=== PATIENT | female | born 1955 | race Caucasian/White ===

== ENCOUNTER 2018-02-18 23:25 | Observation (INO) ==
[2018-02-18] MEDS ORDERED: Ipratropium/Albuterol Neb 3 ML IH STA (23:51)
[2018-02-18] MEDS ORDERED: Aspirin 81 MG TAB.CHEW PO STA (23:51)
--- NOTE | 2018-02-18 23:55 | Emergency Department Note ---
Disposition Clinical Impression: Chest pain Qualifiers: Chest pain type: unspecified Qualified Code(s): R07.9 - Chest pain, unspecified Congestive heart failure Qualifiers: Heart failure type: unspecified Heart failure chronicity: chronic Qualified Code(s): I50.9 - Heart failure, unspecified COPD (chronic obstructive pulmonary disease) Qualifiers: COPD type: unspecified COPD Qualified Code(s): J44.9 - Chronic obstructive pulmonary disease, unspecified Asthma Qualifiers: Asthma severity: unspecified severity Asthma persistence: unspecified Asthma complication type: unspecified Qualified Code(s): J45.909 - Unspecified asthma, uncomplicated Disposition: Admitted As Inpatient Condition: Fair Referrals: Jagdeep Walters MD [Primary Care Provider] - Forms: ED Satisfaction Letter General Adult HPI - General Chief complaint: ED Shortness of Breath/Dyspnea Stated complaint: GEETA Time Seen by Provider: 02/18/18 23:29 Source: patient, EMS Limitations: no limitations - History of Present Illness HPI Narrative: Patient presents complaining of shortness of breath today associated with some intermittent chest discomfort. The last time she felt chest pain was about 6 PM. The pain is an aching discomfort in both sides of her chest, not made worse with a deep breath or with a cough. Her dyspnea is made with his exertion , chest pain is not worse with exertion. She has not had a fever or cough, no hemoptysis. She cannot tell me whether this feels more like her previous episodes of heart failure or more like her previous episodes of exacerbations of asthma or COPD. No recent travel, trauma or surgery. She has a hysterectomy scheduled in the coming weeks, she says that they do not know if she has cancer or not, and that they will find out when they do the hysterectomy. No prior history of cancer. She is not on hormone replacement. No history of DVT or PE. She is on home oxygen for pulmonary disease. Pain Scale: 0 - Related Data Home Medications Medication Instructions Recorded Confirmed ALPRAZolam [Xanax 0.5 MG Tablet] 0.5 mg PO TID PRN #0 05/06/15 05/01/16 Gabapentin [Neurontin] 600 mg PO QAM #0 05/06/15 05/01/16 Ergocalciferol (VITAMIN D2) 50,000 unit PO MO #0 09/16/15 05/01/16 [Vitamin D2 (50,000 UNIT)] Albuterol Sulfate [Albuterol 2 puff IH Q6HR PRN 05/01/16 05/01/16 Inhaler] Celecoxib [Celebrex] 200 mg PO DAILY 05/01/16 05/01/16 Citalopram Hydrobromide [Celexa] 40 mg PO HS 05/01/16 05/01/16 Gabapentin [Neurontin] 1,200 mg PO HS 05/01/16 05/01/16 HYDROcodone/Acet 5/325 mg [[place] 1 tab PO Q12H PRN 05/01/16 05/01/16 5-325 mg] Ipratropium/Albuterol Neb [Duoneb] 3 ml IH Q6HR PRN 05/01/16 05/01/16 Meloxicam [Mobic] 15 mg PO DAILY 05/01/16 05/01/16 Montelukast [Singulair] 10 mg PO HS 05/01/16 05/01/16 Simethicone [Bicarsim] 80 mg PO BID 05/01/16 05/01/16 Torsemide [Demadex] 10 mg PO DAILY PRN 05/01/16 05/01/16 Previous Rx's Medication Instructions Recorded Atorvastatin [Lipitor] 40 mg PO HS #30 tablet 11/17/15 Nitroglycerin 0.4 mg SL Q5MIN PRN #90 tab.subl 11/17/15 Aspirin Enteric Coated [Aspirin EC] 325 mg PO DAILY #21 tablet. 04/30/16 OxyCODONE Immed Rel [Roxicodone 5 5 - 10 mg PO Q6HR PRN #40 tablet 04/30/16 MG] ALPRAZolam [Xanax 0.5 MG Tablet] 0.5 mg PO TID PRN #30 tablet 05/05/16 Promethazine/Phenyleph/Codeine 5 ml PO Q6H PRN #120 ml 06/09/16 [Promethazine Vc-Codeine Syrup] cephALEXin [Keflex] 500 mg PO QID #40 capsule 06/09/16 Amoxicillin/Clavulanate [Augmentin] 875 mg PO BIDWM #20 tablet 06/10/16 Promethazine [Phenergan] 25 mg PO Q6HR PRN #16 tablet 09/01/16 Amoxicillin/Clavulanate [Augmentin] 875 mg PO BIDWM #20 tablet 10/25/16 Promethazine/Dextromethorphan 5 ml PO Q4H PRN #120 ml 10/25/16 [Promethazine-Dm Syrup] Ondansetron ODT [Zofran ODT] 4 mg SL Q6HR #10 tab.rapdis 03/10/17 Ondansetron ODT [Zofran ODT] 4 mg SL Q6HR PRN #20 tab.rapdis 04/05/17 predniSONE [PredniSONE] 60 mg PO DAILY #15 tablet 04/05/17 predniSONE [PredniSONE] 60 mg PO NOW #15 tablet 07/22/17 Allergies Allergy/AdvReac Type Severity Reaction Status Date / Time acetaminophen [From Vicodin] Allergy Unknown Vomiting Verified 07/02/17 21:11 hydrocodone [From Vicodin] Allergy Unknown Vomiting Verified 07/02/17 21:11 All systems ED: reviewed and negative except as stated. Past Medical History - Past Medical History Medical history: Reports: asthma, CHF, COPD, hypertension Surgical history: Reports: cholecystectomy, other Psychiatric history: Reports: anxiety [employer] history: Reports: bilateral tubal ligation - Social History Smoking Status: Never smoker Smokeless Tobacco Status: No Alcohol use: Reports: occasionally Drug use: Reports: none Physical Exam Vital signs noted please see nurse's notes. Gen.: Well-developed, well-nourished patient lying in bed who appears nontoxic. Head: Atraumatic, normocephalic. Eyes: Sclerae anicteric. ENT: Mucous membranes moist. Neck: No JVD Heart: Regular rate and rhythm without appreciable murmur. Lungs: Normal respiratory pattern without respiratory distress, breath sounds somewhat diminished, no rales, rhonchi or wheezing appreciated. No conversational dyspnea Abdomen: Soft, nontender, nondistended, no guarding or peritoneal signs. Skin: Warm and dry without rash. Neurologic: Awake, alert with normal speech and mental status. Cranial nerves grossly intact. No focal deficits or lateralizing signs. Psychiatric: Normal mood and affect. Musculoskeletal: No peripheral edema. No signs of trauma or DVT. Peripheral vascular: Radial pulses 2+ and symmetrical bilaterally. - General Limitations: no limitations General appearance: alert, in no apparent distress Course Vital Signs Temperature 98.6 F 02/18/18 23:28 Pulse Rate 70 02/18/18 23:28 Respiratory Rate 18 02/18/18 23:28 Blood Pressure 174/90 02/18/18 23:28 O2 Sat by Pulse Oximetry 97 02/18/18 23:28 Temperature 98.6 F 02/18/18 23:28 Pulse Rate 70 02/18/18 23:28 Respiratory Rate 18 02/19/18 00:11 Blood Pressure 174/90 02/18/18 23:28 O2 Sat by Pulse Oximetry 97 02/19/18 00:11 Oxygen Delivery Oxygen Delivery Nasal Cannula Medical Decision Making - MDM Narrative Medical decision making narrative: D-dimer is below the age-adjusted cutoff, she is low-risk by Wells criteria, PE is excluded. Her HEART score is 4 (1 for history, 1 for age, 2 for risk factors) . Will call for admission. Chest pain free at the time of admission, dyspnea improved after nebulizer treatments. - Lab Data Result diagrams: 02/19/18 00:07 02/19/18 00:07 Lab Results 02/19/18 02/19/18 02/19/18 Range/Units 00:07 00:07 00:07 WBC 8.2 (4.3-11.1) K/mcL RBC 4.31 (3.82-4.97) M/mcL Hgb 13.1 (11.5-15.4) g/dL Hct 38.8 (35.3-44.9) % MCV 90.0 (83.0-100.0) fL MCH 30.4 (28.0-33.3) pg MCHC 33.8 (31.6-35.5) g/dL RDW 13.5 (11.5-14.5) % Plt Count 229 (140-400) K/mcL MPV 9.9 (9.4-12.4) fL D-Dimer 565 H (0-500) ng/mLFEU Sodium 138 (136-145) mEq/L Potassium 3.6 (3.5-5.1) mEq/L Chloride 101 (98-107) mEq/L Carbon Dioxide 27 (23-29) mEq/L BUN 11 (8-23) mg/dL Creatinine 0.89 (0.60-1.20) mg/dL Est GFR ( Amer) > 60 (> 60) Est GFR (Non-Af Amer) > 60 (> 60) BUN/Creatinine Ratio 12 (6-26) Glucose 146 H (70-105) mg/dL Calculated Osmolality 288 (280-300) Calcium 8.9 (8.6-10.3) mg/dL Troponin I < 0.03 (< 0.04) ng/mL B-Natriuretic Peptide (Less than 100) pg/mL 02/19/18 Range/Units 00:07 WBC (4.3-11.1) K/mcL RBC (3.82-4.97) M/mcL Hgb (11.5-15.4) g/dL Hct (35.3-44.9) % MCV (83.0-100.0) fL MCH (28.0-33.3) pg MCHC (31.6-35.5) g/dL RDW (11.5-14.5) % Plt Count (140-400) K/mcL MPV (9.4-12.4) fL D-Dimer (0-500) ng/mLFEU Sodium (136-145) mEq/L Potassium (3.5-5.1) mEq/L Chloride (98-107) mEq/L Carbon Dioxide (23-29) mEq/L BUN (8-23) mg/dL Creatinine (0.60-1.20) mg/dL Est GFR ( Amer) (> 60) Est GFR (Non-Af Amer) (> 60) BUN/Creatinine Ratio (6-26) Glucose (70-105) mg/dL Calculated Osmolality (280-300) Calcium (8.6-10.3) mg/dL Troponin I (< 0.04) ng/mL B-Natriuretic Peptide 71 (Less than 100) pg/mL - EKG Data EKG #1 EKG attestation: Yes I reviewed and interpreted this EKG. EKG shows normal: sinus rhythm (Rate 67, normal intervals and QRS duration. No acute ischemic changes. No evidence of right heart strain. Other than a flattened T-wave in lead aVL, this is a normal EKG.)
[2018-02-19 00:17] LABS: Hematocrit 38.8 % (35.3-44.9); Hemoglobin 13.1 g/dL (11.5-15.4); Mean Corpuscular HGB Conc 33.8 g/dL (31.6-35.5); Mean Corpuscular Hemoglobin 30.4 pg (28.0-33.3); Mean Platelet Volume 9.9 fL (9.4-12.4); Platelet Count 229 K/mcL (140-400); Red Blood Count 4.31 M/mcL (3.82-4.97); Red Cell Distribution Width 13.5 % (11.5-14.5)
[2018-02-19 00:39] LABS: BUN/Creatinine Ratio 12 (6-26); Blood Urea Nitrogen 11 mg/dL (8-23); Calcium 8.9 mg/dL (8.6-10.3); Carbon Dioxide 27 mEq/L (23-29); Chloride 101 mEq/L (98-107); Glucose 146 mg/dL (70-105); Osmolality,Calculated 288 (280-300); Potassium 3.6 mEq/L (3.5-5.1); Sodium 138 mEq/L (136-145); Troponin I < 0.03 ng/mL (< 0.04); eGFR For African Americans > 60 (> 60); eGFR For Non-African Americans > 60 (> 60)
[2018-02-19] MEDS ORDERED: predniSONE 20 MG TABLET PO STA (01:22)
[2018-02-19] MEDS ORDERED: Naloxone 0.4 MG/ML INJ IVP PRN (04:38)
[2018-02-19] MEDS ORDERED: Isovue-370 500 ML INFUS..BTL IV ONE ×2 (04:38→10:50)
[2018-02-19] MEDS ORDERED: *HR* Enoxaparin 120 MG/0.8 ML SYRINGE SQ STA (04:38)
[2018-02-19] MEDS ORDERED: Albuterol 2.5 MG/3 ML NEBULIZER IH PRN (04:38)
--- NOTE | 2018-02-19 05:21 | Internal Med History&Physical ---
Date of Encounter: 02/19/18 Time of Encounter: 04:35 Internal Medicine - H&P: HPI Chief complaint: chest pain Admitted From: Emergency Dept Plans for Post Hospital Care: Home History of present illness: Ms. Gunter is a 62 year old female who presents to the ER tonight with complaints of chest pain and shortness of breath. She was lying in bed resting comfortably and playing with her grandson when she developed sudden onset of sharp and heavy chest pain associatied with shortness of breath. Symptoms would not resolve and persisted. She therefore came to ER for evaluation. Workup in ER was negative except for an elevated d-dimer. According to ER staff , the d-dimer was age-adjusted and within normal. She was therefore admitted to hospitalist service for further workup and care. I reviewed old records and note that she just had a stress test 5 days ago which was negative. When I assessed the patient and discussed with her the symptoms and history, she describes the chest pain as sharp and heaviness and associated with dyspnea. It is different than the chest pain she was experiencing which led to her stress test. She denies any prior history of clots. She has no prolonged travel. History is negative for clots. However, she is currently being worked up for gynecologic cancer and is due to have a hysterectomy in a few weeks at [facility]. Given the possibility of gynecologic cancer and elevated d-dimer, I am rather concerned about the possibility of pulmonary embolus. Therefore, we will proceed with CT angiogram of the chest, Dopplers of the legs, and a one-time dose of Lovenox. Patient denies any significant flareup of her asthma/COPD. She states she uses albuterol aerosols at home and has not had any change in status or her breathing beyond her baseline. Past Med Surg Social Fam HX - Past Medical History Attestation: Yes The following information was validated with the patient. Source: patient, old records reviewed Medical history: asthma, CHF, COPD, hypertension Additional medical history: chronic back pains Psychiatric history: anxiety - Past Surgical History Surgical History: cholecystectomy Additional surgical history: tubal. colonoscopy - Social History Smoking Status: Never smoker Smokeless Tobacco Status: No Alcohol use: occasionally Drug use: none Current living situation: Home, With Family Activity Level: Independent ambulation Recent Out of Country Travel Within the Last 8 Weeks: No - Family History Mother Living Status: Hx Family Cardiac Disorders: Yes Hx Family Respiratory Disorders: Yes Internal Medicine - H&P: Meds ALPRAZolam [Xanax 0.5 MG Tablet] 0.5 mg PO TID PRN #0 05/06/15 [History] Gabapentin [Neurontin] 600 mg PO QAM #0 05/06/15 [History] Ergocalciferol (VITAMIN D2) [Vitamin D2 (50,000 UNIT)] 50,000 unit PO MO #0 [History] Atorvastatin [Lipitor] 40 mg PO HS #30 tablet 11/17/15 [Rx] Nitroglycerin 0.4 mg SL Q5MIN PRN #90 tab.subl 11/17/15 [Rx] Aspirin Enteric Coated [Aspirin EC] 325 mg PO DAILY #21 tablet.dr 04/30/16 [Rx] OxyCODONE Immed Rel [Roxicodone 5 MG] 5 - 10 mg PO Q6HR PRN #40 tablet 04/30/16 [Rx] Albuterol Sulfate [Albuterol Inhaler] 2 puff IH Q6HR PRN 05/01/16 [History] Celecoxib [Celebrex] 200 mg PO DAILY 05/01/16 [History] Citalopram Hydrobromide [Celexa] 40 mg PO HS 05/01/16 [History] Gabapentin [Neurontin] 1,200 mg PO HS 05/01/16 [History] HYDROcodone/Acet 5/325 mg [[place] 5-325 mg] 1 tab PO Q12H PRN 05/01/16 [History] Ipratropium/Albuterol Neb [Duoneb] 3 ml IH Q6HR PRN 05/01/16 [History] Meloxicam [Mobic] 15 mg PO DAILY 05/01/16 [History] Montelukast [Singulair] 10 mg PO HS 05/01/16 [History] Simethicone [Bicarsim] 80 mg PO BID 05/01/16 [History] Torsemide [Demadex] 10 mg PO DAILY PRN 05/01/16 [History] ALPRAZolam [Xanax 0.5 MG Tablet] 0.5 mg PO TID PRN #30 tablet 05/05/16 [Rx] Promethazine/Phenyleph/Codeine [Promethazine Vc-Codeine Syrup] 5 ml PO Q6H PRN # 120 ml 06/09/16 [Rx] cephALEXin [Keflex] 500 mg PO QID #40 capsule 06/09/16 [Rx] Amoxicillin/Clavulanate [Augmentin] 875 mg PO BIDWM #20 tablet 06/10/16 [Rx] Promethazine [Phenergan] 25 mg PO Q6HR PRN #16 tablet 09/01/16 [Rx] Amoxicillin/Clavulanate [Augmentin] 875 mg PO BIDWM #20 tablet 10/25/16 [Rx] Promethazine/Dextromethorphan [Promethazine-Dm Syrup] 5 ml PO Q4H PRN #120 ml [Rx] Ondansetron ODT [Zofran ODT] 4 mg SL Q6HR #10 tab.rapdis 03/10/17 [Rx] Ondansetron ODT [Zofran ODT] 4 mg SL Q6HR PRN #20 tab.rapdis 04/05/17 [Rx] predniSONE [PredniSONE] 60 mg PO DAILY #15 tablet 04/05/17 [Rx] predniSONE [PredniSONE] 60 mg PO NOW #15 tablet 07/22/17 [Rx] 3 Allergy/AdvReac Type Severity Reaction Status Date / Time acetaminophen [From Vicodin] Allergy Unknown Vomiting Verified 07/02/17 21:11 hydrocodone [From Vicodin] Allergy Unknown Vomiting Verified 07/02/17 21:11 - Constitutional Constitutional: no chills, no fever(s), no night sweats - EENT Eyes: no change in vision Ears: no ear pain, no tinnitus Nose, mouth and throat: no nasal congestion, no sore throat - Cardiovascular Cardiovascular ROS IM: chest pain, dyspnea, dyspnea on exertion, palpitations - Respiratory Respiratory: wheezing, no cough, no hemoptysis, no chest congestion, no excessive phlegm production, no change in phlegm color - Gastrointestinal Gastrointestinal: no abdominal pain, no diarrhea, no hematemesis, no hematochezia, no melena, no vomiting - Genitourinary Genitourinary: no dysuria, no flank pain, no hematuria - Musculoskeletal Musculoskeletal ROS IM: back pain, no arthralgias - Integumentary Integumentary IM: no rash, no jaundice - Neurological Neurological ROS: no dizziness, no focal weakness, no frequent falls, no headache(s) - Psychiatric Psychiatric: no anxiety, no depression - Endocrine Endocrine IM: no polydipsia, no polyuria - Allergic/Immunologic Allergic/Immunologic: wheezing, no GI upset with certain foods - Constitutional Vitals: Temp Pulse Resp BP Pulse Ox 97.7 F 72 15 153/75 97 02/19/18 02:57 02/19/18 02:57 02/19/18 02:57 02/19/18 02:57 02/19/18 02:57 General appearance: Present: cooperative, A&O X 3, morbidly obese, no acute distress, answers questions appropriately - Head Head exam: Present: atraumatic, normal inspection - Eye Eye exam: Present: EOMI, PERRL. Absent: scleral icterus Pupils: Present: normal accommodation - ENT ENT exam: Present: mucous membranes dry, normal exam, normal oropharynx - Neck Neck exam general surgery: Present: full ROM, supple. Absent: tenderness, nuchal rigidity, thyromegaly - Respiratory Respiratory exam: Present: prolonged expiratory phase, wheezes (faint). Absent : accessory muscle use, chest wall tenderness, rales, respiratory distress, rhonchi - Cardiovascular Cardiovascular exam: Present: distant heart sounds, RRR, +S1, +S2. Absent: diastolic murmur, systolic murmur - GI/Abdominal GI/Abdominal exam: Present: normal bowel sounds, soft. Absent: hepatomegaly, mass, splenomegaly, tenderness - Extremities Exam Extremities exam: Present: full ROM, warm, radial pulses palpable and symmetrical. Absent: calf tenderness, joint swelling, pedal edema, tenderness - Back Exam Back exam: Absent: CVA tenderness (L), CVA tenderness (R) - Neurological Exam Neurological exam: Present: alert, CN II-XII intact, oriented X3, no focal deficits - Psychiatric Psychiatric exam: Present: normal affect, normal mood - Skin Skin exam: Present: dry, warm. Absent: rash Internal Med - H&P Results - Labs CBC & Chem 7: 02/19/18 00:07 02/19/18 00:07 - EKG Data -: EKG Interpreted by Myself (NSR; no acute ST-T changes) - Impressions ITS Impressions Chest X-Ray 02/19/18 23:51 IMPRESSION: No acute cardiopulmonary abnormality. D/ / Armando Mattson / Armando Mattson Interpreting Provider: Armando Mattson - Diagnostic Studies Chest x-ray Status: image reviewed by me (negative) - Assessment and plan (1) Chest pain Current Visit: Yes Status: Acute Assessment and plan: 1. I have a higher index of suspicion for PE than ER. 2. Will proceed with CTA chest and BLE Dopplers. 3. I ordered a one time dose of Lovenox 1 mg/kg SQ now. Further anti- coagulation vs DVT prophylaxis o be determined by primary team once above test results become available. 4. Stress test negative 5 days ago. 5. Trend troponins and EKG. Qualifiers: Chest pain type: precordial pain Qualified Code(s): R07.2 - Precordial pain (2) Asthma Current Visit: Yes Status: Chronic Assessment and plan: 1. Will schedule aerosols and oxygen. 2. Resume home meds as appropriate once verified. Qualifiers: Asthma severity: moderate Asthma persistence: persistent Asthma complication type: unspecified Qualified Code(s): J45.40 - Moderate persistent asthma, uncomplicated (3) DVT prophylaxis Current Visit: Yes Status: Acute Assessment and plan: 1. Lovenox 1 time dose as above. 2. Further prophylaxis vs full anti-coagulation to be determined per primary team after above testing/imaging.
[2018-02-19 05:44] LABS: INR 1.1
[2018-02-19 05:47] LABS: Activated Partial Thrombo Time 29.3 Seconds (26.0-36.0)
[2018-02-19] MEDS: Ipratropium/Albuterol Neb 3 ML IH SCH ×2 (07:59→11:28)
[2018-02-19 12:18] VITALS: BP 159/84
--- NOTE | 2018-02-19 13:57 | Discharge Summary ---
- NOTES TO OUTPATIENT PROVIDER Notes to Outpatient Provider: Pt was admitted for chest pain and shortness of breath. Patient had negative stress test on 02/13/18. Patient was admitted due to new history of possible gynecological cancer and increased risk for PE, patient had elevated d-dimer in the emergency department. Chest CTA was negative for PE and BLE venous dopplers were negative for PE. Troponins were negative and her EKG was NSR with no acute ischemic changes. Recommend follow up with PCP for continued monitoring. Orders not resulted at time of discharge: Pending orders 02/19/18 06:00 ECG 12 lead ECG [ECG] AM 0600 02/19/18 17:15 Troponin I Q6H 02/20/18 04:00 Complete Blood Count [HEME] AM 0400 Comprehensive Metabolic Panel AM 0400 Date of Encounter: 02/19/18 Time of Encounter: 10:45 - Discharge Diagnosis (1) Chest pain Priority: Primary Status: Acute Assessment and Plan: Pt reports chest pain and shortness of breath while resting in bed and playing with her grandson. She described the pain at sudden and short, heavy with associated with SOB. Pt had elevated d-dimer and was admitted due to concern of increased risk of PE secondary to potential gynecological cancer. Patient is being worked up at the [facility] and is to have a hysterectomy in the near future. Troponins were negative, EKG was normal sinus rhythm with no acute ST changes. Patient had a negative stress test on 02/13/18 with a gated EF of 52%. Chest CTA was negative for PE or any acute processes, bilateral lower extremity venous Dopplers were negative for DVT. Unclear etiology for chest pain, likely musculoskeletal in nature since she was playing with her grandchild. The pain is not reproducible palpation, movement, or inspiration. Qualifiers: Chest pain type: precordial pain Qualified Code(s): R07.2 - Precordial pain (2) Asthma Priority: Secondary Status: Chronic Assessment and Plan: Chronic. No acute exacerbation. Lungs are clear and diminished throughout. Continue home medications. Qualifiers: Asthma severity: moderate Asthma persistence: persistent Asthma complication type: unspecified Qualified Code(s): J45.40 - Moderate persistent asthma, uncomplicated (3) DVT prophylaxis Priority: Secondary Status: Acute Assessment and Plan: Patient received 1 time Lovenox dose, patient is being discharged no further DVT prophylaxis necessary. (4) Morbid obesity Priority: Secondary Status: Chronic Assessment and Plan: Chronic. Encourage lifestyle modifications. (5) DMII (diabetes mellitus, type 2) Priority: Secondary Status: Chronic Assessment and Plan: Last A1c in November, was 5.7%. Continue home medications and Accu-Chek regimen. 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 Well controlled. Continue home medications. Qualifiers: Hypertension type: essential hypertension Qualified Code(s): I10 - Essential (primary) hypertension Hospital course: Ms. Gunter is a 62 year old female with past medical history of hypertension, diabetes, anxiety, right knee arthritis, CHF, COPD, morbid obesity. She presented to the emergency department with chest pain that began while she was resting in bed playing with her grandson. The pain did not resolve quickly she presented for evaluation. Patient had negative stress test with a preserved ejection fraction 5 days ago. EKG was negative for ischemic changes and was normal sinus rhythm. Troponins were negative. The pain is not reproducible. Patient reports newly diagnosed possible gynecological cancer and is having a hysterectomy and evaluation at the [facility] in a few weeks. Patient elevated d-dimer in the emergency department but her chest CTA was negative for PE or any acute processes, bilateral lower extremity Dopplers were negative for DVTs. Currently unclear etiology for chest pain other than possible musculoskeletal chest pain secondary to playing with her grandson. The pain has resolved and patient states that she is feeling better. She also reports that she needs to be discharged today before 4 PM so she can go home and care for her disabled brother at home. Patient's vital signs are stable and within normal limits, as are her labs. Discharge discussed with: patient - Time Spent with Patient Total time spent providing and/or coordinating discharge services: Less than 30 minutes - Discharge Medications Home Medications: Gabapentin [Neurontin] 600 mg PO QAM #0 05/06/15 [History] Ergocalciferol (VITAMIN D2) [Vitamin D2 (50,000 UNIT)] 50,000 unit PO MO #0 [History] Atorvastatin [Lipitor] 40 mg PO HS #30 tablet 11/17/15 [Rx] Nitroglycerin 0.4 mg SL Q5MIN PRN #90 tab.subl 11/17/15 [Rx] Aspirin Enteric Coated [Aspirin EC] 325 mg PO DAILY #21 tablet.dr 04/30/16 [Rx] Albuterol Sulfate [Albuterol Inhaler] 2 puff IH Q6HR PRN 05/01/16 [History] Citalopram Hydrobromide [Celexa] 40 mg PO HS 05/01/16 [History] Gabapentin [Neurontin] 1,200 mg PO HS 05/01/16 [History] Ipratropium/Albuterol Neb [Duoneb] 3 ml IH Q6HR PRN 05/01/16 [History] Meloxicam [Mobic] 15 mg PO DAILY 05/01/16 [History] Montelukast [Singulair] 10 mg PO HS 05/01/16 [History] Simethicone [Bicarsim] 80 mg PO BID 05/01/16 [History] Ondansetron ODT [Zofran ODT] 4 mg SL Q6HR PRN #20 tab.rapdis 04/05/17 [Rx] ALPRAZolam [Xanax 1 MG Tablet] 1 mg PO BID PRN 02/19/18 [History] Allergies/Adverse Reactions: 3 Allergy/AdvReac Type Severity Reaction Status Date / Time acetaminophen [From Vicodin] Allergy Unknown Vomiting Verified 07/02/17 21:11 hydrocodone [From Vicodin] Allergy Unknown Vomiting Verified 07/02/17 21:11 Date of admission: 02/19/18 01:42 Primary care physician: Jagdeep Walters MD Discharging clinician: Kimberly Pinedo Anticipated date of discharge: 02/19/18 - Constitutional Vitals: Temp Pulse Resp BP Pulse Ox 97.6 F 55 16 159/84 96 02/19/18 12:16 02/19/18 12:16 02/19/18 12:16 02/19/18 12:16 02/19/18 12:16 General appearance: Present: cooperative, A&O X 3, morbidly obese, no acute distress, answers questions appropriately - Head Head exam: Present: atraumatic, normal inspection, normocephalic - Eye Eye exam: Present: normal appearance, conjuntiva pink, sclera anicteric - Neck Neck exam general surgery: Present: supple, trachea midline. Absent: lymphadenopathy, tenderness - Respiratory Respiratory exam: Present: CTAB. Absent: accessory muscle use, chest wall tenderness, rales, respiratory distress, rhonchi, wheezes - Cardiovascular Cardiovascular exam: Present: RRR, +S1, +S2. Absent: diastolic murmur, gallop, rubs, systolic murmur - GI/Abdominal GI/Abdominal exam: Present: normal bowel sounds, soft. Absent: distended, hepatomegaly, tenderness - Extremities Exam Extremities exam: Present: normal capillary refill, normal inspection, warm, radial pulses palpable and symmetrical. Absent: calf tenderness, cyanotic, pedal edema, tenderness - Neurological Exam Neurological exam: Present: alert, oriented X3, no focal deficits. Absent: altered, facial droop, speech deficit - Skin Skin exam: Present: dry, intact, normal color, warm. Absent: rash - Patient Status Disposition: Home, Self-Care Condition: Good Functional capacity at discharge: independent ambulation Overall status at discharge: patient is progressing back to baseline - Discharge Instructions Follow Up With: Jagdeep Walters MD [Primary Care Provider] - Additional Instructions: Please follow up with your PCP in the next 5-7 days for a recheck. Return to the ER immediately if your pain returns or is worse. Take your normal medications as directed and return to your normal diet and activities. - Diet and Activity Activity: increase activity as tolerated Diet: diabetic diet, low fat, low cholesterol, low salt diet
--- NOTE | 2018-02-19 17:27 | Electrocardiograph Report ---
[address] [address] Test Date: 2018-02-18 Pat Name: Nancy Gunter Department: 103 Room: 3B Gender: F Soup Person: MICHELE : 1955 Requested By: Valentin Pastrana Order Number: [id number] Reading MD: Syeda Castelan Measurements Intervals [place] Rate: 67 P: -45 [place]: 145 QRS: 31 QRSD: 100 T: 60 QT: 400 QTc: 415 Interpretive Statements SINUS RHYTHM NONSPECIFIC T-WAVE ABNORMALITY Electronically Signed On 02-19-2018 17:25:47 EDT by Syeda Castelan
== END 2018-02-19 15:29 | disposition home or self-care (01) ==
LOC: 3BNU 23:25 → EMEROO 23:25 → 3BNU 02-19 02:24
PROVIDERS: ADMIT Pediatrics; ATTEND Family Medicine

== ENCOUNTER 2018-02-23 22:28 | Inpatient (IN) ==
[2018-02-23] MEDS ORDERED: methylPREDNISolone 125 MG/2 ML VIAL IVP ONE (22:36)
[2018-02-23] MEDS ORDERED: Ipratropium/Albuterol Neb 3 ML IH ONE (22:36)
[2018-02-23 23:15] LABS: Basophils % 0.1 %; Eosinophils % 0.1 %; Hematocrit 37.8 % (35.3-44.9); Hemoglobin 12.2 g/dL (11.5-15.4); Immature Granulocytes % 0.3 % (0-4); Lymphocytes # 2.8 K/mcL (0.6-4.6); Lymphocytes % 18.4 %; Mean Corpuscular HGB Conc 32.3 g/dL (31.6-35.5); Mean Corpuscular Hemoglobin 30.7 pg (28.0-33.3); Mean Corpuscular Volume 95.2 fL (83.0-100.0); Mean Platelet Volume 9.9 fL (9.4-12.4); Monocytes # 0.5 K/mcL (0.0-1.3); Monocytes % 3.1 %; Neutrophils # 11.8 K/mcL (1.6-8.9); Platelet Count 273 K/mcL (140-400); Red Blood Count 3.97 M/mcL (3.82-4.97); Red Cell Distribution Width 14.4 % (11.5-14.5)
[2018-02-23 23:17] LABS: VBG HCO3 35 mEq/L (21-27); VBG PCO2 83 mmHg (41-51); VBG PH 7.23 pH Units (7.32-7.42); VBG PO2 66 mmHg (25-50)
[2018-02-23 23:32] LABS: Calcium 9.3 mg/dL (8.6-10.3); Troponin I 0.13 ng/mL (< 0.04)
[2018-02-24] MEDS ORDERED: Levofloxacin 750 MG/150 ML 750 MG/150 ML BAG IVPB ONE (00:48)
[2018-02-24] MEDS ORDERED: 0.9 % Sodium Chloride 1,000 ML IVC ONE (00:52)
[2018-02-24 01:00] LABS: VBG HCO3 32 mEq/L (21-27); VBG PCO2 80 mmHg (41-51); VBG PH 7.21 pH Units (7.32-7.42); VBG PO2 82 mmHg (25-50)
[2018-02-24] MEDS ORDERED: Aspirin 325 MG TABLET PO ONE (01:09)
[2018-02-24] MEDS ORDERED: *HR* Rocuronium Bromide 50 MG/5 ML VIAL IVP ONE (01:28)
[2018-02-24] MEDS ORDERED: *HR* Etomidate 40 MG/20 ML VIAL IVP ONE (01:31)
--- NOTE | 2018-02-24 01:36 | Emergency Department Note ---
Disposition Clinical Impression: Acute exacerbation of chronic obstructive airways disease, HCAP (healthcare- associated pneumonia), Elevated troponin I level, CRYS (acute kidney injury) Sepsis Qualifiers: Sepsis type: sepsis due to unspecified organism Qualified Code(s): A41.9 - Sepsis, unspecified organism Acute respiratory failure Qualifiers: Respiratory failure complication: hypoxia and hypercapnia Qualified Code(s): J96.01 - Acute respiratory failure with hypoxia; J96.02 - Acute respiratory failure with hypercapnia Disposition: Admitted As Inpatient Condition: Critical Referrals: Jagdeep Walters MD [Primary Care Provider] - Time of Disposition: 01:57 SOB HPI - General Chief Complaint: ED Shortness of Breath/Dyspnea Stated Complaint: breating problem Time Seen by Provider: 02/23/18 22:36 Source: patient, EMS Limitations: altered mental status Nursing Notes Reviewed: Yes Vital Signs Reviewed: Yes - History of Present Illness Patient is a 62-year-old female who presents to [facility] ED with concern for respiratory failure. EMS was called to the house and states she was breathing approximately 6 times a minute and was blue. States she was not hooked up to any oxygen and the air conditioner was not on. Her oxygen saturation there was 56% on room air. They placed her on CPAP immediately and gave her 2 DuoNeb breathing treatments. Her saturation improved to 87% on the CPAP. Patient had just returned home from the [facility] after having a laparoscopic total hysterectomy 2 days ago. Patient denies any chest pain, abdominal pain, mainly just the shortness of breath. Past medical history significant for COPD and congestive heart failure. Pt Subjective Complaint: shortness of breath Onset (ago): hour(s) Severity: severe Improves with: nothing Worsens with: lying flat Known history of: COPD, congestive heart failure, diabetes Associated symptoms: Reports: wheezing. Denies: chest pain, fever, cough Treatment prior to arrival: oxygen, bronchodilator, NIPPV - Related Data Home Medications Medication Instructions Recorded Confirmed Gabapentin [Neurontin] 600 mg PO QAM #0 05/06/15 02/19/18 Ergocalciferol (VITAMIN D2) 50,000 unit PO MO #0 09/16/15 02/19/18 [Vitamin D2 (50,000 UNIT)] Albuterol Sulfate [Albuterol 2 puff IH Q6HR PRN 05/01/16 02/19/18 Inhaler] Citalopram Hydrobromide [Celexa] 40 mg PO HS 05/01/16 02/19/18 Gabapentin [Neurontin] 1,200 mg PO HS 05/01/16 02/19/18 Ipratropium/Albuterol Neb [Duoneb] 3 ml IH Q6HR PRN 05/01/16 02/19/18 Meloxicam [Mobic] 15 mg PO DAILY 05/01/16 02/19/18 Montelukast [Singulair] 10 mg PO HS 05/01/16 02/19/18 Simethicone [Bicarsim] 80 mg PO BID 05/01/16 02/19/18 ALPRAZolam [Xanax 1 MG Tablet] 1 mg PO BID PRN 02/19/18 02/19/18 Previous Rx's Medication Instructions Recorded Atorvastatin [Lipitor] 40 mg PO HS #30 tablet 11/17/15 Nitroglycerin 0.4 mg SL Q5MIN PRN #90 tab.subl 11/17/15 Aspirin Enteric Coated [Aspirin EC] 325 mg PO DAILY #21 tablet.dr 04/30/16 Ondansetron ODT [Zofran ODT] 4 mg SL Q6HR PRN #20 tab.rapdis 04/05/17 Allergies Allergy/AdvReac Type Severity Reaction Status Date / Time acetaminophen [From Vicodin] Allergy Unknown Vomiting Verified 07/02/17 21:11 hydrocodone [From Vicodin] Allergy Unknown Vomiting Verified 07/02/17 21:11 All systems ED: reviewed and negative except as stated. Past Medical History - Past Medical History Attestation: Yes The following information was validated with the patient. 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: bilateral tubal ligation - Social History Smoking Status: Never smoker Smokeless Tobacco Status: No Alcohol use: Reports: occasionally Drug use: Reports: none Physical Exam - General Limitations: altered mental status General appearance: obtunded - Head Head exam: atraumatic, normocephalic, normal inspection - Eye Eye exam: Present: normal appearance, EOMI - ENT ENT exam: normal exam, normal oropharynx, mucous membranes moist - Neck Neck exam: Present: normal inspection, full ROM, trachea midline - Chest Chest inspection: Present: normal inspection, symmetric chest wall rise - Respiratory Respiratory exam: Present: wheezes (Bilateral and very tight) - Cardiovascular Cardiovascular exam: Present: regular rate, normal rhythm, normal heart sounds - Abdominal Exam Abdominal exam: Present: soft, Non-Tender. Absent: tenderness, distention, guarding, rebound, rigidity - Extremities Exam Extremities exam: Present: normal inspection, full ROM. Absent: tenderness, pedal edema - Back Exam Back exam: Present: normal inspection, full ROM. Absent: tenderness - Neurological Exam Neurological exam: Present: other (awakens to verbal stim) - Psychiatric Psychiatric exam: Present: normal affect, normal mood - Skin Skin exam: Present: warm, dry, intact, normal color, other (Incision site on the abdomen without signs of erythema or wound dehiscence) Course Course Narrative: Patient seen and examined. Acute respiratory failure. Patient currently on CPAP upon her arrival to the emergency department. Respiratory therapy was called to bring down the BiPAP. Patient was switched over to BiPAP. Cardiopulmonary workup initiated. Patient's breath sounds were very tight bilaterally with expiratory wheezes and prolonged expiratory phase. Triple DuoNeb ordered as well as 125 mg Solu-Medrol. Patient's vital signs show a low- grade temperature. - Reevaluation(s) Reevaluation #1: Labwork shows an elevated troponin of 0.11. Unknown if this is primary cardiac or demand ischemia at this time. Aspirin ordered. Chest x-ray showed signs of a right lower lobe pneumonia. We will go ahead and treat with think and Levaquin to cover her for hospital acquired pneumonia. 1 L of IV fluids ordered. Patient awakens to verbal stimulation upon my reexamination. She is able to verbally respond without difficulty. Repeat VBG showed worsening acidosis and unchanged CO2. Patient is so bradypneic that I feel she has not adequately blowing off the CO2. I discussed intubation with her and her grandson who is present at the bedside. Patient will be intubated. 20 mg of etomidate and 100 mg of rocuronium ordered. Patient intubated with the glide scope on first attempt. Patient tolerated well. Post intubation chest x-ray ordered. We will admit to ICU for acute respiratory failure. I discussed with the hospitalist Dr. Barnard who has accepted patient for admission. Would also like Zosyn added for double pseudomonas coverage. Time: 01:48 Vital Signs Temperature 100.7 F H 02/23/18 22:30 Pulse Rate 116 02/23/18 22:30 Respiratory Rate 14 02/23/18 22:30 Blood Pressure 149/112 02/23/18 22:30 O2 Sat by Pulse Oximetry 99 02/23/18 22:30 Temperature 100.7 F H 02/23/18 22:30 Pulse Rate 98 02/24/18 01:21 Respiratory Rate 9 02/24/18 01:21 Blood Pressure 138/113 02/24/18 01:21 O2 Sat by Pulse Oximetry 97 02/24/18 01:21 Oxygen Delivery Oxygen Delivery Bipap Shortness of Breath/Dyspnea - Medical Records Medical records reviewed: Yes I reviewed the patient's medical records. - Lab Data Lab results reviewed: Yes I reviewed the patient's lab results. Result diagrams: 02/23/18 22:36 02/23/18 22:56 Lab Results 02/23/18 02/23/18 02/23/18 Range/Units 22:36 22:36 22:56 WBC 15.1 H D (4.3-11.1) K/mcL RBC 3.97 (3.82-4.97) M/mcL Hgb 12.2 (11.5-15.4) g/dL Hct 37.8 (35.3-44.9) % MCV 95.2 (83.0-100.0) fL MCH 30.7 (28.0-33.3) pg MCHC 32.3 (31.6-35.5) g/dL RDW 14.4 (11.5-14.5) % Plt Count 273 (140-400) K/mcL MPV 9.9 (9.4-12.4) fL Immature Gran % 0.3 (0-4) % Seg Neutrophils % 78.0 % Lymphocytes % 18.4 % Monocytes % 3.1 % Eosinophils % 0.1 % Basophils % 0.1 % Neutrophils # 11.8 H (1.6-8.9) K/mcL Lymphocytes # 2.8 (0.6-4.6) K/mcL Monocytes # 0.5 (0.0-1.3) K/mcL Eosinophils # 0.0 (0.0-0.6) K/mcL Basophils # 0.0 (0.0-0.2) K/mcL VBG pH (7.32-7.42) pH Units VBG pCO2 (41-51) mmHg VBG pO2 (25-50) mmHg VBG HCO3 (21-27) mEq/L Sodium 134 L (136-145) mEq/L Potassium 5.0 (3.5-5.1) mEq/L Chloride 98 (98-107) mEq/L Carbon Dioxide 29 (23-29) mEq/L BUN 28 H (8-23) mg/dL Creatinine 1.44 H (0.60-1.20) mg/dL Est GFR ( Amer) 45 L (> 60) Est GFR (Non-Af Amer) 37 L (> 60) BUN/Creatinine Ratio 19 (6-26) Glucose 158 H (70-105) mg/dL Calculated Osmolality 287 (280-300) Lactic Acid (0.5-2.2) mmol/L Calcium 9.3 (8.6-10.3) mg/dL Troponin I 0.13 H* (< 0.04) ng/mL B-Natriuretic Peptide 340 H (Less than 100) pg/mL Person Notif of Crit 02/23/18 02/23/18 02/24/18 Range/Units 23:05 23:07 00:54 WBC (4.3-11.1) K/mcL RBC (3.82-4.97) M/mcL Hgb (11.5-15.4) g/dL Hct (35.3-44.9) % MCV (83.0-100.0) fL MCH (28.0-33.3) pg MCHC (31.6-35.5) g/dL RDW (11.5-14.5) % Plt Count (140-400) K/mcL MPV (9.4-12.4) fL Immature Gran % (0-4) % Seg Neutrophils % % Lymphocytes % % Monocytes % % Eosinophils % % Basophils % % Neutrophils # (1.6-8.9) K/mcL Lymphocytes # (0.6-4.6) K/mcL Monocytes # (0.0-1.3) K/mcL Eosinophils # (0.0-0.6) K/mcL Basophils # (0.0-0.2) K/mcL VBG pH 7.23 L 7.21 L (7.32-7.42) pH Units VBG pCO2 83 H* 80 H* (41-51) mmHg VBG pO2 66 H 82 H (25-50) mmHg VBG HCO3 35 H 32 H (21-27) mEq/L Sodium (136-145) mEq/L Potassium (3.5-5.1) mEq/L Chloride (98-107) mEq/L Carbon Dioxide (23-29) mEq/L BUN (8-23) mg/dL Creatinine (0.60-1.20) mg/dL Est GFR ( Amer) (> 60) Est GFR (Non-Af Amer) (> 60) BUN/Creatinine Ratio (6-26) Glucose (70-105) mg/dL Calculated Osmolality (280-300) Lactic Acid 1.0 (0.5-2.2) mmol/L Calcium (8.6-10.3) mg/dL Troponin I (< 0.04) ng/mL B-Natriuretic Peptide (Less than 100) pg/mL Person Notif of [facility] - Radiology Data Radiology results reviewed: Yes I reviewed the patient's radiology results. Chest X-Ray 02/23/18 22:36 IMPRESSION: Right basilar atelectasis or pneumonia. D/ / Kevin Velazquez MD / Kevin Velazquez MD Interpreting Provider: Kevin Velazquez MD - EKG Data EKG attestation: Yes I reviewed and interpreted this EKG. EKG results narrative: EKG done at 2228 shows sinus tachycardia with a rate of [address] elevation or depression noted. Normal axis. Q waves present in lead 3 as well as inverted T wave.
[2018-02-24] MEDS ORDERED: Piperacillin/Tazobactam 3.375 GM in 0.9 % Sodium Chloride Mini Bag 100 ML IVPB ONE (02:02)
[2018-02-24] MEDS: Dexmedetomidine HCl 400 MCG/100 ML MLS IVC SCH ×2 (02:11→08:48)
--- NOTE | 2018-02-24 02:22 | Emergency Department Note ---
Disposition Clinical Impression: Acute exacerbation of chronic obstructive airways disease, HCAP (healthcare- associated pneumonia), Elevated troponin I level, CRYS (acute kidney injury) Sepsis Qualifiers: Sepsis type: sepsis due to unspecified organism Qualified Code(s): A41.9 - Sepsis, unspecified organism Acute respiratory failure Qualifiers: Respiratory failure complication: hypoxia and hypercapnia Qualified Code(s): J96.01 - Acute respiratory failure with hypoxia Disposition: Admitted As Inpatient Condition: Critical General Adult HPI - General Chief complaint: ED Shortness of Breath/Dyspnea Stated complaint: breating problem Time Seen by Provider: 02/23/18 22:36 Source: patient, EMS Limitations: altered mental status - History of Present Illness Pain Scale: 0 - Related Data Home Medications Medication Instructions Recorded Confirmed Gabapentin [Neurontin] 600 mg PO QAM #0 05/06/15 02/19/18 Ergocalciferol (VITAMIN D2) 50,000 unit PO MO #0 09/16/15 02/19/18 [Vitamin D2 (50,000 UNIT)] Albuterol Sulfate [Albuterol 2 puff IH Q6HR PRN 05/01/16 02/19/18 Inhaler] Citalopram Hydrobromide [Celexa] 40 mg PO HS 05/01/16 02/19/18 Gabapentin [Neurontin] 1,200 mg PO HS 05/01/16 02/19/18 Ipratropium/Albuterol Neb [Duoneb] 3 ml IH Q6HR PRN 05/01/16 02/19/18 Meloxicam [Mobic] 15 mg PO DAILY 05/01/16 02/19/18 Montelukast [Singulair] 10 mg PO HS 05/01/16 02/19/18 Simethicone [Bicarsim] 80 mg PO BID 05/01/16 02/19/18 ALPRAZolam [Xanax 1 MG Tablet] 1 mg PO BID PRN 02/19/18 02/19/18 Previous Rx's Medication Instructions Recorded Atorvastatin [Lipitor] 40 mg PO HS #30 tablet 11/17/15 Nitroglycerin 0.4 mg SL Q5MIN PRN #90 tab.subl 11/17/15 Aspirin Enteric Coated [Aspirin EC] 325 mg PO DAILY #21 tablet. 04/30/16 Ondansetron ODT [Zofran ODT] 4 mg SL Q6HR PRN #20 tab.rapdis 04/05/17 Allergies Allergy/AdvReac Type Severity Reaction Status Date / Time acetaminophen [From Vicodin] Allergy Unknown Vomiting Verified 07/02/17 21:11 hydrocodone [From Vicodin] Allergy Unknown Vomiting Verified 07/02/17 21:11 Past Medical History - Past Medical History Medical history: Reports: asthma, CHF, COPD, hypertension Surgical history: Reports: cholecystectomy Psychiatric history: Reports: anxiety [employer] history: Reports: bilateral tubal ligation - Social History Smoking Status: Never smoker Smokeless Tobacco Status: No Alcohol use: Reports: occasionally Drug use: Reports: none Physical Exam - General Limitations: altered mental status General appearance: obtunded Course Vital Signs Temperature 100.7 F H 02/23/18 22:30 Pulse Rate 116 02/23/18 22:30 Respiratory Rate 14 02/23/18 22:30 Blood Pressure 149/112 02/23/18 22:30 O2 Sat by Pulse Oximetry 99 02/23/18 22:30 Temperature 100.7 F H 02/23/18 22:30 Pulse Rate 98 02/24/18 01:21 Respiratory Rate 9 02/24/18 01:21 Blood Pressure 138/113 02/24/18 01:21 O2 Sat by Pulse Oximetry 97 02/24/18 01:21 Oxygen Delivery Oxygen Delivery Bipap Medical Decision Making - Lab Data Result diagrams: 02/23/18 22:36 02/23/18 22:56 Lab Results 02/23/18 02/23/18 02/23/18 Range/Units 22:36 22:36 22:56 WBC 15.1 H D (4.3-11.1) K/mcL RBC 3.97 (3.82-4.97) M/mcL Hgb 12.2 (11.5-15.4) g/dL Hct 37.8 (35.3-44.9) % MCV 95.2 (83.0-100.0) fL MCH 30.7 (28.0-33.3) pg MCHC 32.3 (31.6-35.5) g/dL RDW 14.4 (11.5-14.5) % Plt Count 273 (140-400) K/mcL MPV 9.9 (9.4-12.4) fL Immature Gran % 0.3 (0-4) % Seg Neutrophils % 78.0 % Lymphocytes % 18.4 % Monocytes % 3.1 % Eosinophils % 0.1 % Basophils % 0.1 % Neutrophils # 11.8 H (1.6-8.9) K/mcL Lymphocytes # 2.8 (0.6-4.6) K/mcL Monocytes # 0.5 (0.0-1.3) K/mcL Eosinophils # 0.0 (0.0-0.6) K/mcL Basophils # 0.0 (0.0-0.2) K/mcL VBG pH (7.32-7.42) pH Units VBG pCO2 (41-51) mmHg VBG pO2 (25-50) mmHg VBG HCO3 (21-27) mEq/L Sodium 134 L (136-145) mEq/L Potassium 5.0 (3.5-5.1) mEq/L Chloride 98 (98-107) mEq/L Carbon Dioxide 29 (23-29) mEq/L BUN 28 H (8-23) mg/dL Creatinine 1.44 H (0.60-1.20) mg/dL Est GFR ( Amer) 45 L (> 60) Est GFR (Non-Af Amer) 37 L (> 60) BUN/Creatinine Ratio 19 (6-26) Glucose 158 H (70-105) mg/dL Calculated Osmolality 287 (280-300) Lactic Acid (0.5-2.2) mmol/L Calcium 9.3 (8.6-10.3) mg/dL Troponin I 0.13 H* (< 0.04) ng/mL B-Natriuretic Peptide 340 H (Less than 100) pg/mL Person Notif of Crit 02/23/18 02/23/18 02/24/18 Range/Units 23:05 23:07 00:54 WBC (4.3-11.1) K/mcL RBC (3.82-4.97) M/mcL Hgb (11.5-15.4) g/dL Hct (35.3-44.9) % MCV (83.0-100.0) fL MCH (28.0-33.3) pg MCHC (31.6-35.5) g/dL RDW (11.5-14.5) % Plt Count (140-400) K/mcL MPV (9.4-12.4) fL Immature Gran % (0-4) % Seg Neutrophils % % Lymphocytes % % Monocytes % % Eosinophils % % Basophils % % Neutrophils # (1.6-8.9) K/mcL Lymphocytes # (0.6-4.6) K/mcL Monocytes # (0.0-1.3) K/mcL Eosinophils # (0.0-0.6) K/mcL Basophils # (0.0-0.2) K/mcL VBG pH 7.23 L 7.21 L (7.32-7.42) pH Units VBG pCO2 83 H* 80 H* (41-51) mmHg VBG pO2 66 H 82 H (25-50) mmHg VBG HCO3 35 H 32 H (21-27) mEq/L Sodium (136-145) mEq/L Potassium (3.5-5.1) mEq/L Chloride (98-107) mEq/L Carbon Dioxide (23-29) mEq/L BUN (8-23) mg/dL Creatinine (0.60-1.20) mg/dL Est GFR ( Amer) (> 60) Est GFR (Non-Af Amer) (> 60) BUN/Creatinine Ratio (6-26) Glucose (70-105) mg/dL Calculated Osmolality (280-300) Lactic Acid 1.0 (0.5-2.2) mmol/L Calcium (8.6-10.3) mg/dL Troponin I (< 0.04) ng/mL B-Natriuretic Peptide (Less than 100) pg/mL Person Notif of [facility] Critical Care Time Critical Care Time: Yes Total Critical Care Time: 60 Attestation: Critical care performed: Time is exclusive of separately billable procedures. Time includes: direct patient care, patient reassessment, coordination of patient care, interpretation of data (laboratory data, radiology data, and respiratory data), review of patient's medical records, medical consultation and documentation of patient care. Procedures included in critical care time: Procedures excluded from critical care time: Endotracheal intubation Attestation Statement - Attestation Attestation: IJon MD, personally evaluated this patient and discussed their management with the resident physician. I reviewed the resident's note and agree with the documented findings, medical decision making, and plan of care. 62-year-old female presents to the emergency department by EMS for respiratory distress. Patient had a robotic-assisted total hysterectomy at [facility] yesterday for a malignant pelvic mass. She just came home today from [facility] and apparently left there AMA. Family states that she arrived home about 4 PM. About 5:30 or 6 PM she started developing increased shortness of breath. She does have a history of COPD and CHF. She has home oxygen but was not using it. EMS reports that when they arrived the patient was on the floor and was very cyanotic and hypoventilating. Altered mental status. They report that there was no air conditioning and the house was extremely hot. They placed the patient on BiPAP and gave her a nebulizer treatment in route to the emergency department with some improvement in her condition. Her initial oxygen saturation was 56% on room air at the home. On examination patient is a well-developed morbidly obese female in moderate respiratory distress. She is very drowsy but responds to verbal stimuli and answers questions appropriately. There is no cyanosis or diaphoresis on arrival here. Breath sounds are markedly decreased bilaterally with prolonged expiratory phase and tight expiratory wheezes. Heart tachycardic and regular. Abdomen soft with present bowel sounds. Chest x-ray showed a right basilar atelectasis versus pneumonia. Labs reviewed. Patient acidotic with pH of 7.23 and PCO2 of 83 on her VBG. She was continued on the BiPAP here in the emergency department and had clinical improvement as far as improved oxygen saturations and decreased heart rate. She maintained a stable blood pressure. However patient continued to be very drowsy but would respond to verbal stimuli. A repeat ABG showed PCO2 improved only to 80 and her pH actually went down to 7.21. The decision was made to intubate the patient. She was intubated orally by Dr. Benjamin on first attempt without difficulty. The hospitalist, Dr. Barnard, was consulted and accepted admission of the patient.
[2018-02-24] MEDS ORDERED: *HR* Dextrose 50 % in Water (Syg) 50 ML SYRINGE IVP PRN (03:12)
[2018-02-24] MEDS ORDERED: Dextrose Gel 15 GM/37.5 ML TUBE PO PRN ×2 (03:12)
[2018-02-24] MEDS ORDERED: D5% in Water 1,000 ML IVC PRN (03:12)
[2018-02-24] MEDS ORDERED: Lacri-Lube 3.5 GM TUBE BOTH EYES PRN (03:18)
--- NOTE | 2018-02-24 03:28 | Event Note ---
Date of Encounter: 02/24/18 Time of Encounter: 02:30 I have seen and examined this patient independently. I have talked with patient 's grandson regarding the history and explained to him treatment plan. I have discussed with resident physician Dr. Levi regarding the management plan. Patient was discharged from [facility] this afternoon, after laparoscopic total hysterectomy. Since 6 PM, patient still shortness of breath, which is getting worse gradually. Patient denies chest pain. Family found the patient turns blue and called EMS. Patient was found wheezing bilaterally in the emergency room, with elevated PCO2 level. Patient failed BiPAP treatment and finally was intubated. Chest x-ray shows possible pneumonia. We will treat patient as COPD exacerbation with antibiotic, steroid, and bronchodilator. We will treat patient as HCAP with Vanco and Zosyn. Follow-up blood culture results. Continue mechanical ventilation and consult pulmonology in a.m. Critical care time 40 minutes including history, physical exam, data review, and medical decision making.
[2018-02-24] MEDS: Ipratropium/Albuterol Neb 3 ML IH SCH ×4 (03:36→22:18)
--- NOTE | 2018-02-24 03:42 | Internal Med History&Physical ---
Date of Encounter: 02/24/18 Time of Encounter: 02:30 Internal Medicine - H&P: HPI Chief complaint: dyspnea Admitted From: Home History of present illness: Ms. Gunter is a 62 year old female with PMH COPD, CHF, and DM who presented to the emergency department by EMS for dyspnea. Per review of ED chart, EMS said she was cyanotic on arrival, RR 6, and SpO2 56% on room air. She was placed on CPAP by EMS and given 2 DuoNeb treatments, her SpO2 improved to 87%. Earlier in the day, she had returned home from [facility] where she had a laparoscopic total hysterectomy 2 days ago done by gynecology-oncology. Family reports she had no complaints of chest pain, but c/o not feeling well before she went to her bedroom to take a nap. Grandson at bedside states his brother checked in on patient 2 or 3 hours later and she was purple. The grandson says that she does use oxygen at home, but he thinks patient is just supposed to use it at night and when needed. In the emergency department the patient was switched from CPAP to BiPAP and she received triple DuoNebs and 125 mg Solu-Medrol. Work up in the ED showed WBC 15.1, BUN 28, Cr 1.44, troponin 0.13, BNP 340. The patient was intubated as her respiratory acidosis worsened and because she didnt seem to be blowing off adequate amount of CO2. Initial CXR showed right basilar atelectasis vs PNA. She will be admitted for further evaluation and care, as well as ventilator management. Past Med Surg Social Fam HX - Past Medical History Medical history: asthma, CHF, COPD, hypertension Additional medical history: chronic back pains Psychiatric history: anxiety - Past Surgical History Surgical History: cholecystectomy Additional surgical history: tubal. colonoscopy - Social History Smoking Status: Never smoker Smokeless Tobacco Status: No Alcohol use: occasionally Drug use: none - Family History Mother Living Status: Hx Family Cardiac Disorders: Yes Hx Family Respiratory Disorders: Yes Internal Medicine - H&P: Meds Gabapentin [Neurontin] 600 mg PO QAM #0 05/06/15 [History] Ergocalciferol (VITAMIN D2) [Vitamin D2 (50,000 UNIT)] 50,000 unit PO MO #0 [History] Atorvastatin [Lipitor] 40 mg PO HS #30 tablet 11/17/15 [Rx] Nitroglycerin 0.4 mg SL Q5MIN PRN #90 tab.subl 11/17/15 [Rx] Aspirin Enteric Coated [Aspirin EC] 325 mg PO DAILY #21 tablet.dr 04/30/16 [Rx] Albuterol Sulfate [Albuterol Inhaler] 2 puff IH Q6HR PRN 05/01/16 [History] Citalopram Hydrobromide [Celexa] 40 mg PO HS 05/01/16 [History] Gabapentin [Neurontin] 1,200 mg PO HS 05/01/16 [History] Ipratropium/Albuterol Neb [Duoneb] 3 ml IH Q6HR PRN 05/01/16 [History] Meloxicam [Mobic] 15 mg PO DAILY 05/01/16 [History] Montelukast [Singulair] 10 mg PO HS 05/01/16 [History] Simethicone [Bicarsim] 80 mg PO BID 05/01/16 [History] Ondansetron ODT [Zofran ODT] 4 mg SL Q6HR PRN #20 tab.rapdis 04/05/17 [Rx] ALPRAZolam [Xanax 1 MG Tablet] 1 mg PO BID PRN 02/19/18 [History] 3 Allergy/AdvReac Type Severity Reaction Status Date / Time acetaminophen [From Vicodin] Allergy Unknown Vomiting Verified 07/02/17 21:11 hydrocodone [From Vicodin] Allergy Unknown Vomiting Verified 07/02/17 21:11 ROS unobtainable: due to endotracheal tube All Systems PM: A 10-system review of systems was performed and is negative for pertinent findings except as documented above in the HPI. - Constitutional Vitals: Temp Pulse Resp BP Pulse Ox 97.4 F L 70 16 99/48 95 02/24/18 02:49 02/24/18 03:33 02/24/18 03:36 02/24/18 03:36 02/24/18 03:36 General appearance: Present: A&O X 0, morbidly obese, no acute distress (sedated ) - Head Head exam: Present: atraumatic, normocephalic - Eye Eye exam: Present: normal appearance, PERRL - Respiratory Respiratory exam: Present: decreased breath sounds, wheezes (right) Additional comments: mechanical ventilation - Cardiovascular Cardiovascular exam: Present: RRR, +S1, +S2. Absent: diastolic murmur, systolic murmur - GI/Abdominal GI/Abdominal exam: Present: normal bowel sounds, soft. Absent: distended, rigid , tenderness - Additional comments: Sebastian catheter - Extremities Exam Extremities exam: Present: normal inspection. Absent: cyanotic, mottling Additional comments: DP pulses 2+/4 bilaterally - Incison Incision: Present: clean and dry, intact - Neurological Exam Additional comments: Unable to assess fully because pt is intubated and sedated. Eyes open to voice, but doesn't follow commands. - Skin Skin exam: Present: dry, intact, warm Internal Med - H&P Results - Labs CBC & Chem 7: 02/23/18 22:36 02/23/18 22:56 - Assessment and plan (1) Acute respiratory failure with hypoxia and hypercarbia Current Visit: Yes Status: Acute Assessment and plan: Most likely d/t acute exacerbation of COPD VBG pO2 66 --> 82 and pCO2 83 --> 80 Morning ABG (2) Acute exacerbation of chronic obstructive airways disease Current Visit: Yes Status: Acute Assessment and plan: Known h/o COPD Right-sided wheezing on exam DuoNebs Q6H Solu-medrol 40 mg IVP Q6H Empiric IV abx Zosyn and Vanc (3) Elevated troponin I level Current Visit: Yes Status: Acute Assessment and plan: Initial troponin 0.13 EKG shows no acute ST elevation or depression 02/13/18 stress test negative for ischemia Trend troponins x 3 (4) CRYS (acute kidney injury) Current Visit: Yes Status: Acute Assessment and plan: Creatinine 1.44 Baseline Cr appears to be around 0.9 Gentle IVF Monitor with AM labs Avoid nephrotoxins and use renal dosing when able (5) Congestive heart failure Current Visit: Yes Status: Acute Assessment and plan: BNP 340 Doesn't appear fluid overloaded and no rales on exam Last echo 11/2015 LVEF 60%, LV moderate diastolic dysfunction Gentle administration IVF Qualifiers: Heart failure type: unspecified Heart failure chronicity: chronic Qualified Code(s): I50.9 - Heart failure, unspecified (6) DMII (diabetes mellitus, type 2) Current Visit: Yes Status: Chronic Assessment and plan: Low dose sliding scale insulin Accu-cheks Q6H Qualifiers: Diabetes mellitus care home insulin use: unspecified care home insulin use status Diabetes mellitus complication status: with unspecified complications Qualified Code(s): E11.8 - Type 2 diabetes mellitus with unspecified complications (7) Leukocytosis Current Visit: Yes Status: Acute Assessment and plan: WBC 15.1 Most likely reactive leukocytosis from recent surgery Expect some increase d/t steroids for COPD exacerbation Follow with AM labs Qualifiers: Leukocytosis type: unspecified Qualified Code(s): D72.829 - Elevated white blood cell count, unspecified (8) DVT prophylaxis Current Visit: No Status: Acute Assessment and plan: Heparin 5,000 units subcutaneous Q8H - Time Spent With Patient Total time spent is greater than 50% in coordination of care (as documented) at patient's floor/unit and/or counseling patient:
[2018-02-24] MEDS: Lacri-Lube 3.5 GM TUBE BOTH EYES SCH ×5 (04:32→22:22)
[2018-02-24 04:47] LABS: ABG Base Excess 5 mEq/L (-2 to 3); ABG HCO3 32 mEq/L (21-27); ABG Oxygen Saturation 92 % (95-98); ABG PCO2 56 mmHg (35-45); ABG PH 7.36 pH Units (7.32-7.45); ABG PO2 70 mmHg (85-104); ABG TCO2 33 mEq/L (20-26)
[2018-02-24 05:22] LABS: Troponin I 0.18 ng/mL (< 0.04)
[2018-02-24] MEDS: MethylPREDNISolone 40 MG/ML VIAL IVP SCH ×3 (06:17→18:18)
[2018-02-24] MEDS: *HR* Heparin 5,000 UNIT/ML VIAL SQ SCH ×3 (06:17→22:23)
[2018-02-24 06:30] LABS: Hematocrit 31.3 % (35.3-44.9); Immature Granulocytes % 0.4 % (0-4); Lymphocytes # 0.6 K/mcL (0.6-4.6); Lymphocytes % 7.4 %; Mean Corpuscular HGB Conc 31.6 g/dL (31.6-35.5); Mean Corpuscular Hemoglobin 30.4 pg (28.0-33.3); Mean Platelet Volume 10.6 fL (9.4-12.4); Monocytes # 0.2 K/mcL (0.0-1.3); Monocytes % 2.1 %; Neutrophils # 7.7 K/mcL (1.6-8.9); Platelet Count 204 K/mcL (140-400); Red Blood Count 3.26 M/mcL (3.82-4.97); Red Cell Distribution Width 14.5 % (11.5-14.5); Segmented Neutrophils % 90.1 %
[2018-02-24] MEDS: Insulin LISPRO 300 UNITS/3 ML VIAL SQ SCH ×3 (06:31→18:20)
[2018-02-24 06:32] LABS: Calcium 6.7 mg/dL (8.6-10.3); Potassium 3.9 mEq/L (3.5-5.1)
[2018-02-24 06:35] LABS: Hemoglobin 9.9 g/dL (11.5-15.4)
[2018-02-24 06:50] LABS: Platelet Estimate Normal (Normal)
[2018-02-24] MEDS ORDERED: Isovue-370 500 ML INFUS..BTL IV ONE (07:50)
--- NOTE | 2018-02-24 07:53 | Pulmonology Consult Note ---
<John Mckeon W - Last Filed: 02/24/18 10:01> Date of Encounter: 02/24/18 Medications and Allergies Gabapentin [Neurontin] 600 mg PO QAM #0 05/06/15 [History] Ergocalciferol (VITAMIN D2) [Vitamin D2 (50,000 UNIT)] 50,000 unit PO MO #0 [History] Atorvastatin [Lipitor] 40 mg PO HS #30 tablet 11/17/15 [Rx] Nitroglycerin 0.4 mg SL Q5MIN PRN #90 tab.subl 11/17/15 [Rx] Aspirin Enteric Coated [Aspirin EC] 325 mg PO DAILY #21 tablet.dr 04/30/16 [Rx] Albuterol Sulfate [Albuterol Inhaler] 2 puff IH Q6HR PRN 05/01/16 [History] Citalopram Hydrobromide [Celexa] 40 mg PO HS 05/01/16 [History] Gabapentin [Neurontin] 1,200 mg PO HS 05/01/16 [History] Ipratropium/Albuterol Neb [Duoneb] 3 ml IH Q6HR PRN 05/01/16 [History] Meloxicam [Mobic] 15 mg PO DAILY 05/01/16 [History] Montelukast [Singulair] 10 mg PO HS 05/01/16 [History] Simethicone [Bicarsim] 80 mg PO BID 05/01/16 [History] Ondansetron ODT [Zofran ODT] 4 mg SL Q6HR PRN #20 tab.rapdis 04/05/17 [Rx] ALPRAZolam [Xanax 1 MG Tablet] 1 mg PO BID PRN 02/19/18 [History] 3 Allergy/AdvReac Type Severity Reaction Status Date / Time acetaminophen [From Vicodin] Allergy Unknown Vomiting Verified 07/02/17 21:11 hydrocodone [From Vicodin] Allergy Unknown Vomiting Verified 07/02/17 21:11 All Systems: The remainder of the systems were reviewed and are negative Physical Examination Vital Signs: Vital Signs, Last 4 Hours Pulse Resp BP Pulse Ox 02/24/18 07:41 16 101/53 92 02/24/18 07:00 62 16 97/52 93 02/24/18 06:11 16 89/45 93 02/24/18 06:00 62 16 89/45 93 02/24/18 05:00 65 16 85/45 94 Ventilator Settings Ventilator Settings: Ventilator Settings, Last 8 Hours Ventilator Tidal Volume 450 Setting Ventilator Tidal Volume 450 Setting Ventilator Tidal Volume 450 Setting Ventilator Tidal Volume 450 Setting Ventilator Tidal Volume 450 Setting Ventilator Tidal Volume 450 Setting Ventilator Tidal Volume 450 Setting Ventilator Respiratory Rate 16 Setting Ventilator Respiratory Rate 16 Setting Ventilator Respiratory Rate 16 Setting Ventilator Respiratory Rate 16 Setting Ventilator Respiratory Rate 16 Setting Ventilator Respiratory Rate 16 Setting Ventilator Respiratory Rate 16 Setting Actual Respiratory Rate 16 Actual Respiratory Rate 16 Actual Respiratory Rate 16 Actual Respiratory Rate 16 Actual Respiratory Rate 16 Actual Respiratory Rate 16 Positive End Expiratory 5 Pressure Positive End Expiratory 5 Pressure Positive End Expiratory 5 Pressure Positive End Expiratory 5 Pressure Positive End Expiratory 5 Pressure Positive End Expiratory 5 Pressure Positive End Expiratory 5 Pressure Peak Inspiratory Airway 30 Pressure Peak Inspiratory Airway 30 Pressure Peak Inspiratory Airway 31 Pressure Peak Inspiratory Airway 30 Pressure Peak Inspiratory Airway 30 Pressure Peak Inspiratory Airway 33 Pressure Results - Laboratory Findings CBC and BMP: 02/24/18 00:45 02/24/18 04:45 ABG ABG pH 7.36 pH Units (7.32-7.45) 02/24/18 04:44 ABG pCO2 56 mmHg (35-45) H 02/24/18 04:44 ABG pO2 70 mmHg (85-104) L 02/24/18 04:44 ABG O2 Saturation 92 % (95-98) L 02/24/18 04:44 Abnormal lab findings: Abnormal lab results RBC 3.26 M/mcL (3.82-4.97) L 02/24/18 00:45 Hgb 9.9 g/dL (11.5-15.4) L D 02/24/18 00:45 Hct 31.3 % (35.3-44.9) L 02/24/18 00:45 ABG pCO2 56 mmHg (35-45) H 02/24/18 04:44 ABG pO2 70 mmHg (85-104) L 02/24/18 04:44 ABG HCO3 32 mEq/L (21-27) H 02/24/18 04:44 ABG Total CO2 33 mEq/L (20-26) H 02/24/18 04:44 ABG O2 Saturation 92 % (95-98) L 02/24/18 04:44 ABG Base Excess 5 mEq/L (-2 to 3) H 02/24/18 04:44 VBG pH 7.21 pH Units (7.32-7.42) L 02/24/18 00:54 VBG pCO2 80 mmHg (41-51) H* 02/24/18 00:54 VBG pO2 82 mmHg (25-50) H 02/24/18 00:54 VBG HCO3 32 mEq/L (21-27) H 02/24/18 00:54 Chloride 108 mEq/L (98-107) H 02/24/18 04:45 BUN 27 mg/dL (8-23) H 02/24/18 04:45 Est GFR ( Amer) 58 (> 60) L 02/24/18 04:45 Est GFR (Non-Af Amer) 47 (> 60) L 02/24/18 04:45 Glucose 212 mg/dL (70-105) H 02/24/18 04:45 POC Glucose 215 mg/dL (70-99) H 02/24/18 02:52 Calcium 6.7 mg/dL (8.6-10.3) L 02/24/18 04:45 Troponin I 0.18 ng/mL (< 0.04) H* 02/24/18 04:45 B-Natriuretic Peptide 340 pg/mL (Less than 100) H 02/23/18 22:36 - Clinical Findings Intake & Output: Intake & Output 02/23/18 02/24/18 02/24/18 23:59 07:59 15:59 Intake Total 1640 / 1650 Output Total 270 / 370 Balance 1370 / 1280 Weight 133.5 kg Consult Discharge Plan - Plan Referrals: Jagdeep Walters MD [Primary Care Provider] - - Attending Attestation I examined this patient and my medical decision-making was reviewed with the Resident Physician. I agree with the documented findings, disposition and treatment plan as described except to the extent set forth below. We independently had [id number] contact with the patient Patient seen and examined at bedside Labs, radiology, chart personally reviewed. Management was reviewed during multidisciplinary critical care rounds. NUCLEAR PHYSICS PROFESSOR: Patient able to open eyes and follow commands on minimal sedation for vent comfort. Goal Schneider 2-3. No acute focal deficits Pulm: Hypoxic hypercapnic respiratory failure likely secondary to pneumonia complicated by COPD exacerbation acceptable oxygenation and ventilation today on current vent settings. Consider spontaneous breathing trial later in the day depending on clinical course. CTA chest to rule out PE pending (patient has presumed surgery for gynecological malignancy, recent hospitalization, tachycardic,) continue bronchodilators and IV steroids Cards: Elevated BNP suspected heart failure with preserved ejection fraction versus less likely but possibly right heart strain; troponin was modestly elevated needed trend I suspect this is demand ischemia echocardiogram pending GI: GI prophylaxis given Nutrition: Nothing by mouth for now Renal: Mild CRYS improved UOP Monitored, Cont to Trend sCr and monitor Electrolytes. ID: suspected pneumonia with risk factors for hospital associated organisms. Blood and sputum cultures pending along with urine antigens to evaluate for strep and legionella Heme/Onc: recent hysterectomy for presumed gynecological malignancy. Continue DVT prophylaxis she has a significant drop in H&H overnight which may be dilutional effect. CTA abdomen also pending to rule out GI hemorrhage given recent surgery Endo: Glucose Monitored Integ/MSK: Skin Care per routine ICU Nursing Protocol to prevent ulcers. Lines: All lines examined without evidence of infection : Dispo: ICU for vent management CODE: Full <Phil Mukherjee - Last Filed: 02/24/18 10:34> Date of Encounter: 02/24/18 Time of Encounter: 07:53 Assessment and Plan (1) Acute respiratory failure with hypoxia and hypercarbia Current Visit: Yes Status: Acute Systems based plan: - Patient seen and examined. - Labs, radiology, chart personally reviewed. NUCLEAR PHYSICS PROFESSOR: Continue Precedex to keep LIN at 3 Pulmonary: Adequate ventilation and oxygenation, continue current vent settings (AC-VC/450/16/5/40%), P/F - 160, continue vancomycin and Zosyn for possible pneumonia, sputum cultures, as well as strep pneumo and Legionella pending, getting CTA chest today to rule out PE Cardiovascular: Troponins trending up, but hemodynamically stable and not requiring pressure support. We will get a stat echo today and avoid volume overload and may consider diuresis GI: Nutrition per dietary and GI prophylaxis per routine, also getting a CT abdomen and pelvis with IV contrast to evaluate for postoperative abscess and possible cause of anemia Heme: DVT prophylaxis per routine ID: Continue antibiotics and plan to de-escalation Renal: Trend Endorcine: Monitor blood glucose Lines: all lines checked and no evidence of infections Skin: skin care to prevent pressure ulcers per nursing routine care Will renew restraints today Overall prognosis is poor This is the primary cause of her admission to the ICU and is multifactorial including COPD, CHF, possible pneumonia 1. Continue ventilator support 2. Vent bundle ordered 3. Continue vancomycin and Zosyn with plan to de-escalate 4. Continue duo nebs and Solu-Medrol 5. CTA chest to rule out PE and right heart strain as she is high risk using well's criteria (Score 7) placing her in High-risk group and d-dimer would be of less sensitivity 6. Echo to evaluate EF 7. CT abdomen and pelvis with IV contrast to evaluate for possible postop abscess 8. Avoiding overhydration due to congestive heart failure component 9. We will obtain records from [facility] with her recent surgery and any possible pathology (2) DMII (diabetes mellitus, type 2) Current Visit: Yes Status: Chronic 1. 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 Improved, we will continue to trend (4) Anemia Current Visit: Yes Status: Acute 1. Unclear etiology but did have a drop from 12.2 to 9.9 today. Could be delusional, but we will continue to monitor as she did have a recent surgery. Her hemodynamics have been stable, so I do not suspect any active bleeding and she has not had any melena or hematochezia, so we will continue to monitor Qualifiers: Anemia type: unspecified type Qualified Code(s): D64.9 - Anemia, unspecified (5) Congestive heart failure Current Visit: Yes Status: Acute 1. Has a history of diastolic CHF, her BNP was 340 on admission and this was normal on the of this month. Certainly could be contributing to her respiratory failure, but is not likely to be her primary cause. She also has an elevated troponin as discussed previously. We will diurese as tolerated. Qualifiers: Heart failure type: unspecified Heart failure chronicity: acute on chronic Qualified Code(s): I50.9 - Heart failure, unspecified (6) COPD (chronic obstructive pulmonary disease) Current Visit: Yes Status: Acute 1. Acute on chronic and it certainly contributing to her acute respiratory failure 2. Continue scheduled DuoNeb nebs and Solu-Medrol, agree with current dosing Qualifiers: COPD type: unspecified COPD Qualified Code(s): J44.9 - Chronic obstructive pulmonary disease, unspecified (7) DVT prophylaxis Current Visit: Yes Status: Acute 1. Subcutaneous heparin 2. Continue GI prophylaxis 3. We will renew restraints (8) Sepsis Current Visit: Yes Status: Acute 1. Suspected to be from right lower lobe pneumonia. Patient is on vancomycin and Zosyn for possible healthcare acquired pneumonia as she just had a surgery 2 days ago at [facility]. She was borderline febrile and tachycardic upon arrival. 2. Continue vancomycin and Zosyn 3. Blood and sputum cultures pending 4. Legionella and strep pneumo antigens pending 5. We will avoid aggressive rehydration due to the patient's history of congestive heart failure and need for continuous ventilator support 6. Ordering stat echo today as well as a CTA chest to rule out PE and a CT of the abdomen and pelvis to evaluate for possible abscess postop Qualifiers: Sepsis type: sepsis due to unspecified organism Qualified Code(s): A41.9 - Sepsis, unspecified organism (9) Elevated troponin I level Current Visit: Yes Status: Acute 1. Likely related to her sepsis and was trending up with max of 0.18 2. Getting a CTA chest to rule out PE and right heart strain History of Present Illness Consult date: 02/24/18 Requesting physician: Carson Barnard Reason for consult: other (Respiratory failure) Chief complaint: Respiratory failure History of present illness: 62-year-old female who presented to the emergency department after EMS was called to her house for difficulty breathing and cyanosis. According to the record. Patient was only breathing about 6 times per minute. Patient was awake and alert at that point and stated that she just was not hooked up to her oxygen and that her air conditioner was not on. Apparently, her sats were 56% on room air, so EMS gave her breathing treatments and placed her on CPAP. Her sats had improved to 87%. She was also able to state that she was just recently at [facility] for a hysterectomy, 2 days prior to this. She was denying any chest pain or abdominal pain and was only complaining of shortness of breath at that time. Past Med Surg Social Fam HX - Past Medical History Medical history: asthma, CHF, COPD, hypertension Additional medical history: chronic back pains Psychiatric history: anxiety - Past Surgical History Surgical History: cholecystectomy Additional surgical history: tubal. colonoscopy - Social History Smoking Status: Never smoker Smokeless Tobacco Status: No Alcohol use: occasionally Drug use: none - Family History Mother Living Status: Hx Family Cardiac Disorders: Yes Hx Family Respiratory Disorders: Yes ROS unobtainable: due to endotracheal tube All Systems: The remainder of the systems were reviewed and are negative Physical Examination Vital Signs: Vital Signs, Last 4 Hours Pulse Resp BP Pulse Ox 02/24/18 07:41 16 101/53 92 02/24/18 06:11 16 89/45 93 02/24/18 06:00 62 16 89/45 93 02/24/18 05:00 65 16 85/45 94 02/24/18 04:00 66 16 94/56 100 General appearance: no acute distress, alert (Alert to voice) Eyes: nonicteric ENT: oropharynx dry Effort: normal (vent) Inspection: normal Auscultation: right: rhonchi Cardiovascular: regular rate and rhythm Gastrointestinal: normoactive bowel sounds, non-distended, other (Postop laparoscopic incisions are clean and intact, no surrounding erythema, abdomen is soft, obese, nondistended, no guarding or rebound, nonrigid) Integumentary: normal Extremities: no cyanosis, no edema (Is obese, but there is no pitting edema) other (Patient is adequately sedated and does respond to verbal stimulation and follows commands with no focal deficits) Ventilator Settings Ventilator Settings: Ventilator Settings, Last 8 Hours Ventilator Tidal Volume 450 Setting Ventilator Tidal Volume 450 Setting Ventilator Tidal Volume 450 Setting Ventilator Tidal Volume 450 Setting Ventilator Tidal Volume 450 Setting Ventilator Tidal Volume 450 Setting Ventilator Respiratory Rate 16 Setting Ventilator Respiratory Rate 16 Setting Ventilator Respiratory Rate 16 Setting Ventilator Respiratory Rate 16 Setting Ventilator Respiratory Rate 16 Setting Ventilator Respiratory Rate 16 Setting Actual Respiratory Rate 16 Actual Respiratory Rate 16 Actual Respiratory Rate 16 Actual Respiratory Rate 16 Actual Respiratory Rate 16 Positive End Expiratory 5 Pressure Positive End Expiratory 5 Pressure Positive End Expiratory 5 Pressure Positive End Expiratory 5 Pressure Positive End Expiratory 5 Pressure Positive End Expiratory 5 Pressure Peak Inspiratory Airway 30 Pressure Peak Inspiratory Airway 31 Pressure Peak Inspiratory Airway 30 Pressure Peak Inspiratory Airway 30 Pressure Peak Inspiratory Airway 33 Pressure Results - Laboratory Findings CBC and BMP: 02/24/18 00:45 02/24/18 04:45 ABG ABG pH 7.36 pH Units (7.32-7.45) 02/24/18 04:44 ABG pCO2 56 mmHg (35-45) H 02/24/18 04:44 ABG pO2 70 mmHg (85-104) L 02/24/18 04:44 ABG O2 Saturation 92 % (95-98) L 02/24/18 04:44 Abnormal lab findings: Abnormal lab results RBC 3.26 M/mcL (3.82-4.97) L 02/24/18 00:45 Hgb 9.9 g/dL (11.5-15.4) L D 02/24/18 00:45 Hct 31.3 % (35.3-44.9) L 02/24/18 00:45 ABG pCO2 56 mmHg (35-45) H 02/24/18 04:44 ABG pO2 70 mmHg (85-104) L 02/24/18 04:44 ABG HCO3 32 mEq/L (21-27) H 02/24/18 04:44 ABG Total CO2 33 mEq/L (20-26) H 02/24/18 04:44 ABG O2 Saturation 92 % (95-98) L 02/24/18 04:44 ABG Base Excess 5 mEq/L (-2 to 3) H 02/24/18 04:44 VBG pH 7.21 pH Units (7.32-7.42) L 02/24/18 00:54 VBG pCO2 80 mmHg (41-51) H* 02/24/18 00:54 VBG pO2 82 mmHg (25-50) H 02/24/18 00:54 VBG HCO3 32 mEq/L (21-27) H 02/24/18 00:54 Chloride 108 mEq/L (98-107) H 02/24/18 04:45 BUN 27 mg/dL (8-23) H 02/24/18 04:45 Est GFR ( Amer) 58 (> 60) L 02/24/18 04:45 Est GFR (Non-Af Amer) 47 (> 60) L 02/24/18 04:45 Glucose 212 mg/dL (70-105) H 02/24/18 04:45 POC Glucose 215 mg/dL (70-99) H 02/24/18 02:52 Calcium 6.7 mg/dL (8.6-10.3) L 02/24/18 04:45 Troponin I 0.18 ng/mL (< 0.04) H* 02/24/18 04:45 B-Natriuretic Peptide 340 pg/mL (Less than 100) H 02/23/18 22:36 - Clinical Findings Intake & Output: Intake & Output 02/23/18 02/23/18 02/24/18 15:59 23:59 07:59 Intake Total 1640 / 1650 Output Total 270 / 370 Balance 1370 / 1280 Weight 133.5 kg
[2018-02-24] MEDS: Pantoprazole 40 MG VIAL IVP SCH (08:07)
[2018-02-24] MEDS: Chlorhexidine Rinse 15 ML MOUTHWASH MM SCH ×2 (08:07→22:23)
[2018-02-24] MEDS ORDERED: Furosemide 40 MG/4 ML VIAL IVP ONE (11:50)
[2018-02-24] MEDS ORDERED: Furosemide 40 MG/4 ML VIAL ONE (11:54)
[2018-02-24] MEDS: Piperacillin/Tazobactam 3.375 GM in 0.9 % Sodium Chloride Mini Bag 100 ML IVPB SCH ×2 (11:55→22:22)
[2018-02-24] MEDS: Acetaminophen 325 MG TABLET PO PRN (16:05)
[2018-02-24] MEDS ORDERED: Gabapentin 100 MG CAPSULE PO ONE (20:28)
[2018-02-24] MEDS ORDERED: ALPRAZolam 0.5 MG TABLET PO ONE (20:28)
[2018-02-25] MEDS: Lacri-Lube 3.5 GM TUBE BOTH EYES SCH ×7 (00:13→23:17)
[2018-02-25] MEDS: MethylPREDNISolone 40 MG/ML VIAL IVP SCH ×5 (00:22→23:24)
[2018-02-25] MEDS: Insulin LISPRO 300 UNITS/3 ML VIAL SQ SCH ×4 (00:23→15:53)
[2018-02-25] MEDS: Ipratropium/Albuterol Neb 3 ML IH SCH ×4 (03:38→21:58)
[2018-02-25] MEDS: Piperacillin/Tazobactam 3.375 GM in 0.9 % Sodium Chloride Mini Bag 100 ML IVPB SCH ×3 (04:03→19:34)
[2018-02-25 05:15] LABS: Basophils % 0.1 %; Hematocrit 31.1 % (35.3-44.9); Hemoglobin 9.9 g/dL (11.5-15.4); Immature Granulocytes % 0.5 % (0-4); Lymphocytes # 0.9 K/mcL (0.6-4.6); Lymphocytes % 10.6 %; Mean Corpuscular HGB Conc 31.8 g/dL (31.6-35.5); Mean Corpuscular Hemoglobin 30.4 pg (28.0-33.3); Mean Corpuscular Volume 95.4 fL (83.0-100.0); Mean Platelet Volume 10.5 fL (9.4-12.4); Monocytes # 0.3 K/mcL (0.0-1.3); Monocytes % 3.4 %; Neutrophils # 7.3 K/mcL (1.6-8.9); Platelet Count 196 K/mcL (140-400); Red Blood Count 3.26 M/mcL (3.82-4.97); Segmented Neutrophils % 85.4 %
[2018-02-25 05:35] LABS: Calcium 8.2 mg/dL (8.6-10.3)
[2018-02-25] MEDS: *HR* Heparin 5,000 UNIT/ML VIAL SQ SCH ×3 (06:07→20:57)
[2018-02-25] MEDS: Dexmedetomidine HCl 400 MCG/100 ML MLS IVC SCH ×2 (07:51→22:24)
[2018-02-25] MEDS: Chlorhexidine Rinse 15 ML MOUTHWASH MM SCH ×2 (07:51→20:37)
[2018-02-25] MEDS ORDERED: Furosemide 20 MG/2 ML VIAL IVP ONE (08:23)
[2018-02-25] MEDS: Pantoprazole 40 MG VIAL IVP SCH (09:09)
--- NOTE | 2018-02-25 09:21 | Pulmonology Progress Note ---
Date of Encounter: 02/25/18 Time of Encounter: 07:30 Assessment and Plan (1) Acute and chronic respiratory failure Current Visit: Yes Status: Acute Patient has acute on chronic hypoxic and hypercarbic respiratory failure secondary to Right sided pneumonia and CHF . Patient needs to use her home BIPAP Will do overnight BIPAP qualification on the based on chronic hypercapnic respiratory failure . Patient had issues with BIPAP use at home because of increased pressure intolerance will try lower pressure of 12/6 tonight. Qualifiers: Respiratory failure complication: hypoxia and hypercapnia Qualified Code(s) : J96.21 - Acute and chronic respiratory failure with hypoxia; J96.22 - Acute and chronic respiratory failure with hypercapnia (2) Acute exacerbation of chronic obstructive airways disease Current Visit: Yes Status: Acute To continue Bronchodilators and Steroids. (3) HCAP (healthcare-associated pneumonia) Current Visit: Yes Status: Acute Concern for HAP to continue Vanc and Zosyn nothing growing in the cultures. Will descalate antibiotics soon. (4) Morbid obesity Current Visit: No Status: Chronic Patient has significant Morbid obesity will need weight loss in the intermediate card tender management of her comorbid disorders . Patient is not motivated about weight lose for now (5) Congestive heart failure Current Visit: Yes Status: Acute Patient some diastolic heart failure will gently diurese her as tolerated . Qualifiers: Heart failure type: diastolic Heart failure chronicity: acute on chronic Qualified Code(s): I50.33 - Acute on chronic diastolic (congestive) heart failure Subjective Principal diagnosis: Pneumonia with CHF Interval history: 62 year old female morbidly obese developed acute on chronic hypoxic and hypercarbic respiratory failure due to Right lower pneumonia and CHF due to diastolic dysfunction . Patient was extubated yesterday she is doing well she is eating and drinking overnight . Patient had a excision of pelvic mass with laprascopic hysterectomy with BSO the pathology is pending . Objective PUL Vital signs: Last Vital Signs Temp 96.7 F L 02/25/18 07:29 Pulse 56 02/25/18 07:00 Resp 26 02/25/18 07:00 BP 130/66 02/25/18 07:00 Pulse Ox 99 02/25/18 07:00 Auscultation: bilateral: diminished breath sounds (basilar diminshed breadth sounds), other (some bibasilar scattered crackles ) Cardiovascular: other (sinus bradycardia with sinus arrhythmia ) Gastrointestinal: soft, other (obese distended abdomen ) Results - Laboratory Findings CBC and BMP: 02/25/18 04:40 02/25/18 04:40 ABG ABG pH 7.36 pH Units (7.32-7.45) 02/24/18 04:44 ABG pCO2 56 mmHg (35-45) H 02/24/18 04:44 ABG pO2 70 mmHg (85-104) L 02/24/18 04:44 ABG O2 Saturation 92 % (95-98) L 02/24/18 04:44 Abnormal lab findings: Abnormal lab results RBC 3.26 M/mcL (3.82-4.97) L 02/25/18 04:40 Hgb 9.9 g/dL (11.5-15.4) L 02/25/18 04:40 Hct 31.1 % (35.3-44.9) L 02/25/18 04:40 ABG pCO2 56 mmHg (35-45) H 02/24/18 04:44 ABG pO2 70 mmHg (85-104) L 02/24/18 04:44 ABG HCO3 32 mEq/L (21-27) H 02/24/18 04:44 ABG Total CO2 33 mEq/L (20-26) H 02/24/18 04:44 ABG O2 Saturation 92 % (95-98) L 02/24/18 04:44 ABG Base Excess 5 mEq/L (-2 to 3) H 02/24/18 04:44 VBG pH 7.21 pH Units (7.32-7.42) L 02/24/18 00:54 VBG pCO2 80 mmHg (41-51) H* 02/24/18 00:54 VBG pO2 82 mmHg (25-50) H 02/24/18 00:54 VBG HCO3 32 mEq/L (21-27) H 02/24/18 00:54 Carbon Dioxide 30 mEq/L (23-29) H 02/25/18 04:40 BUN 36 mg/dL (8-23) H 02/25/18 04:40 Creatinine 1.23 mg/dL (0.60-1.20) H 02/25/18 04:40 Est GFR ( Amer) 54 (> 60) L 02/25/18 04:40 Est GFR (Non-Af Amer) 44 (> 60) L 02/25/18 04:40 BUN/Creatinine Ratio 29 (6-26) H 02/25/18 04:40 Glucose 190 mg/dL (70-105) H 02/25/18 04:40 POC Glucose 232 mg/dL (70-99) H 02/24/18 23:44 Calcium 8.2 mg/dL (8.6-10.3) L 02/25/18 04:40 Troponin I 0.05 ng/mL (< 0.04) H* 02/24/18 22:30 B-Natriuretic Peptide 340 pg/mL (Less than 100) H 02/23/18 22:36 - Microbiology Findings Microbiology Findings: Microbiology, Last 48 Hours 02/24/18 11:00 Legionella Antigen - Final Urine,Catheterized Streptococcus pneumoniae Antigen (M - Final - Clinical Findings Intake & Output: Intake & Output 02/24/18 02/25/18 02/25/18 23:59 07:59 15:59 Intake Total 337 / 337 600 / 600 360 / 360 Output Total 1825 / 1825 500 / 500 Balance -1488 / -1488 100 / 100 360 / 360 Weight 133.5 kg Consult Discharge Plan - Plan Referrals: Jagdeep Walters MD [Primary Care Provider] -
[2018-02-25] MEDS ORDERED: Sennosides/Docusate Sodium TABLET PO PRN (09:33)
[2018-02-25] MEDS ORDERED: Insulin LISPRO 300 UNITS/3 ML VIAL SQ SCH ×2 (12:00→21:00)
[2018-02-25] MEDS: Acetaminophen 325 MG TABLET PO PRN (20:40)
[2018-02-25] MEDS ORDERED: Gabapentin 300 MG CAPSULE PO ONE (20:44)
[2018-02-25] MEDS ORDERED: ALPRAZolam 0.5 MG TABLET PO ONE (20:45)
[2018-02-26] MEDS: Ipratropium/Albuterol Neb 3 ML IH SCH ×4 (03:25→21:53)
[2018-02-26] MEDS: Lacri-Lube 3.5 GM TUBE BOTH EYES SCH ×2 (03:41→07:37)
[2018-02-26] MEDS: Piperacillin/Tazobactam 3.375 GM in 0.9 % Sodium Chloride Mini Bag 100 ML IVPB SCH ×3 (04:04→20:52)
[2018-02-26 04:57] LABS: Basophils % 0.1 %; Hematocrit 32.6 % (35.3-44.9); Hemoglobin 10.5 g/dL (11.5-15.4); Immature Granulocytes % 1.4 % (0-4); Lymphocytes % 9.9 %; Mean Corpuscular HGB Conc 32.2 g/dL (31.6-35.5); Mean Corpuscular Hemoglobin 30.6 pg (28.0-33.3); Mean Platelet Volume 10.7 fL (9.4-12.4); Monocytes # 0.3 K/mcL (0.0-1.3); Monocytes % 3.4 %; Neutrophils # 8.3 K/mcL (1.6-8.9); Platelet Count 203 K/mcL (140-400); Red Blood Count 3.43 M/mcL (3.82-4.97); Segmented Neutrophils % 85.2 %
[2018-02-26 05:00] LABS: BUN/Creatinine Ratio 36 (6-26); Blood Urea Nitrogen 38 mg/dL (8-23); Carbon Dioxide 28 mEq/L (23-29); Chloride 103 mEq/L (98-107); Glucose 229 mg/dL (70-105); Osmolality,Calculated 296 (280-300); Potassium 4.8 mEq/L (3.5-5.1); Sodium 135 mEq/L (136-145); eGFR For African Americans > 60 (> 60); eGFR For Non-African Americans 52 (> 60)
[2018-02-26] MEDS: MethylPREDNISolone 40 MG/ML VIAL IVP SCH ×3 (05:19→20:49)
[2018-02-26] MEDS: *HR* Heparin 5,000 UNIT/ML VIAL SQ SCH ×3 (05:19→20:49)
[2018-02-26] MEDS: Chlorhexidine Rinse 15 ML MOUTHWASH MM SCH (07:37)
[2018-02-26] MEDS: Insulin LISPRO 300 UNITS/3 ML VIAL SQ SCH ×3 (08:12→16:45)
--- NOTE | 2018-02-26 09:16 | Pulmonology Progress Note ---
<Phil Mukherjee - Last Filed: 02/26/18 15:22> Date of Encounter: 02/26/18 Time of Encounter: 09:16 Assessment and Plan (1) Acute respiratory failure with hypoxia and hypercarbia Current Visit: Yes Status: Acute TXF out of ICU today 1. largely resolved, continue to monitor, keep on home O2 settings 2. patient will need overnight BiPAP qualification and will need to stay in hospital overnight for this but can likely be discharged home tomorrow. 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 insulin use status Diabetes mellitus complication status: with unspecified complications Qualified Code(s): E11.8 - Type 2 diabetes mellitus with unspecified complications (3) CRYS (acute kidney injury) Current Visit: Yes Status: Chronic - monitor (4) Anemia Current Visit: Yes Status: Acute - monitor Qualifiers: Anemia type: unspecified type Qualified Code(s): D64.9 - Anemia, unspecified (5) Congestive heart failure Current Visit: Yes Status: Acute - continue lasix 20-40mg BID Qualifiers: Heart failure type: diastolic Heart failure chronicity: acute on chronic Qualified Code(s): I50.33 - Acute on chronic diastolic (congestive) heart failure (6) COPD (chronic obstructive pulmonary disease) Current Visit: Yes Status: Acute - continue duonebs and solu-medrol, may transition to prednisone on floor Qualifiers: COPD type: unspecified COPD Qualified Code(s): J44.9 - Chronic obstructive pulmonary disease, unspecified (7) DVT prophylaxis Current Visit: Yes Status: Acute - SQH (8) Sepsis Current Visit: Yes Status: Acute - resolved Qualifiers: Sepsis type: sepsis due to unspecified organism Qualified Code(s): A41.9 - Sepsis, unspecified organism (9) Elevated troponin I level Current Visit: Yes Status: Acute - trended down, likely related to demand ischemia from sepsis Subjective Principal diagnosis: Pneumonia with CHF Interval history: patient feeling better, off vent/BiPAP, states she feels back to baseline and would like to go home. She will need overnight BiPAP qualification as this was likely the reason she had resp failure in the first place. Objective PUL Vital signs: Last Vital Signs Temp 97.7 F 02/26/18 07:56 Pulse 65 02/26/18 08:00 Resp 20 02/26/18 08:00 BP 142/76 02/26/18 08:00 Pulse Ox 96 02/26/18 08:00 General appearance: no acute distress Eyes: nonicteric ENT: oropharynx moist Effort: normal Auscultation: bilateral: diminished breath sounds Cardiovascular: regular rate and rhythm Gastrointestinal: normoactive bowel sounds, non-distended Integumentary: normal Extremities: no cyanosis, no edema, no clubbing mood appropriate, affect normal Results - Laboratory Findings CBC and BMP: 02/26/18 04:32 02/26/18 04:32 ABG ABG pH 7.36 pH Units (7.32-7.45) 02/24/18 04:44 ABG pCO2 56 mmHg (35-45) H 02/24/18 04:44 ABG pO2 70 mmHg (85-104) L 02/24/18 04:44 ABG O2 Saturation 92 % (95-98) L 02/24/18 04:44 Abnormal lab findings: Abnormal lab results RBC 3.43 M/mcL (3.82-4.97) L 02/26/18 04:32 Hgb 10.5 g/dL (11.5-15.4) L 02/26/18 04:32 Hct 32.6 % (35.3-44.9) L 02/26/18 04:32 ABG pCO2 56 mmHg (35-45) H 02/24/18 04:44 ABG pO2 70 mmHg (85-104) L 02/24/18 04:44 ABG HCO3 32 mEq/L (21-27) H 02/24/18 04:44 ABG Total CO2 33 mEq/L (20-26) H 02/24/18 04:44 ABG O2 Saturation 92 % (95-98) L 02/24/18 04:44 ABG Base Excess 5 mEq/L (-2 to 3) H 02/24/18 04:44 VBG pH 7.21 pH Units (7.32-7.42) L 02/24/18 00:54 VBG pCO2 80 mmHg (41-51) H* 02/24/18 00:54 VBG pO2 82 mmHg (25-50) H 02/24/18 00:54 VBG HCO3 32 mEq/L (21-27) H 02/24/18 00:54 Sodium 135 mEq/L (136-145) L 02/26/18 04:32 BUN 38 mg/dL (8-23) H 02/26/18 04:32 Est GFR (Non-Af Amer) 52 (> 60) L 02/26/18 04:32 BUN/Creatinine Ratio 36 (6-26) H 02/26/18 04:32 Glucose 229 mg/dL (70-105) H 02/26/18 04:32 POC Glucose 233 mg/dL (70-99) H 02/25/18 19:34 Calcium 8.0 mg/dL (8.6-10.3) L 02/26/18 04:32 Troponin I 0.05 ng/mL (< 0.04) H* 02/24/18 22:30 B-Natriuretic Peptide 340 pg/mL (Less than 100) H 02/23/18 22:36 - Microbiology Findings Microbiology Findings: Microbiology, Last 48 Hours 02/24/18 11:00 Legionella Antigen - Final Urine,Catheterized Streptococcus pneumoniae Antigen (M - Final - Clinical Findings Intake & Output: Intake & Output 02/25/18 02/26/18 02/26/18 23:59 07:59 15:59 Intake Total 100 / 100 Output Total 525 / 525 550 / 550 Balance -425 / -425 -550 / -550 Weight 132.4 kg Consult Discharge Plan - Plan Referrals: Jagdeep Walters MD [Primary Care Provider] - <Hari Benito S - Last Filed: 02/26/18 20:50> Date of Encounter: 02/26/18 Assessment and Plan (1) Acute and chronic respiratory failure Current Visit: Yes Status: Acute Qualifiers: Respiratory failure complication: hypoxia and hypercapnia Qualified Code(s) : J96.21 - Acute and chronic respiratory failure with hypoxia; J96.22 - Acute and chronic respiratory failure with hypercapnia (2) Acute exacerbation of chronic obstructive airways disease Current Visit: Yes Status: Acute (3) HCAP (healthcare-associated pneumonia) Current Visit: Yes Status: Acute (4) Morbid obesity Current Visit: No Status: Chronic (5) Congestive heart failure Current Visit: Yes Status: Acute Qualifiers: Heart failure type: diastolic Heart failure chronicity: acute on chronic Qualified Code(s): I50.33 - Acute on chronic diastolic (congestive) heart failure Objective PUL Vital signs: Last Vital Signs Temp 97.8 F 02/26/18 20:15 Pulse 83 02/26/18 20:15 Resp 16 02/26/18 20:15 BP 172/97 02/26/18 20:15 Pulse Ox 92 02/26/18 20:15 Results - Laboratory Findings CBC and BMP: 02/26/18 04:32 02/26/18 04:32 ABG ABG pH 7.36 pH Units (7.32-7.45) 02/24/18 04:44 ABG pCO2 56 mmHg (35-45) H 02/24/18 04:44 ABG pO2 70 mmHg (85-104) L 02/24/18 04:44 ABG O2 Saturation 92 % (95-98) L 02/24/18 04:44 Abnormal lab findings: Abnormal lab results RBC 3.43 M/mcL (3.82-4.97) L 02/26/18 04:32 Hgb 10.5 g/dL (11.5-15.4) L 02/26/18 04:32 Hct 32.6 % (35.3-44.9) L 02/26/18 04:32 ABG pCO2 56 mmHg (35-45) H 02/24/18 04:44 ABG pO2 70 mmHg (85-104) L 02/24/18 04:44 ABG HCO3 32 mEq/L (21-27) H 02/24/18 04:44 ABG Total CO2 33 mEq/L (20-26) H 02/24/18 04:44 ABG O2 Saturation 92 % (95-98) L 02/24/18 04:44 ABG Base Excess 5 mEq/L (-2 to 3) H 02/24/18 04:44 VBG pH 7.21 pH Units (7.32-7.42) L 02/24/18 00:54 VBG pCO2 80 mmHg (41-51) H* 02/24/18 00:54 VBG pO2 82 mmHg (25-50) H 02/24/18 00:54 VBG HCO3 32 mEq/L (21-27) H 02/24/18 00:54 Sodium 135 mEq/L (136-145) L 02/26/18 04:32 BUN 38 mg/dL (8-23) H 02/26/18 04:32 Est GFR (Non-Af Amer) 52 (> 60) L 02/26/18 04:32 BUN/Creatinine Ratio 36 (6-26) H 02/26/18 04:32 Glucose 229 mg/dL (70-105) H 02/26/18 04:32 POC Glucose 186 mg/dL (70-99) H 02/26/18 11:27 Calcium 8.0 mg/dL (8.6-10.3) L 02/26/18 04:32 Troponin I 0.05 ng/mL (< 0.04) H* 02/24/18 22:30 B-Natriuretic Peptide 340 pg/mL (Less than 100) H 02/23/18 22:36 - Clinical Findings Intake & Output: Intake & Output 02/26/18 02/26/18 02/26/18 07:59 15:59 23:59 Intake Total 120 / 120 360 / 360 Output Total 550 / 550 500 / 500 200 / 200 Balance -550 / -550 -380 / -380 160 / 160 Weight 132.4 kg 132.9 kg - Attending Attestation I saw and evaluated this patient and my medical decision-making was reviewed with the Resident Physician. I agree with the documented findings, disposition and treatment plan as described except to the extent set forth below. We independently had [id number] contact with the patient I spent of Critical Care time with this patient. It involved decision making of high complexity to assess, manipulate, and support vital organ system failure and/or to prevent further life threatening deterioration of the patient's condition. The time involved in the performance of separately reportable procedures was not counted toward critical care time. Patient seen and examined at bedside Labs, radiology, chart personally reviewed. Management was reviewed during multidisciplinary critical care rounds. COMPONENT PREP OPERATOR: Patient is conscious oriented x 3 sitting in the bed no acute issues Pulm: Patient acute on chronic hypoxic and hypercarbic respiratory failure secondary to COPD , JOSE/OHS complicated by pneumonia and Pulmonary edema . Patient oxygenation and ventilation adequate . Patient lost her CPAP machine at home patient will benefit from nightly BIPAP therapy . Patient will need overnight BIPAP qualification Cards: Acute on chronic diastolic dysfunction to continue diuresis as tolerated FEN-GI: Diet according to Nutrition Renal: Labs output and reviewed ID:Descalated antibiotics no evidence of infection.. Heme/Onc: Labs and output reviewed Endo: Glucose Monitored Integ/MSK: Skin Care per routine ICU Nursing Protocol to prevent ulcers. Lines: All lines examined without evidence of infection : Dispo: Can be transferred to Medical telemetry CODE: Full Code
[2018-02-26] MEDS ORDERED: Dextrose Gel 15 GM/37.5 ML TUBE PO PRN ×2 (12:38)
[2018-02-26] MEDS ORDERED: Acetaminophen 325 MG TABLET PO PRN (12:38)
[2018-02-26] MEDS ORDERED: D5% in Water 1,000 ML IVC PRN (12:38)
[2018-02-26] MEDS ORDERED: *HR* Dextrose 50 % in Water (Syg) 50 ML SYRINGE IVP PRN (12:38)
[2018-02-26] MEDS ORDERED: Torsemide 20 MG TABLET PO PRN (12:38)
[2018-02-26] MEDS ORDERED: Sennosides/Docusate Sodium TABLET PO PRN (12:38)
[2018-02-26] MEDS ORDERED: Ipratropium/Albuterol Neb 3 ML IH PRN (12:38)
[2018-02-26] MEDS ORDERED: Ondansetron ODT 4 MG TAB.RAPDIS SL PRN (12:38)
[2018-02-26] MEDS: Aspirin Enteric Coated 325 MG Tablet PO SCH (13:37)
--- NOTE | 2018-02-26 16:32 | Electrocardiograph Report ---
[address] [place], [place] [address] Test Date: 2018-02-23 Pat Name: Nancy Gunter Department: 103 Room: 2NE16 Gender: [employer] Front Desk Attendant: VOLODYMYR : 1955 Requested By: Ana Lilia Benjamin Order Number: [id number] Reading MD: June Cruz Measurements Intervals [place] Rate: 121 P: 46 MI: 154 QRS: 34 QRSD: 94 T: 5 QT: 299 QTc: 371 Interpretive Statements SINUS TACHYCARDIA ABNORMAL RHYTHM ECG Electronically Signed On 02-26-2018 16:30:51 EDT by June Cruz
[2018-02-26] MEDS ORDERED: Aminoglycoside Consult 1 EACH MC ONE (16:52)
[2018-02-26] MEDS: Simethicone 80 MG TAB.CHEW PO SCH (20:51)
[2018-02-26] MEDS ORDERED: Insulin LISPRO 300 UNITS/3 ML VIAL SQ SCH (21:00)
[2018-02-26] MEDS ORDERED: Gabapentin 300 MG CAPSULE PO ONE (21:31)
[2018-02-26] MEDS ORDERED: *HR* LORazepam 1 MG TABLET PO PRN (21:32)
[2018-02-27] MEDS: MethylPREDNISolone 40 MG/ML VIAL IVP SCH ×3 (01:29→16:03)
[2018-02-27] MEDS: Ipratropium/Albuterol Neb 3 ML IH SCH ×3 (04:16→15:23)
[2018-02-27] MEDS: *HR* Heparin 5,000 UNIT/ML VIAL SQ SCH ×2 (06:12→16:04)
[2018-02-27] MEDS: Piperacillin/Tazobactam 3.375 GM in 0.9 % Sodium Chloride Mini Bag 100 ML IVPB SCH ×2 (06:13→16:04)
[2018-02-27] MEDS: Insulin LISPRO 300 UNITS/3 ML VIAL SQ SCH ×2 (08:19→11:26)
[2018-02-27] MEDS: Aspirin Enteric Coated 325 MG Tablet PO SCH (08:19)
[2018-02-27] MEDS: Simethicone 80 MG TAB.CHEW PO SCH (08:19)
--- NOTE | 2018-02-27 12:30 | Discharge Summary ---
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 status Diabetes mellitus complication status: with unspecified complications Qualified Code(s): E11.8 - Type 2 diabetes mellitus with unspecified complications (2) CRYS (acute kidney injury) Priority: Secondary Status: Resolved (3) Anemia Priority: Secondary Status: Acute Qualifiers: Anemia type: unspecified type Qualified Code(s): D64.9 - Anemia, unspecified (4) Congestive heart failure Priority: Secondary Status: Chronic Qualifiers: Heart failure type: diastolic Heart failure chronicity: acute on chronic Qualified Code(s): I50.33 - Acute on chronic diastolic (congestive) heart failure (5) COPD (chronic obstructive pulmonary disease) Priority: Secondary Status: Chronic Qualifiers: COPD type: unspecified COPD Qualified Code(s): J44.9 - Chronic obstructive pulmonary disease, unspecified (6) Sepsis Priority: Primary Status: Acute Qualifiers: Sepsis type: sepsis due to unspecified organism Qualified Code(s): A41.9 - Sepsis, unspecified organism (7) Elevated troponin I level Priority: Secondary Status: Acute (8) Acute respiratory failure with hypoxia and hypercarbia Priority: Secondary Status: Acute Hospital course: Ms. Gunter is a 62 year old female who was admitted for dyspnea. Patient was cyanotic on arrival. She was placed on CPAP with oxygen saturation 97%. Patient was transferred to [facility] and received Solu-Medrol and DuoNeb's. Patient had elevated white blood cell count, elevated troponin and elevated BNP. Patient was in intubated due to hypercapnia. Initial chest x-ray showed pneumonia. Patient was given vancomycin and Zosyn. Patient was extubated and has done well since. Patient completed bipap qualification overnight and did not qualify. Patient currently wears 2 L oxygen nasal cannula at night. Patient also had acute kidney injury on admission but this is now resolved. Patient also had elevated troponin levels. This is most likely due to demand ischemia from sepsis. These levels have now trended down. Patient is back at baseline for respiratory status. - Time Spent with Patient Total time spent providing and/or coordinating discharge services: - Discharge Medications Prescriptions: GuaiFENesin ER [Mucinex] 600 mg PO BID #60 tbbp.12hr Levofloxacin [Levaquin] 750 mg PO DAILY #4 tablet Metoprolol [Lopressor] 25 mg PO BID #60 tablet PredniSONE [Deltasone] 10 mg PO DAILY #24 tablet Home Medications: Gabapentin [Neurontin] 600 mg PO QAM #0 05/06/15 [History] Atorvastatin [Lipitor] 40 mg PO HS #30 tablet 11/17/15 [Rx] Nitroglycerin 0.4 mg SL Q5MIN PRN #90 tab.subl 11/17/15 [Rx] Aspirin Enteric Coated [Aspirin EC] 325 mg PO DAILY #21 tablet. 04/30/16 [Rx] Albuterol Sulfate [Albuterol Inhaler] 2 puff IH Q6HR PRN 05/01/16 [History] Citalopram Hydrobromide [Celexa] 40 mg PO HS 05/01/16 [History] Gabapentin [Neurontin] 1,200 mg PO HS 05/01/16 [History] Ipratropium/Albuterol Neb [Duoneb] 3 ml IH Q6HR PRN 05/01/16 [History] Meloxicam [Mobic] 15 mg PO DAILY 05/01/16 [History] Montelukast [Singulair] 10 mg PO HS 05/01/16 [History] Simethicone [Bicarsim] 80 mg PO BID 05/01/16 [History] Ondansetron ODT [Zofran ODT] 4 mg SL Q6HR PRN #20 tab.rapdis 04/05/17 [Rx] ALPRAZolam [Xanax 1 MG Tablet] 1 mg PO BID PRN 02/19/18 [History] Ergocalciferol (VITAMIN D2) [Vitamin D2] 50,000 unit PO MO 02/24/18 [History] Lansoprazole [Prevacid] 30 mg PO BID 02/24/18 [History] Oxycodone HCl [Oxaydo] 5 mg PO DAILY 02/24/18 [History] Torsemide [Demadex] 10 mg PO DAILY PRN 02/24/18 [History] GuaiFENesin ER [Mucinex] 600 mg PO BID #60 tbbp.12hr 02/27/18 [Rx] Levofloxacin [Levaquin] 750 mg PO DAILY #4 tablet 02/27/18 [Rx] Metoprolol [Lopressor] 25 mg PO BID #60 tablet 02/27/18 [Rx] PredniSONE [Deltasone] 10 mg PO DAILY #24 tablet 02/27/18 [Rx] Allergies/Adverse Reactions: 3 Allergy/AdvReac Type Severity Reaction Status Date / Time acetaminophen [From Vicodin] Allergy Unknown Vomiting Verified 07/02/17 21:11 hydrocodone [From Vicodin] Allergy Unknown Vomiting Verified 07/02/17 21:11 Date of admission: 02/24/18 02:08 Primary care physician: Jagdeep Walters MD Consults: 02/24/18 04:52 Consult to Critical Care [CONS] Routine Consulting Provider: [facility] [place] Reason for Consult: COPD exacerbation, intubated Call Completed: Yes Discharging clinician: Rosalba Mukherjee Anticipated date of discharge: 02/27/18 - Constitutional Vitals: Temp Pulse Resp BP Pulse Ox 98.0 F 68 18 202/98 94 02/27/18 10:59 02/27/18 10:59 02/27/18 11:06 02/27/18 10:59 02/27/18 11:37 General appearance: Present: A&O X 3, morbidly obese, no acute distress (sedated ) - Head Head exam: Present: atraumatic, normocephalic - Respiratory Respiratory exam: Present: decreased breath sounds. Absent: accessory muscle use, rales, rhonchi, wheezes - Cardiovascular Cardiovascular exam: Present: RRR, +S1, +S2. Absent: diastolic murmur, gallop, rubs, systolic murmur - GI/Abdominal GI/Abdominal exam: Present: normal bowel sounds, soft, no peritoneal signs. Absent: distended, tenderness - Neurological Exam Neurological exam: Present: alert, oriented X3, no focal deficits - Patient Status Disposition: Home, Self-Care Condition: Good Overall status at discharge: patient is back to baseline - Discharge Instructions Follow Up With: Jagdeep Walters MD [Primary Care Provider] - (appt,requested ) Additional Instructions: Please continue all of your home medications. Please start taking the following medications; prednisone taper, metoprolol for your high blood pressure , Levaquin antibiotic for your pneumonia, Mucinex for your mucus build-up and cough. Please follow-up with your primary care physician within one week. Please return for any new or worsening symptoms. - Diet and Activity Activity: increase activity as tolerated Diet: advance to your usual diet <Javier Mckinnon - Last Filed: 02/27/18 12:56> Orders not resulted at time of discharge: Pending orders 02/24/18 08:19 Culture,Sputum with Gram Stain [RM] Stat Date of Encounter: 02/27/18 Hospital course: Ms. Gunter is a 62 year old female - Time Spent with Patient Total time spent providing and/or coordinating discharge services: Date of admission: 02/24/18 02:08 Primary care physician: Jagdeep Walters MD Consults: 02/24/18 04:52 Consult to Critical Care [CONS] Routine Consulting Provider: [facility] [place] Reason for Consult: COPD exacerbation, intubated Call Completed: Yes - Constitutional Vitals: Temp Pulse Resp BP Pulse Ox 98.0 F 68 18 184/89 94 02/27/18 10:59 02/27/18 10:59 02/27/18 11:06 02/27/18 12:31 02/27/18 11:37 - Attending Attestation I performed an independent interview and examine this patient. I agree with the findings, assessment, and plan of Dr. Mukherjee, internal medicine resident. Patient is doing well and is stable for discharge. She will continue with Levaquin 750 mg by mouth daily to complete a 7 day course of antibiotics for suspected community acquired pneumonia. She will also continue on prednisone taper for COPD exacerbation. Equally candidate. Patient is doing well. Follow -up with primary care provider next week. 32 minutes spent on discharge and coordination of care. Exam: No acute distress Lungs show diminished breath sounds at the bases no wheezing Heart Regular rate and rhythm Abdomen nontender Extremities no edema
[2018-02-27 12:31] VITALS: BP 184/89
== END 2018-02-27 16:53 | disposition home or self-care (01) | DRG 871 ==
LOC: EMEROO 22:28 → ICNU 02-24 02:08 → 2NENU 02-26 09:59
PROVIDERS: ADMIT Internal Medicine Nephrology; ATTEND Internal Medicine Nephrology

== ENCOUNTER 2018-07-21 23:40 | Observation (INO) ==
[2018-07-22] MEDS ORDERED: Ipratropium/Albuterol Neb 3 ML IH ONE (00:01)
--- NOTE | 2018-07-22 00:01 | Emergency Department Note ---
Disposition Clinical Impression: Chronic obstructive pulmonary disease with (acute) exacerbation Disposition: Admitted As Inpatient Condition: Fair Referrals: Jagdeep Walters MD [Primary Care Provider] - Forms: ED Satisfaction Letter Time of Disposition: 01:05 SOB HPI - General Chief Complaint: ED Shortness of Breath/Dyspnea Stated Complaint: GEETA, wheezing Time Seen by Provider: 07/21/18 23:48 Source: patient Limitations: no limitations Nursing Notes Reviewed: Yes Vital Signs Reviewed: Yes - History of Present Illness 62-year-old female presents from home for evaluation of shortness of breath. Onset this morning upon awakening and with no improvement during the day. History of COPD on 2 L nasal cannula baseline continuous home as well as home albuterol nebulizers. Her symptoms are not improved with 4 albuterol home nebulizers taken back to back. She does have dyspnea at rest which is worsened with light exertion. She does not have a change in cough. She has never smoked however was around significant secondhand smoke. PMH: CHF, COPD, hypertension ROS: Positive: As above Negative: Fever, chills, nausea, vomiting, chest pain, palpitations, unusual back pain, abdominal pain, changes in bowel or bladder habits, productive cough - Related Data Home Medications Medication Instructions Recorded Confirmed Gabapentin [Neurontin] 600 mg PO QAM #0 05/06/15 02/24/18 Albuterol Sulfate [Albuterol 2 puff IH Q6HR PRN 05/01/16 02/24/18 Inhaler] Citalopram Hydrobromide [Celexa] 40 mg PO HS 05/01/16 02/24/18 Gabapentin [Neurontin] 1,200 mg PO HS 05/01/16 02/24/18 Ipratropium/Albuterol Neb [Duoneb] 3 ml IH Q6HR PRN 05/01/16 02/24/18 Meloxicam [Mobic] 15 mg PO DAILY 05/01/16 02/24/18 Montelukast [Singulair] 10 mg PO HS 05/01/16 02/24/18 Simethicone [Bicarsim] 80 mg PO BID 05/01/16 02/24/18 ALPRAZolam [Xanax 1 MG Tablet] 1 mg PO BID PRN 02/19/18 02/24/18 Ergocalciferol (VITAMIN D2) 50,000 unit PO MO 02/24/18 02/24/18 [Vitamin D2] Lansoprazole [Prevacid] 30 mg PO BID 02/24/18 02/24/18 Oxycodone HCl [Oxaydo] 5 mg PO DAILY 02/24/18 02/24/18 Torsemide [Demadex] 10 mg PO DAILY PRN 02/24/18 02/24/18 Previous Rx's Medication Instructions Recorded Atorvastatin [Lipitor] 40 mg PO HS #30 tablet 11/17/15 Nitroglycerin 0.4 mg SL Q5MIN PRN #90 tab.subl 11/17/15 Aspirin Enteric Coated [Aspirin EC] 325 mg PO DAILY #21 tablet.dr 04/30/16 Ondansetron ODT [Zofran ODT] 4 mg SL Q6HR PRN #20 tab.rapdis 04/05/17 GuaiFENesin ER [Mucinex] 600 mg PO BID #60 tbbp.12hr 02/27/18 Levofloxacin [Levaquin] 750 mg PO DAILY #4 tablet 02/27/18 Metoprolol [Lopressor] 25 mg PO BID #60 tablet 02/27/18 PredniSONE [Deltasone] 10 mg PO DAILY #24 tablet 02/27/18 Oxycodone HCl/Acetaminophen 1 each PO Q6HR PRN 2 Days #6 tablet 03/21/18 [Percocet 5-325 mg Tablet] Sulfamethoxazole/Trimeth DS 1 each PO BID #7 tablet 03/21/18 [Bactrim DS] Sulfamethoxazole/Trimeth DS 1 each PO BID 10 Days tablet 04/04/18 [Bactrim DS] cephALEXin [Keflex] 500 mg PO QID 10 Days capsule 04/04/18 predniSONE [Prednisone] 50 mg PO DAILY #4 tablet 05/02/18 Allergies Allergy/AdvReac Type Severity Reaction Status Date / Time No Known Allergies Allergy Verified 04/03/18 20:40 All systems ED: reviewed and negative except as stated. 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 Head: atraumatic, normocephalic Eye: normal appearance, PERRL, EOMI, no scleral icterus, no conjunctival injection ENT: mucous membranes moist, normal external ear exam Neck: normal inspection, trachea midline, full ROM Chest: normal inspection, symmetric chest rise Respiratory: Prolonged expiratory phase. Good respiratory effort. Bilateral breath sounds are diminished with poor air entry. No wheeze, crackles, or rhonchi. Cardiovascular: Regular rate and rhythm. No clicks, rubs, gallops, or murmors. Normal heart sounds. Abdomen: Bowel sounds present normoactive x-4 quadrants. Abdomen is soft, nondistended, and nontender. No guarding or rebound. Musculoskeletal: Spontaneously moving all extremities. Skin: warm, dry, intact. Neuro: Alert and oriented x4. Sensation light touch intact. Psych: Patient's affect is appropriate for situation. - General Limitations: no limitations General appearance: alert, in no apparent distress Course Course Narrative: Concern the patient does have mild restaurant distress. Though there is no wheeze on auscultation concerned this may be due to poor air entry. Will provide DuoNeb's and IV solumedrol. Cardiac and pulmonary workup. EKG dated 07/22/2018 at 00:07 interpreted as sinus rhythm with rate of 64. VT 94, curious or 2, QTC 454. Normal intervals. Normal axis. No previous EKG for comparison. After triple dose of DuoNeb's, patient does have some scattered wheeze and for her airways are starting to open. Respirations are 18 and she is not hypoxic on her baseline 2 L. Concerned as she continues to prefer sitting upright on the edge of the bed, her home albuterol nebulizers did not improve her symptoms nor lateral oxygen. I discussed the patient discharge home versus admission. She states this is aware she has ever felt with her COPD and she prefers admission. She will need continued restaurant support here in the hospital prior discharge home. I discussed the patient with having hospitalist, Dr. Nelson. He agrees to accept the patient for his aspiration of COPD. Chest X-Ray 07/22/18 23:53 IMPRESSION: No evidence of acute cardiopulmonary disease. D/ / Josiah Tam MD / Josiah Tam MD Interpreting Provider: Josiah Tam MD Vital Signs Temperature 98.2 F 07/21/18 23:43 Pulse Rate 56 07/21/18 23:43 Respiratory Rate 24 07/21/18 23:43 Blood Pressure 166/74 07/21/18 23:43 O2 Sat by Pulse Oximetry 97 07/21/18 23:43 Temperature 98.2 F 07/21/18 23:45 Pulse Rate 56 07/21/18 23:45 Respiratory Rate 16 07/22/18 00:11 Blood Pressure 166/74 07/21/18 23:45 O2 Sat by Pulse Oximetry 100 07/22/18 00:11 Oxygen Delivery Oxygen Delivery Room Air Shortness of Breath/Dyspnea - Lab Data Result diagrams: 07/22/18 00:14 Lab Results 07/22/18 07/22/18 07/22/18 Range/Units 00:14 00:14 00:14 WBC 9.5 (4.3-11.1) K/mcL RBC 4.43 (3.82-4.97) M/mcL Hgb 12.6 (11.5-15.4) g/dL Hct 40.1 (35.3-44.9) % MCV 90.5 (83.0-100.0) fL MCH 28.4 (28.0-33.3) pg MCHC 31.4 L (31.6-35.5) g/dL RDW 13.5 (11.5-14.5) % Plt Count 271 (140-400) K/mcL MPV 10.0 (9.4-12.4) fL Immature Gran % 0.2 (0-4) % Seg Neutrophils % 59.7 % Lymphocytes % 32.4 % Monocytes % 5.2 % Eosinophils % 2.3 % Basophils % 0.2 % Neutrophils # 5.7 (1.6-8.9) K/mcL Lymphocytes # 3.1 (0.6-4.6) K/mcL Monocytes # 0.5 (0.0-1.3) K/mcL Eosinophils # 0.2 (0.0-0.6) K/mcL Basophils # 0.0 (0.0-0.2) K/mcL Troponin I 0.03 (< 0.04) ng/mL B-Natriuretic Peptide 162 H (Less than 100) pg/mL Attestation Statement - Attestation Attestation: I examined this patient and my medical decision-making was reviewed with the Resident Physician. I agree with the documented findings, disposition and treatment plan as described except to the extent set forth below. Findings consistent with dyspnea. We will obtain chest x-ray, proBNP, troponin, EKG is nondiagnostic. I suspect mild exacerbation of COPD. There is no overt wheezing at this time. Minimal we will provide antibiotics, steroids, bronchodilator medication on a more scheduled schedule. She will be discharge pending negative results of her heart failure testing.
[2018-07-22] MEDS ORDERED: methylPREDNISolone 125 MG/2 ML VIAL IVP ONE (00:02)
[2018-07-22 00:26] LABS: Basophils % 0.2 %; Eosinophils # 0.2 K/mcL (0.0-0.6); Eosinophils % 2.3 %; Hematocrit 40.1 % (35.3-44.9); Hemoglobin 12.6 g/dL (11.5-15.4); Immature Granulocytes % 0.2 % (0-4); Lymphocytes # 3.1 K/mcL (0.6-4.6); Lymphocytes % 32.4 %; Mean Corpuscular HGB Conc 31.4 g/dL (31.6-35.5); Mean Corpuscular Hemoglobin 28.4 pg (28.0-33.3); Mean Corpuscular Volume 90.5 fL (83.0-100.0); Monocytes # 0.5 K/mcL (0.0-1.3); Monocytes % 5.2 %; Neutrophils # 5.7 K/mcL (1.6-8.9); Platelet Count 271 K/mcL (140-400); Red Blood Count 4.43 M/mcL (3.82-4.97); Red Cell Distribution Width 13.5 % (11.5-14.5); Segmented Neutrophils % 59.7 %
[2018-07-22] MEDS ORDERED: Acetaminophen 325 MG TABLET PO PRN (01:30)
[2018-07-22] MEDS ORDERED: Ondansetron 4 MG/2 ML VIAL IVP PRN (01:30)
[2018-07-22] MEDS ORDERED: Naloxone 0.4 MG/ML INJ IVP PRN (01:30)
[2018-07-22] MEDS ORDERED: ALPRAZolam 1 MG TABLET PO PRN (01:32)
--- NOTE | 2018-07-22 01:38 | Internal Med History&Physical ---
Date of Encounter: 07/22/18 Time of Encounter: 01:35 Internal Medicine - H&P: HPI Chief complaint: Shortness of breath Admitted From: Emergency Dept Plans for Post Hospital Care: Home History of present illness: Ms. Gunter is a 62 year old female with past medical history of COPD on chronic 2 L of nasal cannula oxygen, asthma, diastolic heart failure, anxiety, who presented to us from home to be evaluated for shortness of breath. The patient shortness of breath started suddenly this morning and persisted during today. She tried about 4 treatments of albuterol nebulizer at home without any improvement. The patient says she does have dyspnea on exertion at baseline but this is worsened. She does have a history of COPD from secondhand smoke and throughout her life as well as asthma. In the ED when she presented she was not hypoxic but she was significantly tachypneic and was having significant conversational dyspnea. She was given multiple rounds of nebulizer as well as IV Solu-Medrol. She did not require more oxygen than her baseline. She was afebrile. CBC was unremarkable. Chest x-ray with no acute findings. The patient herself denies any fever, chills, nausea, vomiting, headache, blurry vis ion, chest pain, abdominal pain, diarrhea, constipation, urinary symptoms, or neurological symptoms. Past Med Surg Social Fam HX - Past Medical History Medical history: asthma, CHF, COPD, hypertension Additional medical history: chronic back pains Psychiatric history: anxiety - Past Surgical History Surgical History: cholecystectomy Additional surgical history: tubal. colonoscopy - Social History Smoking Status: Never smoker Smokeless Tobacco Status: No Alcohol use: rarely Drug use: none - Family History Mother Living Status: Hx Family Cardiac Disorders: Yes Hx Family Respiratory Disorders: Yes Internal Medicine - H&P: Meds Nitroglycerin 0.4 mg SL Q5MIN PRN #90 tab.subl 11/17/15 [Rx] Aspirin Enteric Coated [Aspirin EC] 325 mg PO DAILY #21 tablet. 04/30/16 [Rx] Albuterol Sulfate [Albuterol Inhaler] 2 puff IH Q6HR PRN 05/01/16 [History] Gabapentin [Neurontin] 600 mg PO BID 05/01/16 [History] Ipratropium/Albuterol Neb [Duoneb] 3 ml IH Q6HR PRN 05/01/16 [History] Montelukast [Singulair] 10 mg PO HS 05/01/16 [History] Simethicone [Bicarsim] 80 mg PO BID 05/01/16 [History] ALPRAZolam [Xanax 1 MG Tablet] 1 mg PO BID PRN 02/19/18 [History] Ergocalciferol (VITAMIN D2) [Vitamin D2] 50,000 unit PO MO 02/24/18 [History] Allergy/AdvReac Type Severity Reaction Status Date / Time No Known Allergies Allergy Verified 04/03/18 20:40 All Systems PM: A 10-system review of systems was performed and is negative for pertinent findings except as documented above in the HPI. Review of systems: All systems reviewed are negative except for as mentioned above - Constitutional Vitals: Temp Pulse Resp BP Pulse Ox 98.2 F 60 18 129/79 100 07/21/18 23:45 07/22/18 01:06 07/22/18 01:06 07/22/18 01:06 07/22/18 01:06 Exam: GEN: NAD HEENT: AT, NC, No cyanosis, oral mucosa is moist, No JVD Lymphatics: No lymphadenoapthy Eyes: Extrocular muscles intact, anicteric CVS:RRR. S1, S2, No m/r/g RESP: Significantly diminished but no wheezes. ABD: Soft, NT, ND, +BS EXT: No edema, No rashes, 2+ DP NEURO: Nonfocal, CN II-XII intact, No focal motor or sensory deficits Psych: Cooperative, Not anxious or depressed Internal Med - H&P Results - Labs CBC & Chem 7: 07/22/18 00:14 Labs: Short CBC 07/22/18 Range/Units 00:14 WBC 9.5 (4.3-11.1) K/mcL Hgb 12.6 (11.5-15.4) g/dL Hct 40.1 (35.3-44.9) % Plt Count 271 (140-400) K/mcL Neutrophils # 5.7 (1.6-8.9) K/mcL Cardiac Enzymes 07/22/18 Range/Units 00:14 Troponin I 0.03 (< 0.04) ng/mL - Impressions ITS Impressions Chest X-Ray 11/19/18 23:53 IMPRESSION: No evidence of acute cardiopulmonary disease. D/ / Josiah Tam MD / Josiah Tam MD Interpreting Provider: Josiah Tam MD - Assessment and plan (1) Chronic obstructive pulmonary disease with (acute) exacerbation Current Visit: Yes Status: Acute Assessment and plan: Prescription possibly be also has been exacerbation. We will continue the patient on IV Solu-Medrol every 8 hours 60 mg. We will schedule nebs. Continue O2 support. No need for antibiotics at the moment. (2) Congestive heart failure Current Visit: No Status: Chronic Assessment and plan: Not in exacerbation. Qualifiers: Heart failure type: diastolic Heart failure chronicity: acute on chronic Qualified Code(s): I50.33 - Acute on chronic diastolic (congestive) heart failure (3) Anxiety Current Visit: No Status: Chronic Assessment and plan: Continue home meds (4) DVT prophylaxis Current Visit: No Status: Acute Assessment and plan: Heparin subcutaneous (5) Morbid obesity Current Visit: No Status: Chronic - Time Spent With Patient Total time spent is greater than 50% in coordination of care (as documented) at patient's floor/unit and/or counseling patient:
[2018-07-22] MEDS: Ipratropium/Albuterol Neb 3 ML IH SCH ×6 (02:29→23:43)
[2018-07-22] MEDS: *HR* Heparin 5,000 UNIT/ML VIAL SQ SCH ×3 (05:01→21:16)
[2018-07-22 05:35] LABS: Basophils % 0.2 %; Eosinophils % 0.2 %; Hemoglobin 12.8 g/dL (11.5-15.4); Immature Granulocytes % 0.3 % (0-4); Lymphocytes # 0.7 K/mcL (0.6-4.6); Lymphocytes % 9.9 %; Mean Corpuscular Hemoglobin 28.8 pg (28.0-33.3); Mean Corpuscular Volume 89.9 fL (83.0-100.0); Mean Platelet Volume 10.3 fL (9.4-12.4); Monocytes # 0.1 K/mcL (0.0-1.3); Monocytes % 1.1 %; Neutrophils # 5.9 K/mcL (1.6-8.9); Platelet Count 237 K/mcL (140-400); Red Blood Count 4.45 M/mcL (3.82-4.97); Red Cell Distribution Width 13.6 % (11.5-14.5); Segmented Neutrophils % 88.3 %
[2018-07-22 05:57] LABS: BUN/Creatinine Ratio 19 (6-26); Blood Urea Nitrogen 21 mg/dL (8-23); Calcium 9.2 mg/dL (8.6-10.3); Carbon Dioxide 27 mEq/L (23-29); Chloride 101 mEq/L (98-107); Glucose 171 mg/dL (70-105); Osmolality,Calculated 291 (280-300); Sodium 137 mEq/L (136-145); eGFR For Non-African Americans 50 (> 60)
[2018-07-22] MEDS: Simethicone 80 MG TAB.CHEW PO SCH ×2 (07:57→21:16)
[2018-07-22] MEDS: methylPREDNISolone 125 MG/2 ML VIAL IVP SCH ×2 (07:57→15:19)
[2018-07-22] MEDS: Gabapentin 300 MG CAPSULE PO SCH ×2 (07:57→21:16)
[2018-07-22] MEDS: Aspirin Enteric Coated 325 MG Tablet PO SCH (07:57)
--- NOTE | 2018-07-22 15:58 | Internal Med Progress Note ---
Hospitalist Progress Note - Encounter Date of Encounter: 07/22/18 Time of Encounter: 15:57 - Subjective Interval History: Patient was seen and examined at bedside patient states she is feeling a lot better today almost back to baseline still having moderate dyspnea on exertion - Exam Vitals: Temp Pulse Resp BP Pulse Ox 97.9 F 94 16 123/86 93 07/22/18 11:03 07/22/18 11:03 07/22/18 11:03 07/22/18 11:03 07/22/18 11:03 Exam: Gen: Alert, awake, Oriented to time,place and person Chest: Diminished breath sounds B/L, moderate wheezing, No crackles, No rales Heart: S1S2+ RRR No murmurs Abd: Soft, NT, BS +, No organomegaly Ext: No edema, pulses are palpable, No calf tenderness Neuro : Benign findings Skin: No rash. - Assessment and Plan (1) Chronic obstructive pulmonary disease with (acute) exacerbation Current Visit: Yes Status: Acute Assessment and Plan: Does have significant COPD exacerbation improving started tapering steroids reviewed chest x-ray did not show any infiltrates cont Duoneb and O2 Does use 2 lit O2 at bed time at home - Chronic nocturnal hypoxia (2) Anxiety Current Visit: No Status: Chronic Assessment and Plan: Continue home meds (3) Congestive heart failure Current Visit: No Status: Chronic Assessment and Plan: Not in exacerbation Echo from 02/18 showed preserved LVEF with mild left ventricular diastolic dysfunction resumed all home medications (4) DVT prophylaxis Current Visit: No Status: Acute Assessment and Plan: Heparin subcutaneous (5) Morbid obesity Current Visit: No Status: Chronic Assessment and Plan: Counseled to lose weight - Time Spent with Patient Total time spent is greater than 50% in coordination of care (as documented) at patient's floor/unit and/or counseling patient: Internal Medicine: Result - Labs CBC & Chem 7: 07/22/18 05:14 07/22/18 05:14 Labs: Short CBC 07/22/18 07/22/18 Range/Units 00:14 05:14 WBC 9.5 6.7 (4.3-11.1) K/mcL Hgb 12.6 12.8 (11.5-15.4) g/dL Hct 40.1 40.0 (35.3-44.9) % Plt Count 271 237 (140-400) K/mcL Neutrophils # 5.7 5.9 (1.6-8.9) K/mcL BMP 07/22/18 05:14 Sodium 137 Potassium 4.0 Chloride 101 Carbon Dioxide 27 BUN 21 Creatinine 1.10 Glucose 171 H Calcium 9.2 Cardiac Enzymes 07/22/18 Range/Units 00:14 Troponin I 0.03 (< 0.04) ng/mL - Impressions Impressions Chest X-Ray 07/22/18 23:53 IMPRESSION: No evidence of acute cardiopulmonary disease. D/ / Josiah Tam MD / Josiah Tam MD Interpreting Provider: Josiah Tam MD Consult Discharge Plan - Plan Referrals: Jagdeep Walters MD [Primary Care Provider] - (3) Congestive heart failure Qualifiers: Heart failure type: diastolic Heart failure chronicity: acute on chronic Qualified Code(s): I50.33 - Acute on chronic diastolic (congestive) heart failure
[2018-07-22] MEDS: MethylPREDNISolone 40 MG/ML VIAL IVP SCH (17:15)
[2018-07-22] MEDS: Budesonide/Formoterol 80/4.5 MDI IH SCH (20:41)
[2018-07-23] MEDS: Ipratropium/Albuterol Neb 3 ML IH SCH ×3 (03:45→11:31)
[2018-07-23] MEDS: *HR* Heparin 5,000 UNIT/ML VIAL SQ SCH (05:58)
[2018-07-23] MEDS: MethylPREDNISolone 40 MG/ML VIAL IVP SCH (05:58)
[2018-07-23 06:43] VITALS: BP 137/75
[2018-07-23] MEDS: Budesonide/Formoterol 80/4.5 MDI IH SCH (07:50)
[2018-07-23] MEDS: Aspirin Enteric Coated 325 MG Tablet PO SCH (09:29)
[2018-07-23] MEDS: Simethicone 80 MG TAB.CHEW PO SCH (09:29)
[2018-07-23] MEDS: Gabapentin 300 MG CAPSULE PO SCH (09:29)
--- NOTE | 2018-07-23 09:35 | Discharge Summary ---
- NOTES TO OUTPATIENT PROVIDER Notes to Outpatient Provider: Follow up with PCP in one week Date of Encounter: 07/23/18 Time of Encounter: 09:32 - Discharge Diagnosis (1) Chronic obstructive pulmonary disease with (acute) exacerbation Priority: Primary Status: Acute (2) Anxiety Priority: Secondary Status: Chronic (3) Congestive heart failure Priority: Secondary Status: Chronic Qualifiers: Heart failure type: diastolic Heart failure chronicity: acute on chronic Qualified Code(s): I50.33 - Acute on chronic diastolic (congestive) heart failure (4) DVT prophylaxis Priority: Secondary Status: Acute (5) Morbid obesity Priority: Secondary Status: Chronic Hospital course: Ms. Gunter is a 62 year old female with past medical history of COPD on chronic 2 L of nasal cannula oxygen at bed time, asthma, diastolic heart failure, anxiety, who presented to ER from home to be evaluated for shortness of breath. In the ED when she presented she was not hypoxic but she was significantly tachypneic and was having significant conversational dyspnea. She was given multiple rounds of nebulizer as well as IV Solu-Medrol. Patient was admitted in the hospital and started her on high-dose IV steroids and frequent nebulizers. Her symptoms started improving slowly, patient states she feels like she is back to baseline today. Due to her COPD I also started her on Symbicort 1 puff BID. Will discharge her home in a stable condition today - Time Spent with Patient Total time spent providing and/or coordinating discharge services: - Discharge Medications Prescriptions: Budesonide/Formoterol 80/4.5 [Symbicort 80/4.5] 1 puff IH BIDR #1 inhaler Omeprazole [PriLOSEC] 20 mg PO DAILY #30 capsule. predniSONE [PredniSONE] 40 mg PO DAILY #10 tablet Home Medications: Nitroglycerin 0.4 mg SL Q5MIN PRN #90 tab.subl 11/17/15 [Rx] Aspirin Enteric Coated [Aspirin EC] 325 mg PO DAILY #21 tablet. 04/30/16 [Rx] Albuterol Sulfate [Albuterol Inhaler] 2 puff IH Q6HR PRN 05/01/16 [History] Gabapentin [Neurontin] 600 mg PO BID 05/01/16 [History] Ipratropium/Albuterol Neb [Duoneb] 3 ml IH Q6HR PRN 05/01/16 [History] Montelukast [Singulair] 10 mg PO HS 05/01/16 [History] Simethicone [Bicarsim] 80 mg PO BID 05/01/16 [History] ALPRAZolam [Xanax 1 MG Tablet] 1 mg PO BID PRN 02/19/18 [History] Ergocalciferol (VITAMIN D2) [Vitamin D2] 50,000 unit PO MO 02/24/18 [History] Budesonide/Formoterol 80/4.5 [Symbicort 80/4.5] 1 puff IH BIDR #1 inhaler 07/23/18 [Rx] Omeprazole [PriLOSEC] 20 mg PO DAILY #30 capsule. 07/23/18 [Rx] predniSONE [PredniSONE] 40 mg PO DAILY #10 tablet 07/23/18 [Rx] Allergies/Adverse Reactions: Allergy/AdvReac Type Severity Reaction Status Date / Time No Known Allergies Allergy Verified 04/03/18 20:40 Date of admission: 07/22/18 01:11 Primary care physician: Jagdeep Walters MD Consults: 07/22/18 09:49 Consult to Nurse Navigator [CONS] Routine Comment: COPD - Constitutional Vitals: Temp Pulse Resp BP Pulse Ox 97.8 F 78 17 137/75 98 07/23/18 06:42 07/23/18 06:42 07/23/18 07:52 07/23/18 06:42 07/23/18 07:52 General appearance: Present: cooperative, A&O X 3, no acute distress, answers questions appropriately Exam: Gen: Alert, awake, Oriented to time,place and person Chest: Diminished breath sounds B/L, mild wheezing, No crackles, No rales Heart: S1S2+ RRR No murmurs Abd: Soft, NT, BS +, No organomegaly Ext: No edema, pulses are palpable, No calf tenderness Neuro : Benign findings Skin: No rash. - Patient Status Disposition: Home, Self-Care Condition: Good Overall status at discharge: patient is back to baseline - Discharge Instructions Follow Up With: Jagdeep Walters MD [Primary Care Provider] - (Your appointment has been requested. our offices will call you with an apointment time and date.) - Diet and Activity Activity: increase activity as tolerated, wear oxygen at night Diet: low salt diet
--- NOTE | 2018-07-23 10:27 | Physician Discharge Referral ---
Home Health/Hosp Referral Info Transfer to: Home Health Provider in Charge Post Discharge: PCP - Diagnosis (1) Chronic obstructive pulmonary disease with (acute) exacerbation Status: Acute (2) Anxiety Status: Chronic (3) Congestive heart failure Status: Chronic (4) DVT prophylaxis Status: Acute (5) Morbid obesity Status: Chronic - Respiratory Orders Smoking Cessation: Smoking cessation has been advised. For more information, call the [place] Tobacco Quit Line at 5-462-ZPSG-NOW. - Services Needed Following services are medically necessary services: Nursing, Home Health Aide - Transfer Medications Prescriptions: Budesonide/Formoterol 80/4.5 [Symbicort 80/4.5] 1 puff IH BIDR #1 inhaler Omeprazole [PriLOSEC] 20 mg PO DAILY #30 capsule. predniSONE [PredniSONE] 40 mg PO DAILY #10 tablet Home Medications: Nitroglycerin 0.4 mg SL Q5MIN PRN #90 tab.subl 11/17/15 [Rx] Aspirin Enteric Coated [Aspirin EC] 325 mg PO DAILY #21 tablet. 04/30/16 [Rx] Albuterol Sulfate [Albuterol Inhaler] 2 puff IH Q6HR PRN 05/01/16 [History] Gabapentin [Neurontin] 600 mg PO BID 05/01/16 [History] Ipratropium/Albuterol Neb [Duoneb] 3 ml IH Q6HR PRN 05/01/16 [History] Montelukast [Singulair] 10 mg PO HS 05/01/16 [History] Simethicone [Bicarsim] 80 mg PO BID 05/01/16 [History] ALPRAZolam [Xanax 1 MG Tablet] 1 mg PO BID PRN 02/19/18 [History] Ergocalciferol (VITAMIN D2) [Vitamin D2] 50,000 unit PO MO 02/24/18 [History] Budesonide/Formoterol 80/4.5 [Symbicort 80/4.5] 1 puff IH BIDR #1 inhaler 07/23/18 [Rx] Omeprazole [PriLOSEC] 20 mg PO DAILY #30 capsule. 07/23/18 [Rx] predniSONE [PredniSONE] 40 mg PO DAILY #10 tablet 07/23/18 [Rx] Allergies/Adverse Reactions: Allergy/AdvReac Type Severity Reaction Status Date / Time No Known Allergies Allergy Verified 04/03/18 20:40 Certification: Further, I certify that my clinical findings support that this patient is homebound (i.e. absences from home require considerable and taxing effort and are for medical reasons or buddhist services or infrequently or short duration when for other reasons) because: Homebound Reason: Patient requires assistance of a person or device to safely leave home Attestation: My signature below is to certify that this patient is under my care and that I, or nurse practitioner, or a physician's community relations assistant working with me, has a [id number] encounter with this patient.
--- NOTE | 2018-07-23 13:28 | Electrocardiograph Report ---
[address] [place], [place] [address] Test Date: 2018-07-22 Pat Name: Nancy Gunter Department: EXAM2 Room: 3B Gender: F Surgical Attendant: : 1955 Requested By: Uday Mckeon Order Number: [id number] Reading MD: Joann Maradiaga Measurements Intervals Rogers Rate: 64 P: -43 AR: 94 QRS: 53 QRSD: 102 T: 68 QT: 440 QTc: 454 Interpretive Statements Sinus rhythm Short AR interval Electronically Signed On 07-23-2018 13:26:59 EST by Joann Maradiaga
== END 2018-07-23 13:12 | disposition home or self-care (01) ==
LOC: EMEROOARM 23:40 → 3BNU 23:40
PROVIDERS: ADMIT Internal Medicine; ATTEND Internal Medicine

== ENCOUNTER 2019-03-07 22:25 | Observation (INO) ==
[2019-03-07 23:45] LABS: Basophils % 0.2 %; Eosinophils # 0.1 K/mcL (0.0-0.6); Eosinophils % 1.4 %; Hematocrit 40.3 % (35.3-44.9); Hemoglobin 13.2 g/dL (11.5-15.4); Immature Granulocytes % 0.2 % (0-4); Lymphocytes # 2.7 K/mcL (0.6-4.6); Lymphocytes % 26.2 %; Mean Corpuscular HGB Conc 32.8 g/dL (31.6-35.5); Mean Corpuscular Hemoglobin 30.2 pg (28.0-33.3); Mean Corpuscular Volume 92.2 fL (83.0-100.0); Mean Platelet Volume 9.8 fL (9.4-12.4); Monocytes # 0.5 K/mcL (0.0-1.3); Neutrophils # 6.9 K/mcL (1.6-8.9); Platelet Count 232 K/mcL (140-400); Red Blood Count 4.37 M/mcL (3.82-4.97); Red Cell Distribution Width 13.1 % (11.5-14.5); White Blood Count 10.3 K/mcL (4.3-11.1)
[2019-03-07 23:52] LABS: INR 1.1; Prothrombin Time 12.1 Seconds (9.4-12.1)
[2019-03-07 23:55] LABS: Activated Partial Thrombo Time 31.8 Seconds (26.0-36.0)
[2019-03-08 00:40] LABS: Chloride 100 mEq/L (98-107); Sodium 140 mEq/L (136-145); Troponin I < 0.03 ng/mL (< 0.04)
[2019-03-08 00:56] LABS: BUN/Creatinine Ratio 18 (6-26); Blood Urea Nitrogen 17 mg/dL (8-23); Calcium 8.8 mg/dL (8.6-10.3); Carbon Dioxide 32 mEq/L (23-29); Glucose 121 mg/dL (70-105); Osmolality,Calculated 293 (280-300); eGFR For African Americans > 60 (> 60); eGFR For Non-African Americans 58 (> 60)
[2019-03-08] MEDS ORDERED: Nitroglycerin 0.4 MG TAB.SUBL SL PRN (01:28)
[2019-03-08] MEDS ORDERED: Aspirin 325 MG TABLET PO ONE (01:28)
--- NOTE | 2019-03-08 01:38 | Emergency Department Note ---
Disposition Clinical Impression: Chest pain Qualifiers: Chest pain type: unspecified Qualified Code(s): R07.9 - Chest pain, unspecified Disposition: Admitted As Inpatient Condition: Good Time of Disposition: 04:01 Chest Pain HPI - General Chief Complaint: ED Chest Pain Stated Complaint: CP Time Seen by Provider: 03/07/19 23:59 Source: patient Limitations: no limitations Vital Signs Reviewed: Yes Nursing Notes Reviewed: Yes - History of Present Illness HPI Narrative: 63-year-old female presents from home via EMS for evaluation of chest pain. Onset 7:30 to 8 PM this evening. Described as left sided sharp stab with radiation around the left flank. No unusual dyspnea or nausea. Present at rest and worse with exertion. Unchanged thoracic movement or with deep breathing. Pain is never completely subsided. It was unchanged at home with low-dose aspir in, with nebulizer, or with a single subungual nitroglycerin. PMH: Obesity, diabetes, COPD on baseline 2 L nasal cannula at night, CHF with ACS status post NH approximately 9 months ago no stent, history CHF ROS: Positive: As above Negative: Fever, chills, nausea, vomiting, palpitations, unusual dyspnea, diaphoresis, cough Severity scale (1-10): 8 - Related Data Home Medications Medication Instructions Recorded Confirmed Albuterol Sulfate [Proventil 2 puff IH Q6HR PRN 05/01/16 03/08/19 Inhaler] Gabapentin [Neurontin] 800 mg PO BID 05/01/16 03/08/19 Ipratropium/Albuterol Neb [Duoneb] 3 ml IH Q6HR PRN 05/01/16 03/08/19 Montelukast [Singulair] 10 mg PO HS 05/01/16 03/08/19 Simethicone [Bicarsim] 80 mg PO BID 05/01/16 03/08/19 ALPRAZolam [Xanax 1 MG Tablet] 1 mg PO BID PRN 02/19/18 03/08/19 Ergocalciferol (VITAMIN D2) 50,000 unit PO MO 02/24/18 03/08/19 [Vitamin D2] Previous Rx's Medication Instructions Recorded Nitroglycerin 0.4 mg SL Q5MIN PRN #90 tab.subl 11/17/15 Aspirin Enteric Coated [Aspirin EC] 325 mg PO DAILY #21 tablet. 04/30/16 Budesonide/Formoterol 80/4.5 1 puff IH BIDR #1 inhaler 07/23/18 [Symbicort 80/4.5] Omeprazole [PriLOSEC] 20 mg PO DAILY #30 capsule. 07/23/18 predniSONE [PredniSONE] 40 mg PO DAILY #8 tablet 12/04/18 Allergies Allergy/AdvReac Type Severity Reaction Status Date / Time No Known Allergies Allergy Verified 03/08/19 00:02 All systems ED: reviewed and negative except as stated. 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 Head: atraumatic, normocephalic Eye: normal appearance, PERRL, EOMI, no scleral icterus, no conjunctival injection ENT: mucous membranes moist, normal external ear exam Neck: normal inspection, trachea midline, full ROM Chest: normal inspection, symmetric chest rise Respiratory: Good respiratory effort. Bilateral breath sounds have scant bibasilar wheeze. No crackles or rhonchi. Cardiovascular: Regular rate and rhythm. No clicks, rubs, gallops, or murmors. Normal heart sounds. Bilateral radial and posterior tibial pulses 2/4. Trace pedal edema bilaterally. Abdomen: Bowel sounds present normoactive. Abdomen is soft, nondistended, and nontender. No guarding or rebound. No organomegaly noted. Musculoskeletal: Spontaneously moving all extremities. Skin: warm, dry, intact. Neuro: GCS 15. No focal neurologic deficits observed. Psych: Patient's affect is appropriate for situation. - General Limitations: no limitations General appearance: alert Course Course Narrative: EKG dated 07 March 2019 at 22:32 interpreted as sinus rhythm with a rate of 73. Short [place] at 99 ms. QRS 96, QTC 49. Normal axis. Nonspecific ST-T changes. Compared to previous EKG dated 11/17/2018 showing no acute ischemic changes or comparison. Chest x-ray is unremarkable. Serum hematology is unremarkable. Initial troponin is within normal limits. I discussed the above the patient. Though her symptoms are atypical, she has multiple concerning comorbidities. She is agreeable to admission for continued cardiac evaluation. I discussed the above with the admitting hospitalist, Dr. Camarena, who agrees to the patient for continued evaluation for chest pain. Vital Signs Temperature 98.3 F 03/07/19 22:37 Pulse Rate 74 03/07/19 22:37 Respiratory Rate 16 03/07/19 22:37 Blood Pressure 180/83 03/07/19 22:37 O2 Sat by Pulse Oximetry 92 03/07/19 22:37 Temperature 98.3 F 03/07/19 22:37 Pulse Rate 72 03/08/19 01:31 Respiratory Rate 14 03/08/19 03:37 Blood Pressure 170/75 03/08/19 03:37 O2 Sat by Pulse Oximetry 100 03/08/19 01:31 Oxygen Delivery Oxygen Delivery Nasal Cannula Chest Pain - Lab Data Result diagrams: 03/07/19 23:26 03/07/19 23:26 Lab Results 03/07/19 03/07/19 03/07/19 Range/Units 23:26 23:26 23:26 WBC 10.3 (4.3-11.1) K/mcL RBC 4.37 (3.82-4.97) M/mcL Hgb 13.2 (11.5-15.4) g/dL Hct 40.3 (35.3-44.9) % MCV 92.2 (83.0-100.0) fL MCH 30.2 (28.0-33.3) pg MCHC 32.8 (31.6-35.5) g/dL RDW 13.1 (11.5-14.5) % Plt Count 232 (140-400) K/mcL MPV 9.8 (9.4-12.4) fL Immature Gran % 0.2 (0-4) % Seg Neutrophils % 67.0 % Lymphocytes % 26.2 % Monocytes % 5.0 % Eosinophils % 1.4 % Basophils % 0.2 % Neutrophils # 6.9 (1.6-8.9) K/mcL Lymphocytes # 2.7 (0.6-4.6) K/mcL Monocytes # 0.5 (0.0-1.3) K/mcL Eosinophils # 0.1 (0.0-0.6) K/mcL Basophils # 0.0 (0.0-0.2) K/mcL PT 12.1 (9.4-12.1) Seconds INR 1.1 APTT 31.8 (26.0-36.0) Seconds Sodium 140 (136-145) mEq/L Potassium 4.0 (3.5-5.1) mEq/L Chloride 100 (98-107) mEq/L Carbon Dioxide 32 H (23-29) mEq/L BUN 17 (8-23) mg/dL Creatinine 0.97 (0.60-1.20) mg/dL Est GFR ( Amer) > 60 (> 60) Est GFR (Non-Af Amer) 58 L (> 60) BUN/Creatinine Ratio 18 (6-26) Glucose 121 H (70-105) mg/dL Calculated Osmolality 293 (280-300) Calcium 8.8 (8.6-10.3) mg/dL Troponin I < 0.03 (< 0.04) ng/mL Heart Score - Score History: Slightly Suspicious EKG: Non Specific repolarisation Disturbance Age: 45-65 Risk Factors: Equal/Greater than 3 risk factor or history of atherosclerotic disease Troponin: Less than normal limit HEART Score Total: 4
--- NOTE | 2019-03-08 03:03 | Emergency Department Note ---
Disposition Clinical Impression: Chest pain Qualifiers: Chest pain type: unspecified Qualified Code(s): R07.9 - Chest pain, unspecified Disposition: Admitted As Inpatient Condition: Good Referrals: Jagdeep Walters MD [Primary Care Provider] - Forms: ED Satisfaction Letter Time of Disposition: 03:20 General Adult HPI - General Chief complaint: ED Chest Pain Stated complaint: CP Time Seen by Provider: 03/07/19 23:59 Source: patient Limitations: no limitations Nursing Notes Reviewed: Yes Vital Signs Reviewed: Yes - History of Present Illness Pain Scale: 8 - Related Data Home Medications Medication Instructions Recorded Confirmed Albuterol Sulfate [Proventil 2 puff IH Q6HR PRN 05/01/16 03/08/19 Inhaler] Gabapentin [Neurontin] 800 mg PO BID 05/01/16 03/08/19 Ipratropium/Albuterol Neb [Duoneb] 3 ml IH Q6HR PRN 05/01/16 03/08/19 Montelukast [Singulair] 10 mg PO HS 05/01/16 03/08/19 Simethicone [Bicarsim] 80 mg PO BID 05/01/16 03/08/19 ALPRAZolam [Xanax 1 MG Tablet] 1 mg PO BID PRN 02/19/18 03/08/19 Ergocalciferol (VITAMIN D2) 50,000 unit PO MO 02/24/18 03/08/19 [Vitamin D2] Previous Rx's Medication Instructions Recorded Nitroglycerin 0.4 mg SL Q5MIN PRN #90 tab.subl 11/17/15 Aspirin Enteric Coated [Aspirin EC] 325 mg PO DAILY #21 tablet. 04/30/16 Budesonide/Formoterol 80/4.5 1 puff IH BIDR #1 inhaler 07/23/18 [Symbicort 80/4.5] Omeprazole [PriLOSEC] 20 mg PO DAILY #30 capsule. 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 - Social History Smoking Status: Never smoker Smokeless Tobacco Status: No Alcohol use: Reports: rarely Drug use: Reports: none Physical Exam - General Limitations: no limitations General appearance: alert Course Vital Signs Temperature 98.3 F 03/07/19 22:37 Pulse Rate 74 03/07/19 22:37 Respiratory Rate 16 03/07/19 22:37 Blood Pressure 180/83 03/07/19 22:37 O2 Sat by Pulse Oximetry 92 03/07/19 22:37 Temperature 98.3 F 03/07/19 22:37 Pulse Rate 72 03/08/19 01:31 Respiratory Rate 18 03/08/19 01:31 Blood Pressure 144/58 03/08/19 01:31 O2 Sat by Pulse Oximetry 100 03/08/19 01:31 Oxygen Delivery Oxygen Delivery Nasal Cannula Medical Decision Making - Medical Records Medical records reviewed: Yes I reviewed the patient's medical records. - Lab Data Lab results reviewed: Yes I reviewed the patient's lab results. Result diagrams: 03/07/19 23:26 03/07/19 23:26 Lab Results 03/07/19 03/07/19 03/07/19 Range/Units 23:26 23:26 23:26 WBC 10.3 (4.3-11.1) K/mcL RBC 4.37 (3.82-4.97) M/mcL Hgb 13.2 (11.5-15.4) g/dL Hct 40.3 (35.3-44.9) % MCV 92.2 (83.0-100.0) fL MCH 30.2 (28.0-33.3) pg MCHC 32.8 (31.6-35.5) g/dL RDW 13.1 (11.5-14.5) % Plt Count 232 (140-400) K/mcL MPV 9.8 (9.4-12.4) fL Immature Gran % 0.2 (0-4) % Seg Neutrophils % 67.0 % Lymphocytes % 26.2 % Monocytes % 5.0 % Eosinophils % 1.4 % Basophils % 0.2 % Neutrophils # 6.9 (1.6-8.9) K/mcL Lymphocytes # 2.7 (0.6-4.6) K/mcL Monocytes # 0.5 (0.0-1.3) K/mcL Eosinophils # 0.1 (0.0-0.6) K/mcL Basophils # 0.0 (0.0-0.2) K/mcL PT 12.1 (9.4-12.1) Seconds INR 1.1 APTT 31.8 (26.0-36.0) Seconds Sodium 140 (136-145) mEq/L Potassium 4.0 (3.5-5.1) mEq/L Chloride 100 (98-107) mEq/L Carbon Dioxide 32 H (23-29) mEq/L BUN 17 (8-23) mg/dL Creatinine 0.97 (0.60-1.20) mg/dL Est GFR ( Amer) > 60 (> 60) Est GFR (Non-Af Amer) 58 L (> 60) BUN/Creatinine Ratio 18 (6-26) Glucose 121 H (70-105) mg/dL Calculated Osmolality 293 (280-300) Calcium 8.8 (8.6-10.3) mg/dL Troponin I < 0.03 (< 0.04) ng/mL - Radiology Data Radiology results reviewed: Yes I reviewed the patient's radiology results. Chest X-Ray 03/08/19 00:00 IMPRESSION: No acute process. D/ / Valentin Morales MD / Valentin Morales MD Interpreting Provider: Valentin Morales MD - EKG Data EKG #1 EKG attestation: Yes I reviewed and interpreted this EKG. EKG results narrative: EKG shows a normal sinus rhythm with ventricular rate of 73. No significant ST segment elevation or depression. No arrhythmia or ectopy. Normal EKG. Attestation Statement - Attestation Attestation: I, Jon Lundberg MD, personally evaluated this patient and discussed their management with the resident physician. I reviewed the resident's note and agree with the documented findings, medical decision making, and plan of care. I reviewed the residents documentation and agree with the residents assessment and plan of care. I have personally had face to face time with the patient. I personally supervised and was present for the cardozo/critical portions of the following procedures completed by the resident: EKG interpretation. 63-year-old female presents to the emergency department with a complaint of some left-sided chest pain which started earlier this evening around 7:30 PM. She describes the pain as a pressure and heaviness like "a ton of bricks on her chest "with intermittent sharp stabbing pains like a knife cutting. The pain comes and goes. It is worse with exertion. There has been increased shortness of breath associated with the pain. No diaphoresis. Patient states she does have a history of a previous NV. Patient states that she took one low-dose aspirin home and use one nitroglycerin with no change in the chest discomfort. She also nebulizer treatment with no change. On examination patient is a well-developed obese female in no acute distress. She is alert and oriented 3. There is no cyanosis or diaphoresis. Chest is nontender to palpation. Breath sounds are decreased bilaterally with some mild late bilateral expiratory wheezes. Heart regular rate and rhythm. Abdomen soft and nontender with normal bowel sounds. Trace pedal edema. EKG shows a normal sinus rhythm with ventricular rate of 73. No significant ST segment elevation or depression. No arrhythmia or ectopy. Normal EKG. chest x-ray negative. Labs reviewed and unremarkable. Troponin normal. The hospitalist, Dr. Camarena, was consulted and accepted admission of the patient.
[2019-03-08] MEDS ORDERED: Naloxone 0.4 MG/ML INJ IVP PRN (03:21)
[2019-03-08] MEDS ORDERED: Ondansetron 4 MG/2 ML VIAL IVP PRN (03:21)
--- NOTE | 2019-03-08 03:28 | Internal Med History&Physical ---
Date of Encounter: 03/08/19 Time of Encounter: 03:24 Internal Medicine - H&P: HPI Chief complaint: CP History of present illness: 63-year-old female presents from home with PMH OF asthma, CHF, COPD, hypertension and myocardial infarction about 9 months ago who presented to emergency department with left-sided chest pain, sharp in character, was radiation the back. The patient denied shortness of breath, diaphoresis, palpitation, dyspnea, paroxysmal nocturnal dyspnea, orthopnea, progressive forcing of lower extremity edema and dizziness. The patient stated that the pain is exacerbated with exertion and was not alleviated with nitroglycerin. The patient also have history of COPD and she tried nebulizer to alleviate her pain was no response. The patient was evaluated by the ER staff and EKG revealed no significant ischemic ST-T wave changes and troponin first set was was no significant abnormalities. The patient was admitted for further evaluation and management. [place] on arrival to the floor, the patient wanted to leave AGAINST MEDICAL ADVICE, hour nurse practitioner DANY SERRANO kindly and promptly responded to the bedside, and has a long conversation with the patient about the risk of leaving, patient agreed to stay for now. Past Med Surg Social Fam HX - Past Medical History Medical history: asthma, CHF, COPD, hypertension Additional medical history: chronic back pains Psychiatric history: anxiety - Past Surgical History Surgical History: cholecystectomy Additional surgical history: tubal. colonoscopy - Social History Smoking Status: Never smoker Smokeless Tobacco Status: No Alcohol use: rarely Drug use: none - Family History Mother Living Status: Hx Family Cardiac Disorders: Yes Hx Family Respiratory Disorders: Yes Internal Medicine - H&P: Meds Nitroglycerin 0.4 mg SL Q5MIN PRN #90 tab.subl 11/17/15 [Rx] Aspirin Enteric Coated [Aspirin EC] 325 mg PO DAILY #21 tablet. 04/30/16 [Rx] Albuterol Sulfate [Proventil Inhaler] 2 puff IH Q6HR PRN 05/01/16 [History] Gabapentin [Neurontin] 800 mg PO BID 05/01/16 [History] Ipratropium/Albuterol Neb [Duoneb] 3 ml IH Q6HR PRN 05/01/16 [History] Montelukast [Singulair] 10 mg PO HS 05/01/16 [History] Simethicone [Bicarsim] 80 mg PO BID 05/01/16 [History] ALPRAZolam [Xanax 1 MG Tablet] 1 mg PO BID PRN 02/19/18 [History] Ergocalciferol (VITAMIN D2) [Vitamin D2] 50,000 unit PO MO 02/24/18 [History] Budesonide/Formoterol 80/4.5 [Symbicort 80/4.5] 1 puff IH BIDR #1 inhaler 07/23/18 [Rx] Omeprazole [PriLOSEC] 20 mg PO DAILY #30 capsule.dr 07/23/18 [Rx] predniSONE [PredniSONE] 40 mg PO DAILY #8 tablet 12/04/18 [Rx] metFORMIN PO DAILY 03/08/19 [History] Allergy/AdvReac Type Severity Reaction Status Date / Time No Known Allergies Allergy Verified 03/08/19 00:02 All Systems PM: A 10-system review of systems was performed and is negative for pertinent findings except as documented above in the HPI. - Constitutional Vitals: Temp Pulse Resp BP Pulse Ox 98.3 F 72 18 144/58 100 03/07/19 22:37 03/08/19 01:31 03/08/19 01:31 03/08/19 01:31 03/08/19 01:31 General appearance: Present: A&O X 3, morbidly obese - Head Head exam: Present: atraumatic, normocephalic - Neck Neck exam general surgery: Present: supple, trachea midline. Absent: lymphadenopathy - Respiratory Respiratory exam: Present: CTAB. Absent: accessory muscle use, rales, rhonchi, wheezes - Cardiovascular Cardiovascular exam: Present: RRR, +S1, +S2. Absent: diastolic murmur, gallop, rubs, systolic murmur - GI/Abdominal GI/Abdominal exam: Present: normal bowel sounds, soft, no peritoneal signs. Absent: distended, tenderness - Extremities Exam Extremities exam: Present: warm, radial pulses palpable and symmetrical. Absent: calf tenderness, cyanotic, pedal edema Internal Med - H&P Results - Labs CBC & Chem 7: 03/08/19 04:07 03/08/19 04:07 Labs: Short CBC 03/07/19 Range/Units 23:26 WBC 10.3 (4.3-11.1) K/mcL Hgb 13.2 (11.5-15.4) g/dL Hct 40.3 (35.3-44.9) % Plt Count 232 (140-400) K/mcL Neutrophils # 6.9 (1.6-8.9) K/mcL BMP 03/07/19 23:26 Sodium 140 Potassium 4.0 Chloride 100 Carbon Dioxide 32 H BUN 17 Creatinine 0.97 Glucose 121 H Calcium 8.8 Cardiac Enzymes 03/07/19 Range/Units 23:26 Troponin I < 0.03 (< 0.04) ng/mL - Impressions ITS Impressions Chest X-Ray 03/08/19 00:00 IMPRESSION: No acute process. D/ / Valentin Morales MD / Valentin Morales MD Interpreting Provider: Valentin Morales MD - Assessment and Plan (1) Chest pain Current Visit: Yes Status: Acute Assessment and plan: Chest pain in the setting of past medical history of myocardial infarction, morb id obesity, R/O CAD, EKG was no significant ST-T wave changes, cardiac enzymes first set was no significant abnormalities. PLAN: - cardiac enzymes x 2 q 8 hr - EKG now and in AM - ASA - O2 by NC to keep SpO2 greater than 92% - UA - CBCD, BMP in AM - Fasting lipids - Morphine 2 mg IV q 2-4 hr PRN chest pain - Tylenol 650 mg PO q 4-6 hr PRN headache - Heparin 5000 U SQ BID - 2D Echo - Stress test Qualifiers: Chest pain type: unspecified Qualified Code(s): R07.9 - Chest pain, unspecified (2) Anxiety Current Visit: No Status: Chronic (3) COPD (chronic obstructive pulmonary disease) Current Visit: No Status: Chronic Assessment and plan: We will cont. home inhales, start DuoNeb when necessary Qualifiers: COPD type: unspecified COPD Qualified Code(s): J44.9 - Chronic obstructive pulmonary disease, unspecified (4) Congestive heart failure Current Visit: No Status: Chronic Assessment and plan: We will continue home diuretic regimen, low-salt diet, fluid restriction. Qualifiers: Heart failure type: diastolic Heart failure chronicity: acute on chronic Qualified Code(s): I50.33 - Acute on chronic diastolic (congestive) heart fa ilure (5) DMII (diabetes mellitus, type 2) Current Visit: No Status: Chronic Assessment and plan: We will start insulin sliding scale with moderate coverage. Qualifiers: Diabetes mellitus skilled nursing insulin use: unspecified skilled nursing insulin use status Diabetes mellitus complication status: with unspecified complications (6) Hypertension Current Visit: No Status: Chronic Assessment and plan: We will cont. home meds, we will cont. to monitor blood pressure while inpatient and adjust antihypertensive regimen if indicated. Qualifiers: Hypertension type: essential hypertension Qualified Code(s): I10 - Essential (primary) hypertension (7) Morbid obesity Current Visit: No Status: Chronic - Time Spent With Patient Total time spent is greater than 50% in coordination of care (as documented) at patient's floor/unit and/or counseling patient:
[2019-03-08 04:18] LABS: Basophils % 0.2 %; Eosinophils # 0.2 K/mcL (0.0-0.6); Eosinophils % 1.6 %; Hematocrit 38.9 % (35.3-44.9); Hemoglobin 12.5 g/dL (11.5-15.4); Immature Granulocytes % 0.4 % (0-4); Lymphocytes # 2.9 K/mcL (0.6-4.6); Lymphocytes % 27.6 %; Mean Corpuscular HGB Conc 32.1 g/dL (31.6-35.5); Mean Corpuscular Hemoglobin 29.8 pg (28.0-33.3); Mean Corpuscular Volume 92.6 fL (83.0-100.0); Mean Platelet Volume 9.9 fL (9.4-12.4); Monocytes # 0.5 K/mcL (0.0-1.3); Neutrophils # 6.9 K/mcL (1.6-8.9); Platelet Count 243 K/mcL (140-400); Red Cell Distribution Width 13.2 % (11.5-14.5); Segmented Neutrophils % 65.2 %; White Blood Count 10.6 K/mcL (4.3-11.1)
[2019-03-08 04:25] LABS: Prothrombin Time 11.8 Seconds (9.4-12.1)
[2019-03-08 04:27] LABS: Activated Partial Thrombo Time 31.1 Seconds (26.0-36.0)
[2019-03-08 04:37] LABS: Alanine Aminotransferase 12 Units/L (7-52); Albumin 3.9 g/dL (3.5-5.7); Albumin/Globulin Ratio 1.4 (1.1-2.2); Alkaline Phosphatase 79 Units/L (34-104); Aspartate Amino Transferase 17 Units/L (13-39); BUN/Creatinine Ratio 18 (6-26); Bilirubin,Total 0.6 mg/dL (0.3-1.0); Blood Urea Nitrogen 18 mg/dL (8-23); Calcium 8.5 mg/dL (8.6-10.3); Carbon Dioxide 32 mEq/L (23-29); Chloride 99 mEq/L (98-107); Chol/HDL Ratio 4.6 (0-4.9); Cholesterol 209 mg/dL (< 200); Globulin 2.7 g/dL (2.4-3.5); Glucose 125 mg/dL (70-105); HDL Cholesterol 45 mg/dL (40-59); LDL Cholesterol,Calculated 132 mg/dL (0-99); Magnesium 1.8 mg/dL (1.6-2.6); Osmolality,Calculated 293 (280-300); Phosphorous 3.8 mg/dL (2.7-4.5); Potassium 3.8 mEq/L (3.5-5.1); Sodium 140 mEq/L (136-145); Total Protein 6.6 g/dL (6.4-8.9); Triglycerides 162 mg/dL (< 150); eGFR For African Americans > 60 (> 60); eGFR For Non-African Americans 55 (> 60)
[2019-03-08] MEDS ORDERED: Morphine Sulfate 2 MG/ML SYRINGE IVP PRN (04:38)
[2019-03-08] MEDS ORDERED: Nitroglycerin 1 INCH/GM PACKET TP ONE (04:39)
[2019-03-08] MEDS ORDERED: Ipratropium/Albuterol Neb 3 ML IH PRN (04:42)
[2019-03-08] MEDS ORDERED: ALPRAZolam 1 MG TABLET PO PRN (04:42)
[2019-03-08] MEDS ORDERED: Dextrose Gel 15 GM/37.5 ML TUBE PO PRN ×2 (04:43)
[2019-03-08] MEDS ORDERED: *HR* Dextrose 50 % in Water (Syg) 50 ML SYRINGE IVP PRN (04:43)
[2019-03-08] MEDS ORDERED: D5% in Water 1,000 ML IVC PRN (04:43)
--- NOTE | 2019-03-08 05:16 | Event Note ---
Date of Encounter: 03/08/19 Time of Encounter: 04:50 Alerted by pts. nurse PHONG Goodson that the pt. was unhappy about not being able to eat or take sleep medications. I went to see the pt. who was laying in bed and visibly agitated. Pt is admitted for ACS r/o and active CP. I explained the risks of leaving AMA d/t her current CP and her risk factors. Pt. continued to say that she wanted to eat and have something to help her sleep. Pt. expressed understanding to risks of leaving AMA, including from a massive IA. She stated she understood and would take responsibility. While in the room, all lights were on and the TV was playing loudly. I offered to turn off the lights and TV in order to help the pt. sleep to which she said no. Pt. stated she hasn't decided whether or not she is leaving. Nurse instructed to have AMA paperwork ready in the event she decides to leave. Will continue to monitor the situation.
[2019-03-08] MEDS: Insulin LISPRO 300 UNITS/3 ML VIAL SQ SCH ×3 (07:41→17:52)
[2019-03-08] MEDS: Budesonide/Formoterol 80/4.5 MDI IH SCH ×2 (08:10→20:06)
[2019-03-08 12:17] LABS: Bilirubin,Urine Negative (Negative); Blood,Urine Negative (Negative); Clarity,Urine Clear (Clear); Color,Urine Yellow (Yellow); Glucose,Urine (UA) Normal (Normal); Ketones,Urine Negative (Negative); Leukocyte Esterase,Urine Negative (Negative); Nitrite,Urine Negative (Negative); PH,Urine 6.5 pH Units (5.0-8.0); Protein,Urine Negative (Neg-Trace); Specific Gravity,Urine 1.018 (1.010-1.025); Urobilinogen,Urine Normal (Normal)
[2019-03-08] MEDS: Aspirin Enteric Coated 325 MG Tablet PO SCH (12:36)
[2019-03-08] MEDS: Gabapentin 400 MG CAPSULE PO SCH ×2 (12:36→20:46)
[2019-03-08] MEDS: Simethicone 80 MG TAB.CHEW PO SCH ×2 (12:36→20:46)
[2019-03-08] MEDS: predniSONE 20 MG TABLET PO SCH (12:37)
--- NOTE | 2019-03-08 15:06 | Event Note ---
Date of Encounter: 03/08/19 Time of Encounter: 12:50 Ms Gunter has been placed in observation for chest pain. She is a 2 day stress test. She tells me that she is not going to miss hindu tomorrow and will be leaving in the morning. Exam Alert and comfortable Mucus membranes moist Heart not tachy Plan Stress test to be completed in AM.
[2019-03-08] MEDS ORDERED: Insulin LISPRO 300 UNITS/3 ML VIAL SQ SCH (21:00)
[2019-03-09 04:48] LABS: Hematocrit 39.1 % (35.3-44.9); Hemoglobin 12.9 g/dL (11.5-15.4); Mean Corpuscular Volume 90.9 fL (83.0-100.0); Mean Platelet Volume 10.2 fL (9.4-12.4); Platelet Count 261 K/mcL (140-400); White Blood Count 12.5 K/mcL (4.3-11.1)
[2019-03-09 04:52] LABS: BUN/Creatinine Ratio 20 (6-26); Blood Urea Nitrogen 17 mg/dL (8-23); Calcium 8.8 mg/dL (8.6-10.3); Carbon Dioxide 29 mEq/L (23-29); Chloride 103 mEq/L (98-107); Glucose 160 mg/dL (70-105); Osmolality,Calculated 289 (280-300); Potassium 4.7 mEq/L (3.5-5.1); Sodium 137 mEq/L (136-145); eGFR For African Americans > 60 (> 60); eGFR For Non-African Americans > 60 (> 60)
[2019-03-09] MEDS: Budesonide/Formoterol 80/4.5 MDI IH SCH (07:34)
[2019-03-09] MEDS: Insulin LISPRO 300 UNITS/3 ML VIAL SQ SCH ×2 (09:20→12:27)
[2019-03-09] MEDS: Simethicone 80 MG TAB.CHEW PO SCH (09:41)
[2019-03-09] MEDS: Gabapentin 400 MG CAPSULE PO SCH (09:41)
[2019-03-09] MEDS: predniSONE 20 MG TABLET PO SCH (09:41)
[2019-03-09] MEDS: Aspirin Enteric Coated 325 MG Tablet PO SCH (09:41)
[2019-03-09 12:05] VITALS: BP 142/80
--- NOTE | 2019-03-09 13:24 | Discharge Summary ---
- NOTES TO OUTPATIENT PROVIDER Notes to Outpatient Provider: Ms Gunter was placed in observation for chest pain. Echo and stress negative. Orders not resulted at time of discharge: Pending orders 03/07/19 22:50 ECG 12 lead ECG [ECG] Stat 03/08/19 04:07 Hgb A1C Routine 03/08/19 11:35 NM melisa perf SPECT multi [NM] Routine Date of Encounter: 03/09/19 Time of Encounter: 13:21 - Discharge Diagnosis (1) Chest pain Priority: Primary Status: Ruled-out Qualifiers: Chest pain type: chest pain due to myocardial ischemia Ischemic chest pain type: unstable angina pectoris Qualified Code(s): I20.0 - Unstable angina (2) Hypertension Priority: Secondary Status: Chronic Qualifiers: Hypertension type: essential hypertension Qualified Code(s): I10 - Essential (primary) hypertension (3) Anxiety Priority: Secondary Status: Chronic (4) DMII (diabetes mellitus, type 2) Priority: Secondary Status: Chronic Qualifiers: 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 s 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 Diabetes mellitus complication status: without complication Qualified Code(s): E11.9 - Type 2 diabetes mellitus without complications (5) Congestive heart failure Priority: Secondary Status: Chronic Qualifiers: Heart failure type: diastolic Heart failure chronicity: chronic Qualified Code(s): I50.32 - Chronic diastolic (congestive) heart failure (6) COPD (chronic obstructive pulmonary disease) Priority: Secondary Status: Chronic Qualifiers: COPD type: unspecified COPD Qualified Code(s): J44.9 - Chronic obstructive pulmonary disease, unspecified (7) Morbid obesity Priority: Secondary Status: Chronic Hospital course: Ms. Gunter is a 63 year old female with hx of DM presented to ED with chest pain. She was placed in observation. Ms Gunter was placed in observation. Initially she wanted to leave AMA but was convinced to stay. Her stress test was 2 day and ultimately was negative. Echo was negative as well. Today she is afebrile and feels OK. She is ready for discharge home. Discharge discussed with: patient - Time Spent with Patient Total time spent providing and/or coordinating discharge services: - Discharge Medications Prescriptions: New predniSONE [PredniSONE] 40 mg PO DAILY tablet Simethicone [Gas-X] 80 mg PO BID tab.chew Omeprazole [PriLOSEC] 20 mg PO 0730 capsule.dr Lynch Nitroglycerin 0.4 mg SL Q5MIN PRN #90 tab.subl PRN Reason: Chest Pain Montelukast [Singulair] 10 mg PO HS Albuterol Sulfate [Proventil Inhaler] 2 puff IH Q6HR PRN PRN Reason: Shortness Of Breath Ipratropium/Albuterol Neb [Duoneb] 3 ml IH Q6HR PRN PRN Reason: Wheezing ALPRAZolam [Xanax 1 MG Tablet] 1 mg PO BID PRN PRN Reason: Anxiety Ergocalciferol (VITAMIN D2) [Vitamin D2] 50,000 unit PO KLEIN Budesonide/Formoterol 80/4.5 [Symbicort 80/4.5] 1 puff IH BIDR #1 inhaler metFORMIN [Glucophage] 500 mg PO DAILY Aspirin [Lo-Dose Aspirin EC] 81 mg PO DAILY Gabapentin 800 mg PO QAM Gabapentin 1,600 mg PO HS Home Medications: Nitroglycerin 0.4 mg SL Q5MIN PRN #90 tab.subl 11/17/15 [Rx] Albuterol Sulfate [Proventil Inhaler] 2 puff IH Q6HR PRN 05/01/16 [History] Ipratropium/Albuterol Neb [Duoneb] 3 ml IH Q6HR PRN 05/01/16 [History] Montelukast [Singulair] 10 mg PO HS 05/01/16 [History] ALPRAZolam [Xanax 1 MG Tablet] 1 mg PO BID PRN 02/19/18 [History] Ergocalciferol (VITAMIN D2) [Vitamin D2] 50,000 unit PO KLEIN 02/24/18 [History] Budesonide/Formoterol 80/4.5 [Symbicort 80/4.5] 1 puff IH BIDR #1 inhaler 07/23/18 [Rx] metFORMIN [Glucophage] 500 mg PO DAILY 03/08/19 [History] Aspirin [Lo-Dose Aspirin EC] 81 mg PO DAILY 03/09/19 [History] Gabapentin 1,600 mg PO HS 03/09/19 [History] Gabapentin 800 mg PO QAM 03/09/19 [History] Omeprazole [PriLOSEC] 20 mg PO 0730 capsule. 03/09/19 [Rx] Simethicone [Gas-X] 80 mg PO BID tab.chew 03/09/19 [Rx] predniSONE [PredniSONE] 40 mg PO DAILY tablet 03/09/19 [Rx] Allergies/Adverse Reactions: Allergy/AdvReac Type Severity Reaction Status Date / Time No Known Allergies Allergy Verified 03/08/19 00:02 Date of admission: 03/08/19 03:28 Primary care physician: Jagdeep Walters MD Discharging clinician: Iain Hilliard Anticipated date of discharge: 03/09/19 - Constitutional Vitals: Temp Pulse Resp BP Pulse Ox 97.6 F 66 16 142/80 91 03/09/19 11:59 03/09/19 11:59 03/09/19 11:59 03/09/19 11:59 03/09/19 11:59 General appearance: Present: A&O X 3, morbidly obese Exam: See below - Head Head exam: Present: normocephalic - Eye Eye exam: Present: EOMI, conjuntiva pink - ENT ENT exam: Present: mucous membranes moist - Respiratory Respiratory exam: Present: CTAB. Absent: rhonchi, wheezes - Cardiovascular Cardiovascular exam: Present: RRR. Absent: tachycardia - GI/Abdominal GI/Abdominal exam: Present: soft. Absent: tenderness - Extremities Exam Extremities exam: Present: warm. Absent: tenderness - Neurological Exam Neurological exam: Present: alert, oriented X3, no focal deficits - Skin Skin exam: Present: dry, warm. Absent: rash - Patient Status Disposition: Home, Self-Care Condition: Good Functional capacity at discharge: independent ambulation Overall status at discharge: patient is progressing back to baseline - Discharge Instructions Instructions: Chest Pain (DC), Chronic Hypertension (DC), Hypertensive Crisis (DC), Anxiety (DC) Follow Up With: Jagdeep Walters MD [Primary Care Provider] - - Diet and Activity Activity: resume usual activities as tolerated Diet: advance to your usual diet
[2019-03-09] MEDS ORDERED: Gabapentin 400 MG CAPSULE PO SCH (21:00)
[2019-03-10] MEDS ORDERED: Aspirin Enteric Coated 81 MG Tablet PO SCH (09:00)
[2019-03-10] MEDS ORDERED: Gabapentin 400 MG CAPSULE PO SCH (09:00)
[2019-03-10 11:34] LABS: Estimated Average Glucose 123 mg/dl
--- NOTE | 2019-03-10 22:07 | Electrocardiograph Report ---
[address] [address] Test Date: 2019-03-07 Pat Name: Nancy Gunter Department: [id number] Room: 3B64 Gender: F House Rn: Rosina : 1955 Requested By: Jon Lundberg Order Number: [id number] Reading MD: Joann Maradiaga Measurements Intervals [place] Rate: 73 P: -60 IA: 99 QRS: 7 QRSD: 96 T: 55 QT: 383 QTc: 409 Interpretive Statements SINUS RHYTHM WITH SHORT IA INTERVAL Electronically Signed On 03-10-2019 22:06:16 EDT by Joann Maradiaga
== END 2019-03-09 14:22 | disposition home or self-care (01) ==
LOC: 3BNU 22:25 → EMEROOARM 22:25 → SUATTDRO 03-08 03:28 → 3BNU 03-08 03:39
PROVIDERS: ADMIT Internal Medicine Nephrology; ATTEND Internal Medicine

== ENCOUNTER 2019-07-09 20:45 | Observation (INO) ==
[2019-07-09 21:58] LABS: Basophils % 0.1 %; Eosinophils # 0.1 K/mcL (0.0-0.6); Eosinophils % 1.8 %; Hematocrit 36.7 % (35.3-44.9); Hemoglobin 12.2 g/dL (11.5-15.4); Immature Granulocytes % 0.3 % (0-4); Lymphocytes # 2.3 K/mcL (0.6-4.6); Lymphocytes % 31.3 %; Mean Corpuscular HGB Conc 33.2 g/dL (31.6-35.5); Mean Corpuscular Hemoglobin 30.5 pg (28.0-33.3); Mean Corpuscular Volume 91.8 fL (83.0-100.0); Mean Platelet Volume 9.9 fL (9.4-12.4); Monocytes # 0.4 K/mcL (0.0-1.3); Monocytes % 5.2 %; Neutrophils # 4.5 K/mcL (1.6-8.9); Platelet Count 238 K/mcL (140-400); Red Cell Distribution Width 13.5 % (11.5-14.5); Segmented Neutrophils % 61.3 %; White Blood Count 7.3 K/mcL (4.3-11.1)
[2019-07-09 22:28] LABS: BUN/Creatinine Ratio 22 (6-26); Blood Urea Nitrogen 22 mg/dL (8-23); Calcium 8.6 mg/dL (8.6-10.3); Carbon Dioxide 29 mEq/L (23-29); Chloride 106 mEq/L (98-107); Glucose 119 mg/dL (70-105); Osmolality,Calculated 296 (280-300); Potassium 4.1 mEq/L (3.5-5.1); Sodium 141 mEq/L (136-145); Troponin I < 0.03 ng/mL (< 0.04); eGFR For African Americans > 60 (> 60); eGFR For Non-African Americans 57 (> 60)
[2019-07-09] MEDS ORDERED: Azithromycin 500 MG in 0.9 % Sodium Chloride 250 ML IVPB ONE (22:43)
[2019-07-09] MEDS ORDERED: Ipratropium/Albuterol Neb 3 ML IH STA (22:59)
[2019-07-09] MEDS ORDERED: methylPREDNISolone 125 MG/2 ML VIAL IVP STA (23:44)
[2019-07-10] MEDS ORDERED: Dextrose Gel 15 GM/37.5 ML TUBE PO PRN ×2 (00:38)
[2019-07-10] MEDS ORDERED: *HR* Dextrose 50 % in Water (Syg) 50 ML SYRINGE IVP PRN (00:38)
[2019-07-10] MEDS ORDERED: D5% in Water 1,000 ML IVC PRN (00:38)
[2019-07-10] MEDS ORDERED: Nitroglycerin 0.4 MG TAB.SUBL SL PRN (02:51)
[2019-07-10] MEDS: ALPRAZolam 1 MG TABLET PO PRN ×2 (03:43→22:27)
[2019-07-10] MEDS: Gabapentin 400 MG CAPSULE PO SCH ×3 (03:43→21:03)
[2019-07-10] MEDS: Ipratropium/Albuterol Neb 3 ML IH SCH ×5 (04:04→23:18)
[2019-07-10 05:03] LABS: Basophils % 0.3 %; Eosinophils % 0.4 %; Hematocrit 39.8 % (35.3-44.9); Hemoglobin 12.7 g/dL (11.5-15.4); Immature Granulocytes % 0.8 % (0-4); Lymphocytes # 1.3 K/mcL (0.6-4.6); Lymphocytes % 17.7 %; Mean Corpuscular HGB Conc 31.9 g/dL (31.6-35.5); Mean Corpuscular Hemoglobin 30.5 pg (28.0-33.3); Mean Corpuscular Volume 95.7 fL (83.0-100.0); Mean Platelet Volume 10.2 fL (9.4-12.4); Monocytes # 0.1 K/mcL (0.0-1.3); Monocytes % 1.7 %; Neutrophils # 5.7 K/mcL (1.6-8.9); Platelet Count 212 K/mcL (140-400); Red Blood Count 4.16 M/mcL (3.82-4.97); Red Cell Distribution Width 13.6 % (11.5-14.5); Segmented Neutrophils % 79.1 %; White Blood Count 7.2 K/mcL (4.3-11.1)
[2019-07-10 05:26] LABS: Alanine Aminotransferase 18 Units/L (7-52); Albumin/Globulin Ratio 1.4 (1.1-2.2); Alkaline Phosphatase 65 Units/L (34-104); Aspartate Amino Transferase 21 Units/L (13-39); BUN/Creatinine Ratio 26 (6-26); Bilirubin,Total 0.5 mg/dL (0.3-1.0); Blood Urea Nitrogen 23 mg/dL (8-23); Calcium 8.7 mg/dL (8.6-10.3); Carbon Dioxide 27 mEq/L (23-29); Chloride 106 mEq/L (98-107); Globulin 2.8 g/dL (2.4-3.5); Glucose 180 mg/dL (70-105); Osmolality,Calculated 296 (280-300); Sodium 139 mEq/L (136-145); Total Protein 6.8 g/dL (6.4-8.9); eGFR For African Americans > 60 (> 60); eGFR For Non-African Americans > 60 (> 60)
[2019-07-10] MEDS: MethylPREDNISolone 40 MG/ML VIAL IVP SCH ×2 (06:06→12:19)
[2019-07-10] MEDS: Insulin LISPRO 300 UNITS/3 ML VIAL SQ SCH ×3 (08:04→17:35)
[2019-07-10] MEDS: Simethicone 80 MG TAB.CHEW PO SCH ×2 (08:04→21:03)
[2019-07-10] MEDS: Azithromycin 500 MG in 0.9 % Sodium Chloride 250 ML IVPB SCH (08:05)
[2019-07-10] MEDS: Aspirin Enteric Coated 81 MG Tablet PO SCH (08:05)
[2019-07-10] MEDS: *HR* Heparin 5,000 UNIT/ML VIAL SQ SCH ×2 (13:43→21:07)
[2019-07-10] MEDS ORDERED: Nystatin Cream 15 GM TUBE TP PRN (17:49)
[2019-07-10] MEDS ORDERED: Insulin LISPRO 300 UNITS/3 ML VIAL SQ SCH (21:00)
[2019-07-10] MEDS ORDERED: risperiDONE 1 MG TABLET PO SCH (21:00)
[2019-07-11] MEDS: Ipratropium/Albuterol Neb 3 ML IH SCH ×3 (03:29→11:42)
[2019-07-11] MEDS: *HR* Heparin 5,000 UNIT/ML VIAL SQ SCH (05:09)
[2019-07-11] MEDS: Gabapentin 400 MG CAPSULE PO SCH (07:57)
[2019-07-11] MEDS: Insulin LISPRO 300 UNITS/3 ML VIAL SQ SCH ×2 (07:58→11:25)
[2019-07-11] MEDS: Azithromycin 500 MG in 0.9 % Sodium Chloride 250 ML IVPB SCH (07:58)
[2019-07-11] MEDS: Aspirin Enteric Coated 81 MG Tablet PO SCH (07:58)
[2019-07-11] MEDS: Simethicone 80 MG TAB.CHEW PO SCH (07:58)
[2019-07-11] MEDS ORDERED: predniSONE 20 MG TABLET PO SCH (09:00)
[2019-07-11 11:24] VITALS: BP 116/69
[2019-07-12] MEDS ORDERED: Azithromycin 250 MG TABLET PO SCH (09:00)
[2019-07-13] MEDS ORDERED: Ergocalciferol (VIT D2) 50,000 UNIT (1.25MG) CAP PO SCH (09:00)
== END 2019-07-11 15:12 | disposition home or self-care (01) ==
LOC: 3ANU 20:45 → EMEROOARM 20:45 → SUATTDRO 23:35 → 3ANU 07-10 00:43
PROVIDERS: ADMIT Internal Medicine; ATTEND Family Medicine

== ENCOUNTER 2019-07-28 17:04 | Observation (INO) ==
[2019-07-28] MEDS ORDERED: Ipratropium/Albuterol Neb 3 ML IH ONE (17:44)
[2019-07-28 18:04] LABS: Basophils % 0.3 %; Eosinophils # 0.2 K/mcL (0.0-0.6); Eosinophils % 1.6 %; Hematocrit 36.9 % (35.3-44.9); Hemoglobin 11.6 g/dL (11.5-15.4); Immature Granulocytes % 0.8 % (0-4); Lymphocytes # 2.3 K/mcL (0.6-4.6); Lymphocytes % 24.5 %; Mean Corpuscular HGB Conc 31.4 g/dL (31.6-35.5); Mean Corpuscular Hemoglobin 30.6 pg (28.0-33.3); Mean Corpuscular Volume 97.4 fL (83.0-100.0); Mean Platelet Volume 9.8 fL (9.4-12.4); Monocytes # 0.5 K/mcL (0.0-1.3); Monocytes % 5.4 %; Neutrophils # 6.4 K/mcL (1.6-8.9); Platelet Count 209 K/mcL (140-400); Red Blood Count 3.79 M/mcL (3.82-4.97); Red Cell Distribution Width 13.8 % (11.5-14.5); Segmented Neutrophils % 67.4 %; White Blood Count 9.5 K/mcL (4.3-11.1)
[2019-07-28] MEDS ORDERED: Azithromycin 500 MG in 0.9 % Sodium Chloride 250 ML IVPB ONE (18:19)
[2019-07-28] MEDS ORDERED: Cefepime HCl 1,000 MG in 0.9 % Sodium Chloride Mini Bag 100 ML IVPB STA (18:19)
[2019-07-28 18:25] LABS: BUN/Creatinine Ratio 11 (6-26); Blood Urea Nitrogen 10 mg/dL (8-23); Calcium 8.5 mg/dL (8.6-10.3); Carbon Dioxide 35 mEq/L (23-29); Chloride 99 mEq/L (98-107); Glucose 120 mg/dL (70-105); Osmolality,Calculated 290 (280-300); Potassium 3.9 mEq/L (3.5-5.1); Sodium 140 mEq/L (136-145); eGFR For African Americans > 60 (> 60); eGFR For Non-African Americans > 60 (> 60)
[2019-07-28 18:32] LABS: Troponin I 0.03 ng/mL (< 0.04)
[2019-07-28] MEDS ORDERED: Nitroglycerin 0.4 MG TAB.SUBL SL PRN (20:41)
[2019-07-28] MEDS ORDERED: *HR* Dextrose 50 % in Water (Syg) 50 ML SYRINGE IVP PRN (22:27)
[2019-07-28] MEDS ORDERED: Dextrose Gel 15 GM/37.5 ML TUBE PO PRN ×2 (22:27)
[2019-07-28] MEDS ORDERED: D5% in Water 1,000 ML IVC PRN (22:27)
[2019-07-28] MEDS ORDERED: Furosemide 20 MG/2 ML VIAL IVP ONE (22:39)
[2019-07-28] MEDS: risperiDONE 1 MG TABLET PO SCH (22:45)
[2019-07-28] MEDS: ALPRAZolam 1 MG TABLET PO PRN (22:45)
[2019-07-28] MEDS: Gabapentin 400 MG CAPSULE PO SCH (22:45)
[2019-07-28] MEDS: *HR* Heparin 5,000 UNIT/ML VIAL SQ SCH (22:53)
[2019-07-28] MEDS: Ipratropium/Albuterol Neb 3 ML IH SCH (23:17)
[2019-07-29 02:45] LABS: Activated Partial Thrombo Time 21.2 Seconds (26.0-36.0)
[2019-07-29 02:57] LABS: Alanine Aminotransferase 15 Units/L (7-52); Albumin 3.6 g/dL (3.5-5.7); Albumin/Globulin Ratio 1.4 (1.1-2.2); Alkaline Phosphatase 70 Units/L (34-104); Aspartate Amino Transferase 17 Units/L (13-39); BUN/Creatinine Ratio 14 (6-26); Bilirubin,Total 0.4 mg/dL (0.3-1.0); Blood Urea Nitrogen 12 mg/dL (8-23); Calcium 8.3 mg/dL (8.6-10.3); Carbon Dioxide 34 mEq/L (23-29); Chloride 100 mEq/L (98-107); Globulin 2.6 g/dL (2.4-3.5); Glucose 175 mg/dL (70-105); Osmolality,Calculated 296 (280-300); Potassium 3.3 mEq/L (3.5-5.1); Sodium 141 mEq/L (136-145); Total Protein 6.2 g/dL (6.4-8.9); eGFR For African Americans > 60 (> 60); eGFR For Non-African Americans > 60 (> 60)
[2019-07-29 03:06] LABS: Basophils % 0.4 %; Eosinophils # 0.2 K/mcL (0.0-0.6); Eosinophils % 1.9 %; Hematocrit 35.5 % (35.3-44.9); Hemoglobin 11.5 g/dL (11.5-15.4); Immature Granulocytes % 0.9 % (0-4); Lymphocytes # 1.8 K/mcL (0.6-4.6); Mean Corpuscular HGB Conc 32.4 g/dL (31.6-35.5); Mean Corpuscular Hemoglobin 30.2 pg (28.0-33.3); Mean Corpuscular Volume 93.2 fL (83.0-100.0); Mean Platelet Volume 10.8 fL (9.4-12.4); Monocytes # 0.4 K/mcL (0.0-1.3); Monocytes % 4.8 %; Neutrophils # 5.5 K/mcL (1.6-8.9); Platelet Count 176 K/mcL (140-400); Red Blood Count 3.81 M/mcL (3.82-4.97); Red Cell Distribution Width 13.7 % (11.5-14.5)
[2019-07-29] MEDS: Ipratropium/Albuterol Neb 3 ML IH SCH ×5 (03:34→20:01)
[2019-07-29] MEDS: *HR* Heparin 5,000 UNIT/ML VIAL SQ SCH ×3 (05:58→20:31)
[2019-07-29] MEDS: Insulin LISPRO 300 UNITS/3 ML VIAL SQ SCH ×3 (08:56→18:10)
[2019-07-29] MEDS ORDERED: Cholecalciferol (D-3) 1,000 UNIT (25MCG) TABLET PO SCH (09:00)
[2019-07-29] MEDS: Aspirin Enteric Coated 81 MG Tablet PO SCH (09:09)
[2019-07-29] MEDS: Cholecalciferol (D-3) 1,000 UNIT (25MCG) TABLET PO SCH (09:09)
[2019-07-29] MEDS: Gabapentin 400 MG CAPSULE PO SCH ×2 (09:10→20:31)
[2019-07-29] MEDS: Furosemide 20 MG/2 ML VIAL IVP SCH (16:20)
[2019-07-29] MEDS: ALPRAZolam 1 MG TABLET PO PRN (20:31)
[2019-07-29] MEDS: risperiDONE 1 MG TABLET PO SCH (20:31)
[2019-07-30] MEDS: Ipratropium/Albuterol Neb 3 ML IH SCH ×4 (00:18→11:23)
[2019-07-30] MEDS: *HR* Heparin 5,000 UNIT/ML VIAL SQ SCH ×2 (05:40→13:15)
[2019-07-30 06:36] LABS: Hematocrit 37.8 % (35.3-44.9); Hemoglobin 11.9 g/dL (11.5-15.4); Mean Corpuscular HGB Conc 31.5 g/dL (31.6-35.5); Mean Corpuscular Hemoglobin 30.4 pg (28.0-33.3); Mean Corpuscular Volume 96.4 fL (83.0-100.0); Mean Platelet Volume 10.5 fL (9.4-12.4); Platelet Count 208 K/mcL (140-400); Red Blood Count 3.92 M/mcL (3.82-4.97); Red Cell Distribution Width 13.7 % (11.5-14.5); White Blood Count 6.5 K/mcL (4.3-11.1)
[2019-07-30 06:54] LABS: BUN/Creatinine Ratio 16 (6-26); Blood Urea Nitrogen 15 mg/dL (8-23); Calcium 8.7 mg/dL (8.6-10.3); Carbon Dioxide 40 mEq/L (23-29); Chloride 95 mEq/L (98-107); Glucose 143 mg/dL (70-105); Osmolality,Calculated 297 (280-300); Potassium 4.2 mEq/L (3.5-5.1); Sodium 142 mEq/L (136-145); eGFR For African Americans > 60 (> 60); eGFR For Non-African Americans > 60 (> 60)
[2019-07-30] MEDS: Insulin LISPRO 300 UNITS/3 ML VIAL SQ SCH ×2 (09:37→13:16)
[2019-07-30] MEDS: Gabapentin 400 MG CAPSULE PO SCH (09:45)
[2019-07-30] MEDS: Cholecalciferol (D-3) 1,000 UNIT (25MCG) TABLET PO SCH (09:45)
[2019-07-30] MEDS: Aspirin Enteric Coated 81 MG Tablet PO SCH (09:45)
[2019-07-30] MEDS ORDERED: Furosemide 20 MG TABLET PO ONE (10:34)
[2019-07-30] MEDS: Furosemide 20 MG/2 ML VIAL IVP SCH (10:35)
[2019-07-30 12:16] VITALS: BP 156/86
== END 2019-07-30 13:59 | disposition home or self-care (01) ==
LOC: EMEROOARM 17:04 → 2ANU 17:04 → SUATTDRO 20:44 → 2ANU 21:06
PROVIDERS: ADMIT Internal Medicine; ATTEND Internal Medicine

== ENCOUNTER 2019-08-15 14:03 | Observation (INO) ==
[2019-08-15] MEDS ORDERED: methylPREDNISolone 125 MG/2 ML VIAL IVP ONE (14:15)
[2019-08-15] MEDS ORDERED: Ipratropium/Albuterol Neb 3 ML IH ONE ×2 (14:15→15:20)
[2019-08-15 14:59] LABS: Hematocrit 39.4 % (35.3-44.9); Hemoglobin 13.3 g/dL (11.5-15.4); Immature Granulocytes % 1.1 % (0-4); Immature Platelets 3.2 % (1.1-6.1); Lymphocytes # 1.1 K/mcL (0.6-4.6); Lymphocytes % 9.4 %; Mean Corpuscular HGB Conc 33.8 g/dL (31.6-35.5); Mean Corpuscular Hemoglobin 30.6 pg (28.0-33.3); Mean Corpuscular Volume 90.6 fL (83.0-100.0); Mean Platelet Volume 9.8 fL (9.4-12.4); Monocytes # 0.3 K/mcL (0.0-1.3); Monocytes % 2.2 %; Neutrophils # 9.8 K/mcL (1.6-8.9); Platelet Count 243 K/mcL (140-400); Red Blood Count 4.35 M/mcL (3.82-4.97); Red Cell Distribution Width 13.3 % (11.5-14.5); Segmented Neutrophils % 87.3 %; White Blood Count 11.3 K/mcL (4.3-11.1)
[2019-08-15 15:07] LABS: INR 1.1; Prothrombin Time 12.1 Seconds (9.4-12.1)
[2019-08-15 15:33] LABS: Alanine Aminotransferase 17 Units/L (7-52); Albumin 4.2 g/dL (3.5-5.7); Albumin/Globulin Ratio 1.4 (1.1-2.2); Alkaline Phosphatase 77 Units/L (34-104); Aspartate Amino Transferase 16 Units/L (13-39); BUN/Creatinine Ratio 18 (6-26); Bilirubin,Direct 0.1 mg/dL (0.0-0.2); Bilirubin,Indirect 0.5 mg/dL (0.0-1.0); Bilirubin,Total 0.6 mg/dL (0.3-1.0); Blood Urea Nitrogen 16 mg/dL (8-23); Calcium 9.5 mg/dL (8.6-10.3); Carbon Dioxide 29 mEq/L (23-29); Chloride 98 mEq/L (98-107); Glucose 237 mg/dL (70-105); Osmolality,Calculated 291 (280-300); Potassium 4.1 mEq/L (3.5-5.1); Sodium 136 mEq/L (136-145); Total Protein 7.2 g/dL (6.4-8.9); Troponin I < 0.03 ng/mL (< 0.04); eGFR For African Americans > 60 (> 60); eGFR For Non-African Americans > 60 (> 60)
[2019-08-15] MEDS ORDERED: Ondansetron 4 MG/2 ML VIAL IVP PRN (17:10)
[2019-08-15] MEDS ORDERED: Naloxone 0.4 MG/ML INJ IVP PRN (17:10)
[2019-08-15] MEDS ORDERED: Dextrose Gel 15 GM/37.5 ML TUBE PO PRN ×2 (17:12)
[2019-08-15] MEDS ORDERED: *HR* Dextrose 50 % in Water (Syg) 50 ML SYRINGE IVP PRN (17:12)
[2019-08-15] MEDS ORDERED: D5% in Water 1,000 ML IVC PRN (17:12)
[2019-08-15] MEDS: Gabapentin 400 MG CAPSULE PO SCH (19:58)
[2019-08-15] MEDS: risperiDONE 1 MG TABLET PO SCH (19:59)
[2019-08-15] MEDS: *HR* Heparin 5,000 UNIT/ML VIAL SQ SCH (20:02)
[2019-08-15] MEDS: Furosemide 20 MG/2 ML VIAL IVP SCH (20:03)
[2019-08-15] MEDS: ALPRAZolam 1 MG TABLET PO PRN (22:04)
[2019-08-16 01:10] LABS: Basophils % 0.1 %; Hematocrit 37.3 % (35.3-44.9); Hemoglobin 12.5 g/dL (11.5-15.4); Immature Granulocytes % 0.9 % (0-4); Lymphocytes # 1.2 K/mcL (0.6-4.6); Lymphocytes % 9.1 %; Mean Corpuscular HGB Conc 33.5 g/dL (31.6-35.5); Mean Corpuscular Hemoglobin 30.3 pg (28.0-33.3); Monocytes # 0.3 K/mcL (0.0-1.3); Monocytes % 2.3 %; Neutrophils # 11.8 K/mcL (1.6-8.9); Platelet Count 273 K/mcL (140-400); Red Blood Count 4.13 M/mcL (3.82-4.97); Red Cell Distribution Width 13.5 % (11.5-14.5); Segmented Neutrophils % 87.6 %; White Blood Count 13.5 K/mcL (4.3-11.1)
[2019-08-16 01:12] LABS: Adenovirus Not Detected (Not Detect); Bordetella Pertussis Not Detected (Not Detect); Chlamydophila pneumoniae Not Detected (Not Detect); Coronavirus 229E Not Detected (Not Detect); Coronavirus HKU1 Not Detected (Not Detect); Coronavirus NL63 Not Detected (Not Detect); Coronavirus OC43 Not Detected (Not Detect); Human Metapneumovirus Not Detected (Not Detect); Human Rhinovirus/Enterovirus Not Detected (Not Detect); Influenza A Subtype 2009 H1 Not Detected (Not Detect); Influenza A Untypeable Not Detected (Not Detect); Influenza B Not Detected (Not Detect); Mycoplasma pneumoniae Not Detected (Not Detect); Parainfluenza Virus 1 Not Detected (Not Detect); Parainfluenza Virus 2 Not Detected (Not Detect); Parainfluenza Virus 3 Not Detected (Not Detect); Parainfluenza Virus 4 Not Detected (Not Detect); Respiratory Syncytial Virus Not Detected (Not Detect)
[2019-08-16 01:12] LABS: Mean Corpuscular Volume 90.3 fL (83.0-100.0)
[2019-08-16 01:30] LABS: BUN/Creatinine Ratio 21 (6-26); Blood Urea Nitrogen 22 mg/dL (8-23); Calcium 9.3 mg/dL (8.6-10.3); Carbon Dioxide 34 mEq/L (23-29); Chloride 94 mEq/L (98-107); Glucose 285 mg/dL (70-105); Magnesium 1.8 mg/dL (1.6-2.6); Osmolality,Calculated 298 (280-300); Potassium 4.3 mEq/L (3.5-5.1); Sodium 137 mEq/L (136-145); eGFR For African Americans > 60 (> 60); eGFR For Non-African Americans 54 (> 60)
[2019-08-16] MEDS: *HR* Heparin 5,000 UNIT/ML VIAL SQ SCH ×2 (05:35→17:12)
[2019-08-16] MEDS: Furosemide 20 MG/2 ML VIAL IVP SCH (09:19)
[2019-08-16] MEDS: Aspirin Enteric Coated 81 MG Tablet PO SCH (09:20)
[2019-08-16] MEDS: Insulin LISPRO 300 UNITS/3 ML VIAL SQ SCH ×3 (09:20→17:11)
[2019-08-16] MEDS: Gabapentin 400 MG CAPSULE PO SCH ×2 (09:20→21:27)
[2019-08-16] MEDS ORDERED: Azithromycin 250 MG TABLET PO SCH (11:00)
[2019-08-16] MEDS: Ipratropium/Albuterol Neb 3 ML IH PRN ×2 (12:15→21:30)
[2019-08-16 13:34] LABS: Hepatitis B Surface Antigen Nonreactive (Nonreactive)
[2019-08-16 14:03] LABS: HIV-1&2 Antibody & p24 Ag Nonreactive (Nonreactive); Hepatitis C Virus Antibody Nonreactive (Nonreactive)
[2019-08-16] MEDS ORDERED: Melatonin 3 MG TABLET PO SCH (21:00)
[2019-08-16] MEDS: risperiDONE 1 MG TABLET PO SCH (21:27)
[2019-08-16] MEDS: ALPRAZolam 1 MG TABLET PO PRN (22:03)
[2019-08-17] MEDS: *HR* Heparin 5,000 UNIT/ML VIAL SQ SCH (06:38)
[2019-08-17 07:01] VITALS: BP 141/83
[2019-08-17] MEDS: Ipratropium/Albuterol Neb 3 ML IH PRN (07:41)
[2019-08-17] MEDS: Insulin LISPRO 300 UNITS/3 ML VIAL SQ SCH (08:00)
[2019-08-17] MEDS: Gabapentin 400 MG CAPSULE PO SCH (08:01)
[2019-08-17] MEDS: Aspirin Enteric Coated 81 MG Tablet PO SCH (08:01)
[2019-08-17] MEDS ORDERED: Furosemide 20 MG TABLET PO SCH (09:00)
[2019-08-17] MEDS ORDERED: predniSONE 20 MG TABLET PO SCH (09:00)
== END 2019-08-17 12:02 | disposition home or self-care (01) ==
LOC: SUATTDRO → EMEROOARM 14:03 → 3BNU 14:03 → SUATTDRO 18:17 → 3BNU 18:39
PROVIDERS: ADMIT Internal Medicine; ATTEND Internal Medicine

== ENCOUNTER 2019-08-26 21:21 | Observation (INO) ==
[2019-08-26] MEDS ORDERED: Ipratropium/Albuterol Neb 3 ML IH ONE (21:48)
[2019-08-26 22:39] LABS: Basophils % 0.1 %; Hematocrit 41.8 % (35.3-44.9); Hemoglobin 13.8 g/dL (11.5-15.4); Immature Platelets 3.2 % (1.1-6.1); Lymphocytes # 1.2 K/mcL (0.6-4.6); Lymphocytes % 11.2 %; Mean Corpuscular Hemoglobin 30.5 pg (28.0-33.3); Mean Corpuscular Volume 92.5 fL (83.0-100.0); Mean Platelet Volume 9.8 fL (9.4-12.4); Monocytes # 0.1 K/mcL (0.0-1.3); Monocytes % 1.2 %; Neutrophils # 9.4 K/mcL (1.6-8.9); Platelet Count 249 K/mcL (140-400); Red Blood Count 4.52 M/mcL (3.82-4.97); Red Cell Distribution Width 13.5 % (11.5-14.5); Segmented Neutrophils % 86.5 %; White Blood Count 10.8 K/mcL (4.3-11.1)
[2019-08-26 22:56] LABS: Prothrombin Time 11.7 Seconds (9.4-12.1)
[2019-08-26 23:04] LABS: Alanine Aminotransferase 26 Units/L (7-52); Albumin/Globulin Ratio 1.4 (1.1-2.2); Alkaline Phosphatase 65 Units/L (34-104); Aspartate Amino Transferase 22 Units/L (13-39); BUN/Creatinine Ratio 23 (6-26); Bilirubin,Direct 0.1 mg/dL (0.0-0.2); Bilirubin,Indirect 0.6 mg/dL (0.0-1.0); Bilirubin,Total 0.7 mg/dL (0.3-1.0); Blood Urea Nitrogen 21 mg/dL (8-23); Calcium 9.3 mg/dL (8.6-10.3); Carbon Dioxide 29 mEq/L (23-29); Chloride 101 mEq/L (98-107); Globulin 2.8 g/dL (2.4-3.5); Glucose 176 mg/dL (70-105); Osmolality,Calculated 291 (280-300); Potassium 4.5 mEq/L (3.5-5.1); Sodium 137 mEq/L (136-145); Total Protein 6.8 g/dL (6.4-8.9); Troponin I < 0.03 ng/mL (< 0.04); eGFR For African Americans > 60 (> 60); eGFR For Non-African Americans > 60 (> 60)
[2019-08-26 23:07] LABS: VBG HCO3 34 mEq/L (21-27); VBG PCO2 61 mmHg (41-51); VBG PH 7.35 pH Units (7.32-7.42); VBG PO2 159 mmHg (25-50)
[2019-08-26 23:16] LABS: Bilirubin,Urine Negative (Negative); Blood,Urine Negative (Negative); Clarity,Urine Clear (Clear); Color,Urine Dark Yellow (Yellow); Glucose,Urine (UA) 100 mg/dL (Normal); Ketones,Urine Trace mg/dL (Negative); Leukocyte Esterase,Urine Negative (Negative); Nitrite,Urine Negative (Negative); PH,Urine 6.5 pH Units (5.0-8.0); Protein,Urine 30 mg/dL (Neg-Trace); Specific Gravity,Urine > 1.030 (1.010-1.025); Urobilinogen,Urine Normal (Normal)
[2019-08-26 23:19] LABS: Bacteria,Urine None Seen per hpf (None-Few); Hyaline Casts,Urine None Seen per lpf (None-Few); Squamous Epithelial Cell,Urine Many per lpf (None-Few); WBC,Urine 0-3 per hpf (0-3)
[2019-08-26] MEDS ORDERED: Isovue-370 500 ML BOTTLE IVP ONE (23:24)
[2019-08-26 23:29] LABS: RBC,Urine 0-3 per hpf (0-3)
[2019-08-27] MEDS ORDERED: Albuterol 2.5 MG/3 ML NEBULIZER IH PRN (00:47)
[2019-08-27] MEDS ORDERED: cefTRIAXone 1,000 MG in Water for inj. (sterile) 10 ML IVP SCH (01:00)
[2019-08-27] MEDS ORDERED: Gabapentin 400 MG CAPSULE PO ONE (04:18)
[2019-08-27] MEDS: Ipratropium/Albuterol Neb 3 ML IH SCH ×4 (04:54→22:43)
[2019-08-27] MEDS ORDERED: Nitroglycerin 0.4 MG TAB.SUBL SL PRN (07:27)
[2019-08-27] MEDS ORDERED: ALPRAZolam 1 MG TABLET PO PRN (07:27)
[2019-08-27] MEDS ORDERED: Nystatin Cream 15 GM TUBE TP PRN (07:27)
[2019-08-27] MEDS ORDERED: *HR* Promethazine 25 MG/ML VIAL IVP PRN (07:29)
[2019-08-27] MEDS ORDERED: MOM Conc 10 ML UD.LIQ PO PRN (07:29)
[2019-08-27] MEDS ORDERED: Mag Hydrox/Al Hydrox/Simeth 30 ML UDC PO PRN (07:29)
[2019-08-27] MEDS ORDERED: Ondansetron 4 MG/2 ML VIAL IVP PRN (07:29)
[2019-08-27] MEDS ORDERED: Naloxone 0.4 MG/ML INJ IVP PRN (07:29)
[2019-08-27] MEDS ORDERED: Acetaminophen 325 MG TABLET PO PRN (07:29)
[2019-08-27] MEDS ORDERED: Ipratropium/Albuterol Neb 3 ML IH PRN (07:32)
[2019-08-27] MEDS ORDERED: *HR* Dextrose 50 % in Water (Syg) 50 ML SYRINGE IVP PRN (07:44)
[2019-08-27] MEDS ORDERED: D5% in Water 1,000 ML IVC PRN (07:44)
[2019-08-27] MEDS ORDERED: Dextrose Gel 15 GM/37.5 ML TUBE PO PRN ×2 (07:44)
[2019-08-27 08:22] LABS: Basophils % 0.1 %; Eosinophils % 0.1 %; Hematocrit 41.5 % (35.3-44.9); Immature Granulocytes % 0.9 % (0-4); Lymphocytes # 2.2 K/mcL (0.6-4.6); Lymphocytes % 15.9 %; Mean Corpuscular HGB Conc 31.3 g/dL (31.6-35.5); Mean Corpuscular Hemoglobin 30.2 pg (28.0-33.3); Mean Corpuscular Volume 96.3 fL (83.0-100.0); Monocytes # 0.8 K/mcL (0.0-1.3); Monocytes % 5.6 %; Neutrophils # 10.8 K/mcL (1.6-8.9); Platelet Count 271 K/mcL (140-400); Red Blood Count 4.31 M/mcL (3.82-4.97); Red Cell Distribution Width 13.7 % (11.5-14.5); Segmented Neutrophils % 77.4 %
[2019-08-27 08:44] LABS: Alanine Aminotransferase 24 Units/L (7-52); Albumin 3.8 g/dL (3.5-5.7); Albumin/Globulin Ratio 1.4 (1.1-2.2); Aspartate Amino Transferase 19 Units/L (13-39); BUN/Creatinine Ratio 24 (6-26); Bilirubin,Total 0.5 mg/dL (0.3-1.0); Blood Urea Nitrogen 21 mg/dL (8-23); Calcium 9.1 mg/dL (8.6-10.3); Carbon Dioxide 30 mEq/L (23-29); Chloride 101 mEq/L (98-107); Globulin 2.7 g/dL (2.4-3.5); Glucose 118 mg/dL (70-105); Osmolality,Calculated 290 (280-300); Potassium 4.8 mEq/L (3.5-5.1); Sodium 138 mEq/L (136-145); Total Protein 6.5 g/dL (6.4-8.9); eGFR For African Americans > 60 (> 60); eGFR For Non-African Americans > 60 (> 60)
[2019-08-27] MEDS ORDERED: Furosemide 20 MG TABLET PO SCH (09:00)
[2019-08-27] MEDS ORDERED: Gabapentin 400 MG CAPSULE PO SCH ×2 (09:00→21:00)
[2019-08-27] MEDS ORDERED: predniSONE 20 MG TABLET PO SCH (09:00)
[2019-08-27] MEDS ORDERED: Aspirin Enteric Coated 81 MG Tablet PO SCH (09:00)
[2019-08-27 10:36] LABS: Alkaline Phosphatase 61 Units/L (34-104)
[2019-08-27] MEDS: Insulin LISPRO 300 UNITS/3 ML VIAL SQ SCH ×2 (13:38→17:54)
[2019-08-27] MEDS: *HR* Heparin 5,000 UNIT/ML VIAL SQ SCH (17:53)
[2019-08-27] MEDS ORDERED: Insulin LISPRO 300 UNITS/3 ML VIAL SQ SCH (21:00)
[2019-08-27] MEDS ORDERED: risperiDONE 1 MG TABLET PO SCH (21:00)
[2019-08-28 02:58] LABS: Basophils % 0.1 %; Eosinophils % 0.1 %; Hematocrit 37.5 % (35.3-44.9); Hemoglobin 11.5 g/dL (11.5-15.4); Immature Granulocytes % 0.8 % (0-4); Lymphocytes # 2.9 K/mcL (0.6-4.6); Lymphocytes % 20.4 %; Mean Corpuscular HGB Conc 30.7 g/dL (31.6-35.5); Mean Corpuscular Hemoglobin 30.3 pg (28.0-33.3); Mean Corpuscular Volume 98.7 fL (83.0-100.0); Monocytes # 0.8 K/mcL (0.0-1.3); Monocytes % 5.5 %; Neutrophils # 10.6 K/mcL (1.6-8.9); Platelet Count 250 K/mcL (140-400); Red Cell Distribution Width 13.9 % (11.5-14.5); Segmented Neutrophils % 73.1 %; White Blood Count 14.4 K/mcL (4.3-11.1)
[2019-08-28 03:21] LABS: Calcium 8.6 mg/dL (8.6-10.3); Potassium 4.3 mEq/L (3.5-5.1)
[2019-08-28] MEDS: Ipratropium/Albuterol Neb 3 ML IH SCH ×2 (04:14→10:21)
[2019-08-28] MEDS: *HR* Heparin 5,000 UNIT/ML VIAL SQ SCH (05:45)
[2019-08-28 07:33] VITALS: BP 135/68
[2019-08-31] MEDS ORDERED: Ergocalciferol (VIT D2) 50,000 UNIT (1.25MG) CAP PO SCH (07:27)
== END 2019-08-28 12:24 | disposition home or self-care (01) ==
LOC: EMEROOARM 21:21 → 3BNU 21:21
PROVIDERS: ADMIT Internal Medicine; ATTEND Internal Medicine

== ENCOUNTER 2022-01-12 19:15 | Inpatient (IN) ==
[2022-01-12 20:19] LABS: Bilirubin,Urine Negative (Negative); Blood,Urine Negative (Negative); Clarity,Urine Turbid (Clear); Color,Urine Yellow (Yellow); Glucose,Urine (UA) Normal (Normal); Hyaline Casts,Urine Many per lpf (None Seen); Ketones,Urine Negative (Negative); Leukocyte Esterase,Urine Negative (Negative); Mucus,Urine Moderate per lpf (None-Few); Nitrite,Urine Negative (Negative); PH,Urine 5.5 pH Units (5.0-8.0); Protein,Urine 50 mg/dL (Neg-Trace); RBC,Urine 0-3 per hpf (0-3); Specific Gravity,Urine 1.025 (1.010-1.025); Squamous Epithelial Cell,Urine Few per hpf (None-Few); Urobilinogen,Urine Normal (Normal); WBC,Urine 0-3 per hpf (0-3)
[2022-01-12 20:19] LABS: VBG HCO3 32 mEq/L (21-27); VBG PCO2 57 mmHg (41-51); VBG PH 7.35 pH Units (7.32-7.42); VBG PO2 52 mmHg (25-50)
[2022-01-12 20:22] LABS: Basophils % 0.1 %; Hematocrit 37.7 % (35.3-44.9); Hemoglobin 12.5 g/dL (11.5-15.4); Immature Granulocytes % 0.7 % (0-4); Lymphocytes # 1.9 K/mcL (0.6-4.6); Lymphocytes % 9.1 %; Mean Corpuscular HGB Conc 33.2 g/dL (31.6-35.5); Mean Corpuscular Hemoglobin 30.2 pg (28.0-33.3); Mean Corpuscular Volume 91.1 fL (83.0-100.0); Mean Platelet Volume 10.3 fL (9.4-12.4); Monocytes # 0.7 K/mcL (0.0-1.3); Monocytes % 3.3 %; Neutrophils # 18.4 K/mcL (1.6-8.9); Platelet Count 288 K/mcL (140-400); Red Blood Count 4.14 M/mcL (3.82-4.97); Red Cell Distribution Width 14.9 % (11.5-14.5); Segmented Neutrophils % 86.8 %; White Blood Count 21.3 K/mcL (4.3-11.1)
[2022-01-12 20:32] LABS: Albumin 4.1 g/dL (3.5-5.7); Albumin/Globulin Ratio 1.2 (1.1-2.2); Bilirubin,Total 1.4 mg/dL (0.3-1.0); Calcium 8.9 mg/dL (8.6-10.3); Globulin 3.4 g/dL (2.4-3.5); Magnesium 1.8 mg/dL (1.6-2.6); Potassium 4.5 mEq/L (3.5-5.1); Total Protein 7.5 g/dL (6.4-8.9)
[2022-01-12] MEDS ORDERED: Piperacillin/Tazobactam 3.375 GM in 0.9 % Sodium Chloride Mini Bag 100 ML IVPB ONE (21:21)
[2022-01-12] MEDS ORDERED: Vancomycin 1,750 MG/517.5 ML IV.SOLN IVPB ONE (22:00)
[2022-01-12] MEDS ORDERED: Acetaminophen 325 MG TABLET PO PRN (23:18)
[2022-01-12] MEDS ORDERED: *HR* HYDROcodone/Acet 5/325 mg TABLET PO PRN (23:18)
[2022-01-12] MEDS ORDERED: Naloxone 0.4 MG/ML INJ IVP PRN (23:18)
[2022-01-12] MEDS ORDERED: Ondansetron 4 MG/2 ML VIAL IVP PRN (23:18)
[2022-01-12] MEDS ORDERED: Azithromycin 500 MG in 0.9 % Sodium Chloride 250 ML IVPB SCH (23:45)
[2022-01-13] MEDS ORDERED: Ipratropium/Albuterol Neb 3 ML IH PRN (00:07)
[2022-01-13 00:37] LABS: Adenovirus Not Detected (Not Detect); Coronavirus 229E Not Detected (Not Detect); Coronavirus HKU1 Not Detected (Not Detect); Coronavirus NL63 Not Detected (Not Detect); Coronavirus OC43 Not Detected (Not Detect); Human Metapneumovirus Not Detected (Not Detect); Human Rhinovirus/Enterovirus Not Detected (Not Detect); SARS-CoV-2 Not Detected (Not Detect)
[2022-01-13 00:39] LABS: Bordetella Pertussis Not Detected (Not Detect); Chlamydophila pneumoniae Not Detected (Not Detect); Influenza A Subtype 2009 H1 Not Detected (Not Detect); Influenza B Not Detected (Not Detect); Mycoplasma pneumoniae Not Detected (Not Detect); Parainfluenza Virus 1 Not Detected (Not Detect); Parainfluenza Virus 2 Not Detected (Not Detect); Parainfluenza Virus 3 Not Detected (Not Detect); Parainfluenza Virus 4 Not Detected (Not Detect); Respiratory Syncytial Virus Not Detected (Not Detect)
[2022-01-13] MEDS: Ringers Solution, Lactated 1,000 ML IVC SCH ×6 (01:40→19:11)
[2022-01-13 01:53] LABS: Basophils % 0.1 %; Hematocrit 36.5 % (35.3-44.9); Hemoglobin 11.4 g/dL (11.5-15.4); Immature Granulocytes % 0.9 % (0-4); Lymphocytes # 2.6 K/mcL (0.6-4.6); Lymphocytes % 11.5 %; Mean Corpuscular HGB Conc 31.2 g/dL (31.6-35.5); Mean Corpuscular Hemoglobin 29.5 pg (28.0-33.3); Mean Corpuscular Volume 94.3 fL (83.0-100.0); Mean Platelet Volume 10.3 fL (9.4-12.4); Monocytes # 0.8 K/mcL (0.0-1.3); Monocytes % 3.6 %; Neutrophils # 18.8 K/mcL (1.6-8.9); Platelet Count 240 K/mcL (140-400); Red Blood Count 3.87 M/mcL (3.82-4.97); Red Cell Distribution Width 14.8 % (11.5-14.5); Segmented Neutrophils % 83.9 %; White Blood Count 22.4 K/mcL (4.3-11.1)
[2022-01-13 02:01] LABS: INR 1.4; Prothrombin Time 15.1 Seconds (9.4-12.1)
[2022-01-13 02:20] LABS: Calcium 8.5 mg/dL (8.6-10.3); Potassium 4.7 mEq/L (3.5-5.1)
[2022-01-13] MEDS: Ipratropium/Albuterol Neb 3 ML IH SCH ×6 (04:21→23:15)
[2022-01-13] MEDS: MethylPREDNISolone 40 MG/ML VIAL IVP SCH ×2 (05:29→19:10)
[2022-01-13] MEDS: *HR* Heparin 5,000 UNIT/ML VIAL SQ SCH ×3 (05:29→22:00)
[2022-01-13] MEDS ORDERED: 0.9 % Sodium Chloride 500 ML IVC ONE (08:16)
[2022-01-13] MEDS ORDERED: Ringers Solution, Lactated 2,000 ML ONE (08:21)
[2022-01-13] MEDS ORDERED: 0.9 % Sodium Chloride 500 ML ONE (08:21)
[2022-01-13] MEDS ORDERED: 0.9 % Sodium Chloride 1,000 ML ONE (08:22)
[2022-01-13] MEDS ORDERED: cefTRIAXone 1,000 MG in 0.9 % Sodium Chloride 10 ML IVP SCH (09:00)
[2022-01-13] MEDS ORDERED: Dextrose 4 GM Chewable Tablets PO PRN ×2 (10:31)
[2022-01-13] MEDS ORDERED: D5% in Water 1,000 ML IVC PRN (10:31)
[2022-01-13] MEDS ORDERED: *HR* Dextrose 50 % in Water (Syg) 50 ML SYRINGE IVP PRN (10:31)
[2022-01-13] MEDS: Insulin LISPRO 300 UNITS/3 ML VIAL SUBQ SCH ×4 (11:10→23:57)
[2022-01-13] MEDS ORDERED: Ringers Solution, Lactated 500 ML IVC ONE (12:00)
[2022-01-13 15:07] LABS: Thyroid Stimulating Hormone 1.513 mcIU/mL (0.340-5.600)
[2022-01-13] MEDS: Piperacillin/Tazobactam 3.375 GM in 0.9 % Sodium Chloride Mini Bag 100 ML IVPB SCH (16:37)
[2022-01-13] MEDS: Doxycycline 100 MG in 0.9 % Sodium Chloride Mini Bag 100 ML IVPB SCH (19:10)
[2022-01-13] MEDS: Melatonin 3 MG TABLET PO PRN (20:15)
[2022-01-13 22:13] LABS: Creatinine,Urine 155 mg/dL
[2022-01-13 22:55] LABS: A.calcoaceticus-baumannii cplx Not Detected (Not Detect); Bacteroides fragilis by PCR Not Detected (Not Detect); Enterobacterales by PCR Not Detected (Not Detect); Enterococcus faecalis by PCR Not Detected (Not Detect); Enterococcus faecium by PCR Not Detected (Not Detect); Staph epidermidis by PCR Not Detected (Not Detect); Staph lugdunensis by PCR Not Detected (Not Detect); Staphylococcus aureus by PCR Not Detected (Not Detect); Staphylococcus by PCR DETECTED (Not Detect); Streptococcus agalactiae(B)PCR Not Detected (Not Detect); Streptococcus by PCR Not Detected (Not Detect); Streptococcus pneumoniae PCR Not Detected (Not Detect); Streptococcus pyogenes (A) PCR Not Detected (Not Detect)
[2022-01-13 22:56] LABS: Candida albicans by PCR Not Detected (Not Detect); Candida auris by PCR Not Detected (Not Detect); Candida glabrata by PCR Not Detected (Not Detect); Candida krusei by PCR Not Detected (Not Detect); Candida parapsilosis by PCR Not Detected (Not Detect); Candida tropicalis by PCR Not Detected (Not Detect); Crypto. neoformans/gattii PCR Not Detected (Not Detect); Enterobacter cloacae Cmplx PCR Not Detected (Not Detect); Escherichia coli by PCR Not Detected (Not Detect); Klebs. pneumoniae group by PCR Not Detected (Not Detect); Klebsiella aerogenes by PCR Not Detected (Not Detect); Klebsiella oxytoca by PCR Not Detected (Not Detect); Proteus by PCR Not Detected (Not Detect); Pseudomonas aeruginosa by PCR Not Detected (Not Detect); Salmonella species by PCR Not Detected (Not Detect); Serratia marcescens by PCR Not Detected (Not Detect); Stenotrophomonas maltophilia Not Detected (Not Detect)
[2022-01-14] MEDS: Piperacillin/Tazobactam 3.375 GM in 0.9 % Sodium Chloride Mini Bag 100 ML IVPB SCH ×3 (01:29→15:02)
[2022-01-14] MEDS ORDERED: Vancomycin 1,750 MG/517.5 ML IV.SOLN IVPB ONE (02:00)
[2022-01-14] MEDS: Ringers Solution, Lactated 1,000 ML IVC SCH (03:44)
[2022-01-14] MEDS: Ipratropium/Albuterol Neb 3 ML IH SCH ×6 (03:44→23:19)
[2022-01-14] MEDS: *HR* Heparin 5,000 UNIT/ML VIAL SQ SCH ×3 (05:14→21:23)
[2022-01-14] MEDS: MethylPREDNISolone 40 MG/ML VIAL IVP SCH (05:14)
[2022-01-14] MEDS: Doxycycline 100 MG in 0.9 % Sodium Chloride Mini Bag 100 ML IVPB SCH ×2 (05:15→16:24)
[2022-01-14 05:35] LABS: Mean Corpuscular HGB Conc 31.3 g/dL (31.6-35.5); Mean Corpuscular Hemoglobin 29.9 pg (28.0-33.3); Mean Corpuscular Volume 95.6 fL (83.0-100.0); Mean Platelet Volume 10.4 fL (9.4-12.4); Platelet Count 151 K/mcL (140-400); Red Blood Count 2.51 M/mcL (3.82-4.97); Red Cell Distribution Width 14.7 % (11.5-14.5)
[2022-01-14 05:57] LABS: Calcium 7.5 mg/dL (8.6-10.3); Potassium 4.7 mEq/L (3.5-5.1)
[2022-01-14 06:10] LABS: White Blood Count 10.6 K/mcL (4.3-11.1)
[2022-01-14 06:11] LABS: Hemoglobin 7.5 g/dL (11.5-15.4)
[2022-01-14] MEDS: Insulin LISPRO 300 UNITS/3 ML VIAL SUBQ SCH ×4 (07:54→21:00)
[2022-01-14] MEDS: Aspirin Enteric Coated 81 MG Tablet PO SCH (09:09)
[2022-01-14] MEDS: Primidone 50 MG TABLET PO SCH (09:09)
[2022-01-14] MEDS: risperiDONE 1 MG TABLET PO SCH (21:22)
[2022-01-14] MEDS: amLODIPine 5 MG TABLET PO SCH (21:23)
[2022-01-14] MEDS: Melatonin 3 MG TABLET PO PRN (21:29)
[2022-01-15] MEDS: Piperacillin/Tazobactam 3.375 GM in 0.9 % Sodium Chloride Mini Bag 100 ML IVPB SCH ×3 (01:16→16:44)
[2022-01-15] MEDS: Ipratropium/Albuterol Neb 3 ML IH SCH ×6 (03:29→23:45)
[2022-01-15] MEDS: Doxycycline 100 MG in 0.9 % Sodium Chloride Mini Bag 100 ML IVPB SCH ×2 (06:10→16:43)
[2022-01-15] MEDS: *HR* Heparin 5,000 UNIT/ML VIAL SQ SCH ×3 (06:11→22:09)
[2022-01-15 06:49] LABS: Hematocrit 30.5 % (35.3-44.9); Mean Corpuscular HGB Conc 30.5 g/dL (31.6-35.5); Mean Platelet Volume 10.3 fL (9.4-12.4); Platelet Count 221 K/mcL (140-400); Red Blood Count 3.21 M/mcL (3.82-4.97); Red Cell Distribution Width 14.7 % (11.5-14.5); White Blood Count 13.7 K/mcL (4.3-11.1)
[2022-01-15 06:51] LABS: Hemoglobin 9.3 g/dL (11.5-15.4)
[2022-01-15 06:59] LABS: Calcium 8.4 mg/dL (8.6-10.3); Potassium 5.1 mEq/L (3.5-5.1)
[2022-01-15] MEDS ORDERED: 0.9 % Sodium Chloride 1,000 ML IVC SCH (07:30)
[2022-01-15] MEDS: predniSONE 20 MG TABLET PO SCH (08:17)
[2022-01-15] MEDS: amLODIPine 5 MG TABLET PO SCH (08:18)
[2022-01-15] MEDS: Primidone 50 MG TABLET PO SCH (08:21)
[2022-01-15] MEDS: Aspirin Enteric Coated 81 MG Tablet PO SCH (08:21)
[2022-01-15] MEDS: Insulin LISPRO 300 UNITS/3 ML VIAL SUBQ SCH ×4 (08:23→22:09)
[2022-01-15] MEDS ORDERED: Perflutren Lipid Microsphere 1.3 ML in 0.9 % Sodium Chloride 8.7 ML IVP PRN (09:58)
[2022-01-15] MEDS: Melatonin 3 MG TABLET PO PRN (20:41)
[2022-01-15] MEDS: risperiDONE 1 MG TABLET PO SCH (20:41)
[2022-01-15] MEDS: ALPRAZolam 1 MG TABLET PO PRN (22:08)
[2022-01-15] MEDS: Gabapentin 400 MG CAPSULE PO SCH (22:08)
[2022-01-16] MEDS: Piperacillin/Tazobactam 3.375 GM in 0.9 % Sodium Chloride Mini Bag 100 ML IVPB SCH ×3 (00:08→15:54)
[2022-01-16 04:10] LABS: Hemoglobin 9.5 g/dL (11.5-15.4); Mean Corpuscular HGB Conc 30.6 g/dL (31.6-35.5); Mean Corpuscular Hemoglobin 29.7 pg (28.0-33.3); Mean Corpuscular Volume 96.9 fL (83.0-100.0); Mean Platelet Volume 9.8 fL (9.4-12.4); Platelet Count 198 K/mcL (140-400); Red Cell Distribution Width 14.4 % (11.5-14.5); White Blood Count 10.5 K/mcL (4.3-11.1)
[2022-01-16] MEDS: Ipratropium/Albuterol Neb 3 ML IH SCH ×6 (04:16→23:26)
[2022-01-16 04:31] LABS: Calcium 8.4 mg/dL (8.6-10.3)
[2022-01-16] MEDS: Doxycycline 100 MG in 0.9 % Sodium Chloride Mini Bag 100 ML IVPB SCH ×2 (06:24→18:40)
[2022-01-16] MEDS: *HR* Heparin 5,000 UNIT/ML VIAL SQ SCH ×3 (06:26→21:01)
[2022-01-16] MEDS: Insulin LISPRO 300 UNITS/3 ML VIAL SUBQ SCH ×4 (07:47→21:02)
[2022-01-16] MEDS: predniSONE 20 MG TABLET PO SCH (08:39)
[2022-01-16] MEDS: amLODIPine 5 MG TABLET PO SCH (08:40)
[2022-01-16] MEDS: Aspirin Enteric Coated 81 MG Tablet PO SCH (08:40)
[2022-01-16] MEDS: Gabapentin 400 MG CAPSULE PO SCH ×3 (08:40→21:02)
[2022-01-16] MEDS: Primidone 50 MG TABLET PO SCH (08:46)
[2022-01-16] MEDS: risperiDONE 1 MG TABLET PO SCH (21:02)
[2022-01-16] MEDS: ALPRAZolam 1 MG TABLET PO PRN (21:02)
[2022-01-17] MEDS: Piperacillin/Tazobactam 3.375 GM in 0.9 % Sodium Chloride Mini Bag 100 ML IVPB SCH (00:31)
[2022-01-17] MEDS: Ipratropium/Albuterol Neb 3 ML IH SCH ×6 (04:05→23:59)
[2022-01-17] MEDS: Doxycycline 100 MG in 0.9 % Sodium Chloride Mini Bag 100 ML IVPB SCH ×2 (06:38→17:50)
[2022-01-17] MEDS: *HR* Heparin 5,000 UNIT/ML VIAL SQ SCH ×3 (06:38→21:37)
[2022-01-17 07:15] LABS: Hematocrit 32.5 % (35.3-44.9); Hemoglobin 9.9 g/dL (11.5-15.4); Mean Corpuscular HGB Conc 30.5 g/dL (31.6-35.5); Mean Corpuscular Hemoglobin 29.4 pg (28.0-33.3); Mean Corpuscular Volume 96.4 fL (83.0-100.0); Mean Platelet Volume 9.7 fL (9.4-12.4); Platelet Count 208 K/mcL (140-400); Red Blood Count 3.37 M/mcL (3.82-4.97); Red Cell Distribution Width 14.5 % (11.5-14.5); White Blood Count 9.5 K/mcL (4.3-11.1)
[2022-01-17 07:40] LABS: Calcium 8.6 mg/dL (8.6-10.3); Potassium 4.9 mEq/L (3.5-5.1)
[2022-01-17] MEDS: Insulin LISPRO 300 UNITS/3 ML VIAL SUBQ SCH ×4 (07:48→21:25)
[2022-01-17] MEDS: Aspirin Enteric Coated 81 MG Tablet PO SCH (08:50)
[2022-01-17] MEDS: amLODIPine 5 MG TABLET PO SCH (08:51)
[2022-01-17] MEDS: Gabapentin 400 MG CAPSULE PO SCH ×3 (08:51→21:36)
[2022-01-17] MEDS: Primidone 50 MG TABLET PO SCH (08:52)
[2022-01-17] MEDS: cefTRIAXone 1,000 MG in 0.9 % Sodium Chloride 10 ML IVP SCH (09:14)
[2022-01-17] MEDS: risperiDONE 1 MG TABLET PO SCH (21:36)
[2022-01-17] MEDS: ALPRAZolam 1 MG TABLET PO PRN (21:37)
[2022-01-18] MEDS: Piperacillin/Tazobactam 3.375 GM in 0.9 % Sodium Chloride Mini Bag 100 ML IVPB SCH (02:02)
[2022-01-18 02:20] LABS: Hematocrit 31.2 % (35.3-44.9); Hemoglobin 9.7 g/dL (11.5-15.4); Mean Corpuscular HGB Conc 31.1 g/dL (31.6-35.5); Mean Corpuscular Hemoglobin 29.5 pg (28.0-33.3); Mean Corpuscular Volume 94.8 fL (83.0-100.0); Mean Platelet Volume 9.5 fL (9.4-12.4); Platelet Count 191 K/mcL (140-400); Red Blood Count 3.29 M/mcL (3.82-4.97); Red Cell Distribution Width 14.3 % (11.5-14.5); White Blood Count 8.2 K/mcL (4.3-11.1)
[2022-01-18 02:43] LABS: Calcium 8.6 mg/dL (8.6-10.3); Potassium 4.5 mEq/L (3.5-5.1)
[2022-01-18] MEDS: Ipratropium/Albuterol Neb 3 ML IH SCH ×4 (03:54→15:31)
[2022-01-18] MEDS: Doxycycline 100 MG in 0.9 % Sodium Chloride Mini Bag 100 ML IVPB SCH (05:58)
[2022-01-18] MEDS: *HR* Heparin 5,000 UNIT/ML VIAL SQ SCH ×2 (05:58→14:17)
[2022-01-18] MEDS: Insulin LISPRO 300 UNITS/3 ML VIAL SUBQ SCH ×2 (08:13→12:36)
[2022-01-18] MEDS: Primidone 50 MG TABLET PO SCH (09:00)
[2022-01-18] MEDS: cefTRIAXone 1,000 MG in 0.9 % Sodium Chloride 10 ML IVP SCH (09:01)
[2022-01-18] MEDS: amLODIPine 5 MG TABLET PO SCH (09:01)
[2022-01-18] MEDS: Gabapentin 400 MG CAPSULE PO SCH ×2 (09:01→14:17)
[2022-01-18] MEDS: Aspirin Enteric Coated 81 MG Tablet PO SCH (09:01)
[2022-01-18 11:55] VITALS: BP 163/86; PULSE 84; TEMP 98.2
[2022-01-18 14:37] VITALS: O2SAT 97
== END 2022-01-18 18:27 | disposition home or self-care (01) | DRG 871 ==
LOC: EMEROOARM 19:15 → 2ANU 19:15 → SUATTDRO 01-13 00:16 → 2ANU 01-13 00:49 → SUATTDRO 01-13 10:13 → 2NNU 01-13 12:45 → 2ANU 01-15 11:11
PROVIDERS: ADMIT Internal Medicine; ATTEND Family Medicine